=== PATIENT | female | born 1930 | race American Indian/Alaskan Native ===

== ENCOUNTER 2018-01-13 16:07 | Inpatient (IN) | payer MEDICARE ==
--- NOTE | 2018-01-13 18:07 | Emergency Department Report ---
ED Altered Mental Status HPI - General Chief Complaint: Altered Mental Status Stated Complaint: CVA Time Seen by Provider: 01/13/18 17:53 Source: EMS Mode of arrival: Stretcher Limitations: Altered Mental Status - History of Present Illness Initial Comments: Sent from skilled nursing with change in mental status. Does have hx history of previous CVA. With history of dnr per [facility], the family states that she is now no longer able to speak with worsening of her left-sided deficits, there were that she had a new event the symptoms are worse since Wednesday she is awake she is following commands with eyes open, but speech d/o and worse left sided weakness, pt here from tx for further eval, poss worsening swallowing per family. 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 MD Complaint: altered mental status, weakness -: days(s) Severity: Unable to Determine Context: other (lives in tx) - Related Data Home Medications Medication Instructions Recorded Confirmed Last Taken Amoxicillin/Potassium Clav 1 each PO BID 01/13/18 01/13/18 Unknown [Augmentin 875-125 Tablet] Aspirin 81 mg PO QDAY 01/13/18 01/13/18 Unknown Docusate Sodium [Colace] 100 mg PO BID PRN 01/13/18 01/13/18 Unknown Ferrous Sulfate [Feosol] 325 mg PO BID 01/13/18 01/13/18 Unknown Glucagon,Human Recombinant 1 mg IJ Q15MIN PRN 01/13/18 01/13/18 Unknown [Glucagon Emergency Kit] Allergies Allergy/AdvReac Type Severity Reaction Status Date / Time No Known Allergies Allergy Unverified 01/13/18 20:54 ED Review of Systems ROS: Stated complaint: CVA Other details as noted in HPI Comment: Unobtainable due to pts medical conditions ED Past Medical Hx - Medications Home Medications: Home Medications Medication Instructions Recorded Confirmed Last Taken Type Amoxicillin/Potassium Clav 1 each PO BID 01/13/18 01/13/18 Unknown History [Augmentin 875-125 Tablet] Aspirin 81 mg PO QDAY 01/13/18 01/13/18 Unknown History Docusate Sodium [Colace] 100 mg PO BID PRN 01/13/18 01/13/18 Unknown History Ferrous Sulfate [Feosol] 325 mg PO BID 01/13/18 01/13/18 Unknown History Glucagon,Human Recombinant 1 mg IJ Q15MIN PRN 01/13/18 01/13/18 Unknown History [Glucagon Emergency Kit] ED Physical Exam - General Limitations: Altered Mental Status General appearance: other (eyes open awake, supple neck, aphasic and dysarthric w/ l side deficitis upper/lower) - Eye Eye exam: Present: nystagmus - ENT ENT exam: Present: other (no stridor) - Neck Neck exam: Present: normal inspection. Absent: tenderness, meningismus - Respiratory Respiratory exam: Present: normal lung sounds bilaterally. Absent: wheezes, rales, rhonchi, stridor, chest wall tenderness, accessory muscle use, decreased breath sounds, prolonged expiratory - Cardiovascular Cardiovascular Exam: Present: regular rate - GI/Abdominal GI/Abdominal exam: Present: soft. Absent: tenderness, guarding, rebound, rigid , mass, bruit, pulsatile mass - Extremities Exam Extremities exam: Absent: joint swelling, calf tenderness - Back Exam Back exam: Absent: rash noted - Neurological Exam Neurological exam: Present: other (slurred speech, dense left-sided hemiparesis) - Skin Skin exam: Absent: cyanosis, diaphoretic, erythema, urticaria, vesicles, petechiae, pallor - Assessment Assessment Interval: Baseline - Level of Consciousness 1a. Level of Consciousness: not alert, arousable - LOC Questions 1b. LOC Questions: answers no questions correctly - LOC Command 1c. LOC Commands: performs no tasks correctly - Best Gaze 2. Best Gaze: partial gaze palsy - Visual 3. Visual: partial hemianopia - Facial Palsy 4. Facial Palsy: partial paralysis - Motor Arm 5b. Motor Arm Right: no drift 5a. Motor Arm Left: no movement - Motor Leg 6a. Motor Leg Left: no movement 6b. Motor Leg Right: no drift - Limb Ataxia 7. Limb Ataxia: present 1 limb - Sensory 8. Sensory: mild/moderate sensory loss - Best Language 9. Best Language: mild/moderate aphasia - Dysarthria 10. Dysarthria: mild/moderate dysarthria - Extinction and Inattention 11. Extinction/Inattention: visual/tactile inattention - Scoring Total Score: 22 Stroke Severity: Severe Stroke ED Course Vital Signs 01/13/18 01/13/18 01/13/18 16:11 16:20 18:38 Temperature 100.8 F H Pulse Rate 120 H 120 H 116 H Respiratory 32 H 36 H 29 H Rate Blood Pressure 188/90 Blood Pressure 144/77 [Left] O2 Sat by Pulse 96 100 Oximetry 01/13/18 01/13/18 01/13/18 18:46 19:00 19:16 Temperature Pulse Rate 121 H 112 H 124 H Respiratory 29 H 31 H 41 H Rate Blood Pressure 147/65 147/65 143/68 Blood Pressure [Left] O2 Sat by Pulse 91 99 100 Oximetry 01/13/18 01/13/18 01/13/18 19:30 19:46 20:49 Temperature Pulse Rate 116 H 113 H 118 H Respiratory 36 H 36 H 29 H Rate Blood Pressure 143/68 143/68 143/68 Blood Pressure [Left] O2 Sat by Pulse 99 100 98 Oximetry - Reevaluation(s) Reevaluation #1: 01/13/18 22:06 Patient was placed in a room studies were obtained case was discussed with [facility] nurse practitioner merline - Lab Data Result diagrams: 01/13/18 18:24 01/13/18 18:24 Lab Results 01/13/18 01/13/18 Range/Units 18:24 18:24 WBC 12.0 H (4.5-11.0) K/mm3 RBC 3.06 L (3.65-5.03) M/mm3 Hgb 7.7 L (10.1-14.3) gm/dl Hct 25.4 L (30.3-42.9) % MCV 83 (79-97) fl MCH 25 L (28-32) pg MCHC 30 (30-34) % RDW 18.7 H (13.2-15.2) % Plt Count 238 (140-440) K/mm3 Lymph % (Auto) 4.9 L (13.4-35.0) % [place] % (Auto) 4.8 (0.0-7.3) % Eos % (Auto) 0.1 (0.0-4.3) % Baso % (Auto) 0.5 (0.0-1.8) % Lymph # 0.6 L (1.2-5.4) K/mm3 [place] # 0.6 (0.0-0.8) K/mm3 Eos # 0.0 (0.0-0.4) K/mm3 Baso # 0.1 (0.0-0.1) K/mm3 Seg Neutrophils % 89.7 H (40.0-70.0) % Seg Neutrophils # 10.7 H (1.8-7.7) K/mm3 Sodium 147 H (137-145) mmol/L Potassium 4.6 (3.6-5.0) mmol/L Chloride 111.0 H (98-107) mmol/L Carbon Dioxide 19 L (22-30) mmol/L Anion Gap 22 mmol/L BUN 25 H (7-17) mg/dL Creatinine 1.4 H (0.7-1.2) mg/dL Estimated GFR 43 ml/min BUN/Creatinine Ratio 18 % Glucose 166 H (65-100) mg/dL Calcium 7.9 L (8.4-10.2) mg/dL Total Bilirubin 0.70 (0.1-1.2) mg/dL AST 21 (5-40) units/L ALT 15 (7-56) units/L Alkaline Phosphatase 525 H (35-129) units/L Troponin T 0.122 H* (0.00-0.029) ng/mL Total Protein 6.7 (6.3-8.2) g/dL Albumin 2.5 L (3.9-5) g/dL Albumin/Globulin Ratio 0.6 % Triglycerides 88 (2-149) mg/dL Cholesterol 181 (50-199) mg/dL LDL Cholesterol Direct 128 (50-130) mg/dL HDL Cholesterol 36 L (40-59) mg/dL Cholesterol/HDL Ratio 5.02 % - EKG Data -: EKG Interpreted by Id EKG shows normal: sinus rhythm Interpretation: nonspecific ST-T wave [place], other (nonspecific ST change PACs) - Radiology Data Radiology results: report reviewed - Medical Decision Making nurse practitioner from [facility] states that patient is DO NOT RESUSCITATE. Family did confirm this. CT shows subacute evolving right-sided MCA stroke this was relayed to the family. I did discuss case with hospitalist dr taylor, for admit for further evaluation of stroke they are recommending a swallowing study and a peg, family is aware that patient may not be a candidate for rehabilitation. Internal medicine will admit the patient and further evaluate the patient, and dr claudia robison pt in ed, trop is elev , ekg nonspecific st changes. pt for admit Critical care attestation.: If time is entered above; I have spent that time in minutes in the direct care of this critically ill patient, excluding procedure time. ED Disposition Clinical Impression: CVA (cerebral vascular accident) Disposition: OP ADMIT IP TO THIS HOSP Is pt being admited?: Yes Condition: Stable Referrals: PRIMARY CARE, [Primary Care Provider] - 3-5 Days Time of Disposition: 22:11
[2018-01-13 18:42] LABS: Basophils # (Auto) 0.1 K/mm3 (0.0-0.1); Basophils % (Auto) 0.5 % (0.0-1.8); Eosinophils % (Auto) 0.1 % (0.0-4.3); Hematocrit 25.4 % (30.3-42.9); Hemoglobin 7.7 gm/dl (10.1-14.3); Lymphocytes # (Auto) 0.6 K/mm3 (1.2-5.4); Lymphocytes % (Auto) 4.9 % (13.4-35.0); Mean Corpuscular HGB Conc 30 % (30-34); Mean Corpuscular Volume 83 fl (79-97); Monocytes # (Auto) 0.6 K/mm3 (0.0-0.8); Monocytes % (Auto) 4.8 % (0.0-7.3); Platelet Count 238 K/mm3 (140-440); Red Blood Count 3.06 M/mm3 (3.65-5.03); Red Cell Distribution Width 18.7 % (13.2-15.2)
--- NOTE | 2018-01-13 18:47 | Cat Scan Report ---
FINAL REPORT PROCEDURE: CT HEAD/BRAIN WO CON TECHNIQUE: Computerized tomography of the head was performed without contrast material. HISTORY: Altered Mental Status COMPARISON: No prior studies are available for comparison. FINDINGS: There is extensive low attenuation in the right middle cerebral artery distribution, compatible with subacute appearing infarct. No evidence of acute hemorrhage. No midline shift. Basal cisterns are preserved. The intracranial arteries are symmetric in density. No hydrocephalus. Calvarium is intact. There is partial opacification of the left maxillary sinus. IMPRESSION: Right middle artery distribution infarction, which has an acute or subacute appearance. Correlation with MRI could be obtained to evaluate chronicity. Findings were discussed with Dr. Cox by telephone at 5:40 p.m. central standard time on 01/13/2018.
[2018-01-13 18:52] LABS: Mean Corpuscular Hemoglobin 25 pg (28-32)
[2018-01-13 19:07] LABS: Albumin 2.5 g/dL (3.9-5); Calcium 7.9 mg/dL (8.4-10.2)
[2018-01-13] MEDS ORDERED: NACL 0.9% 1000 ML 1,000 ML IV SCH (20:00)
[2018-01-13 20:40] LABS: Chol/HDL Ratio 5.02 %
--- NOTE | 2018-01-13 20:59 | XRay Report ---
FINAL REPORT PROCEDURE: XR CHEST 1V AP TECHNIQUE: Chest radiograph anteroposterior view. CPT 75548 HISTORY: ams COMPARISON: No prior studies are available for comparison. FINDINGS: Heart: Normal. Mediastinum/Vessels: Tortuous or ectatic aorta. Lungs/Pleural space: No infiltrate, effusion, or pneumothorax. Bony thorax: No acute osseous abnormality. Life support devices: None. IMPRESSION: No radiographic evidence of acute cardiopulmonary abnormality.
[2018-01-13] MEDS ORDERED: TYLENOL PR ONE (21:01)
--- NOTE | 2018-01-13 23:49 | History and Physical Report ---
History of Present Illness Date of examination: 01/13/18 Date of admission: 01/13/18 22:13 Chief complaint: Altered mental status and slurred speech History of present illness: Sent from care home with change in mental status. Does have hx history of previous CVA. With history of DNR per [facility] this was confirmed by the patient's daughter at bedside. the family states that she is now no longer able to speak with worsening of her left-sided deficits, there were that she had a new event the symptoms are worse since Wednesday. She is awake but nonverbal not following commands with eyes open, and worse left sided weakness, pt here from [place] for further eval, poss worsening swallowing per family. 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 Past History Past Medical History: stroke Past Surgical History: Other (unknown) Social history: no significant social history Family history: no significant family history Medications and Allergies Allergies Allergy/AdvReac Type Severity Reaction Status Date / Time No Known Allergies Allergy Unverified 01/13/18 20:54 Home Medications Medication Instructions Recorded Confirmed Last Taken Type Acetaminophen 650 mg PO Q6H PRN 01/13/18 01/13/18 Unknown History Acetaminophen [Tylenol Arthritis] 650 mg PO BID PRN 01/13/18 01/13/18 Unknown History Amoxicillin/Potassium Clav 1 each PO BID 01/13/18 01/13/18 Unknown History [Augmentin 875-125 Tablet] Aspirin 81 mg PO QDAY 01/13/18 01/13/18 Unknown History Cholecalciferol Vit D3 [Vitamin D3] 1,000 unit PO QDAY 01/13/18 01/13/18 Unknown History Docusate Sodium [Colace] 100 mg PO BID PRN 01/13/18 01/13/18 Unknown History Ferrous Sulfate [Feosol] 325 mg PO BID 01/13/18 01/13/18 Unknown History Glucagon,Human Recombinant 1 mg IJ Q15MIN PRN 01/13/18 01/13/18 Unknown History [Glucagon Emergency Kit] Insulin Lispro [Humalog] See Protocol SQ BID 01/13/18 01/13/18 Unknown History Levofloxacin [Levaquin TAB] 500 mg PO QDAY 01/13/18 01/13/18 Unknown History Melatonin 5 mg PO QHS 01/13/18 01/13/18 Unknown History Multivitamin [Multiple Vitamins] 1 each PO QDAY 01/13/18 01/13/18 Unknown History Omeprazole 20 mg PO QDAY 01/13/18 01/13/18 Unknown History cefTRIAXone [Rocephin] 1 gm IM Q24HR 01/13/18 01/13/18 Unknown History Active Meds: Active Medications Sodium Chloride (Nacl 0.9% 1000 Ml) 1,000 mls @ 75 mls/hr IV DIRECT KASSANDRA Last Admin: 01/13/18 22:01 Dose: 75 mls/hr Review of Systems ROS unobtainable: due to mental status Exam - Physical Exam Narrative exam: General: the patient is awake, not following commands not answering questions nonverbal but no evidence of acute distress HEENT: Head is atraumatic normocephalic,. Pupils equal round reactive to light. Oral mucosa moist. Oropharynx clear. No pharyngeal erythema or tonsillar exudate. Neck: Supple no JVD no thyromegaly or lymphadenopathy. Heart: Regular rate and rhythm no murmurs or gallops. S1 and S2 normal. PMI not displaced. Lungs: Clear to auscultation bilaterally. No rales rhonchi wheezing. Nonlabored breathing. Normal chest wall expansion. Abdomen: Soft, nondistended, and nontender. Normoactive bowel sounds. No hepatosplenomegaly. No abdominal masses or bruit appreciated. Extremities: No cyanosis/clubbing/ edema. Musculoskeletal: Patient is turned to one side in a contracted position neck is also turned to the right-side. Increased muscle tone Back: Unable to assess because of body position Neurological: Patient is nonverbal not following commands limited exam. Right upper extremity contractures but able to move slightly. But dense left-sided hemiplegia and right lower extremity also severely weak . Skin: Warm and dry no rashes or bruises. Psychiatric: Unable to assess because patient is nonverbal and altered mental status. Vascular system: No lymphadenopathy. Distal pulses 2+ bilaterally. - Constitutional Vitals: Temp Pulse Resp BP Pulse Ox 101 F H 113 H 30 H 135/60 99 01/13/18 23:22 01/13/18 23:22 01/13/18 23:22 01/13/18 23:22 01/13/18 23:22 Results - Labs CBC & Chem 7: 02/15/18 18:24 01/13/18 18:24 Labs: Laboratory Last Values WBC 12.0 K/mm3 (4.5-11.0) H 01/13/18 18:24 RBC 3.06 M/mm3 (3.65-5.03) L 01/13/18 18:24 Hgb 7.7 gm/dl (10.1-14.3) L 01/13/18:24 Hct 25.4 % (30.3-42.9) L 01/13/18 18:24 MCV 83 fl (79-97) 01/13/18 18:24 MCH 25 pg (28-32) L 01/13/18 18:24 MCHC 30 % (30-34) 01/13/18: RDW 18.7 % (13.2-15.2) H 01/13/18 18:24 Plt Count 238 K/mm3 (140-440) 01/13/18 18:24 Lymph % (Auto) 4.9 % (13.4-35.0) L 01/13/18 18:24 [place] % (Auto) 4.8 % (0.0-7.3) 01/13/18 18:24 Eos % (Auto) 0.1 % (0.0-4.3) 01/13/18 18: Baso % (Auto) 0.5 % (0.0-1.8) 01/13/18 18:24 Lymph # 0.6 K/mm3 (1.2-5.4) L 01/13/18 18:24 [place] # 0.6 K/mm3 (0.0-0.8) 01/13/18 18:24 Eos # 0.0 K/mm3 (0.0-0.4) 01/13/18 18:24 Baso # 0.1 K/mm3 (0.0-0.1) 01/13/18 18: Seg Neutrophils % 89.7 % (40.0-70.0) H 01/13/18 18:24 Seg Neutrophils # 10.7 K/mm3 (1.8-7.7) H 01/13/18 18:24 Sodium 147 mmol/L (137-145) H 01/13/18 18:24 Potassium 4.6 mmol/L (3.6-5.0) 01/13/18 18:24 Chloride 111.0 mmol/L (98-107) H 01/13/18 18:24 Carbon Dioxide 19 mmol/L (22-30) L 01/13/18 18:24 Anion Gap 22 mmol/L 01/13/18 18:24 BUN 25 mg/dL (7-17) H 01/13/18 18:24 Creatinine 1.4 mg/dL (0.7-1.2) H 01/13/18 18:24 Estimated GFR 43 ml/min 01/13/18 18:24 BUN/Creatinine Ratio 18 % 01/13/18 18:24 Glucose 166 mg/dL (65-100) H 01/13/18 18:24 POC Glucose 165 (70-105) H 01/13/18 23:05 Calcium 7.9 mg/dL (8.4-10.2) L 01/13/18 18:24 Total Bilirubin 0.70 mg/dL (0.1-1.2) 01/13/18 18:24 AST 21 units/L (5-40) 01/13/18 18:24 ALT 15 units/L (7-56) 01/13/18 18:24 Alkaline Phosphatase 525 units/L (35-129) H 01/13/18 18:24 Troponin T 0.122 ng/mL (0.00-0.029) H* 01/13/18 18:24 Total Protein 6.7 g/dL (6.3-8.2) 01/13/18 18:24 Albumin 2.5 g/dL (3.9-5) L 01/13/18 18:24 Albumin/Globulin Ratio 0.6 % 01/13/18 18:24 Triglycerides 88 mg/dL (2-149) 01/13/18 18:24 Cholesterol 181 mg/dL (50-199) 01/13/18 18:24 LDL Cholesterol Direct 128 mg/dL (50-130) 01/13/18 18:24 HDL Cholesterol 36 mg/dL (40-59) L 01/13/18 18:24 Cholesterol/HDL Ratio 5.02 % 01/13/18 18:24 - Imaging and Cardiology Imaging and Cardiology: CT head and brain without contrast showing right MCA territory infarct which is an acute or subacute appearance. Chest x-ray - Showing no acute cardiopulmonary process Assessment and Plan Assessment and plan: Assessment and plan - * Acute right MCA ischemic infarct / CVA * Anemia -likely chronic * Acute renal failure - likely due to volume depletion hypovolemia, patient was on HCTZ at home * Aphasia and dense left hemiplegia - due to acute CVA * Leukocytosis with fever * Elevated troponin - likely due to acute renal failure. EKG negative Plan - Admitted to telemetry floor MRI / MRA head and neck Echocardiogram Serial cardiac enzymes Swallow eval PT OT to evaluate and treat May need PEG placement 2 unit PRBC transfusion Anemia studies as ordered. Treat appropriately as indicated Aggressive IV fluid rehydration, monitor renal function closely. I will all NSAIDs and other nephrotoxins. Renally dose all medications Strict I's and O's, monitor volume status and electrolytes Monitor CBC and electrolytes Replace electrolytes when necessary as per protocol DVT GI prophylaxis as ordered, No anticoagulation because of the large MCA ischemic infarct for fear of hemorrhagic transformation Monitor and follow the patient closely Discussed with family patient remains DO NOT RESUSCITATE Family was updated and informed , and questions answered. Very poor prognosis Advance Directives: Yes VTE prophylaxis?: Mechanical Contraindication Mechanical VTE Prophylaxis: Contraindicated Reason for no VTE Prophylaxis: Medical contraindication (large ischemic infarct. Fear Of hemorrhagic transformation) Plan of care discussed with patient/family: Yes
[2018-01-14] MEDS ORDERED: ZOFRAN IV PRN (00:08)
[2018-01-14] MEDS ORDERED: APRESOLINE IV PRN (00:08)
[2018-01-14] MEDS ORDERED: D50W (25GM) Syringe IV PRN (00:08)
[2018-01-14] MEDS ORDERED: DULCOLAX PR PRN (00:08)
[2018-01-14] MEDS ORDERED: PHENERGAN PR PRN (00:08)
[2018-01-14] MEDS ORDERED: SODIUM CHLORIDE FLUSH SYRINGE 10 ML IV PRN (00:08)
[2018-01-14] MEDS ORDERED: PROVENTIL IH PRN (00:08)
[2018-01-14] MEDS ORDERED: VANCOMYCIN VIAL IV ONE (00:36)
[2018-01-14] MEDS ORDERED: NACL 0.9% 500 ML 500 ML IV ONE (00:40)
[2018-01-14] MEDS ORDERED: VANCOMYCIN PHARMACY TO DOSE IV SCH ×2 (01:00)
[2018-01-14] MEDS ORDERED: VANCOMYCIN 1,250 MG in NACL 0.9% 250ML 250 ML IV ONE (01:30)
[2018-01-14] MEDS ORDERED: DUONEB *Not for PRN Use IH SCH (02:00)
[2018-01-14 03:58] LABS: Amorphous Crystals,Urine Few; Bacteria,Urine 1+ /HPF (Negative); Bilirubin,Urine NEG (Negative); Blood,Urine SM (Negative); Color,Urine Yellow (Yellow); Protein,Urine <15 mg/dL mg/dL (Negative); Urobilinogen,Urine < 2.0 mg/dL (<2.0)
[2018-01-14] MEDS: ZOSYN/NS 2.25 GM/50ML 2.25 GM/50 ML BAG IV SCH ×2 (05:10→12:30)
[2018-01-14] MEDS ORDERED: ZOSYN/NS 3.375GM/50ML 3.375 GM/50 ML BAG IV SCH (06:00)
[2018-01-14 06:11] LABS: Creatine Kinase MB 2.1 ng/mL (0.0-4.0)
[2018-01-14] MEDS: DUONEB *Not for PRN Use IH SCH ×3 (07:32→19:37)
[2018-01-14] MEDS ORDERED: PROTONIX IV SCH (10:00)
[2018-01-14] MEDS ORDERED: ZITHROMAX 500 MG in NACL 0.9% 250ML 250 ML IV SCH (10:00)
[2018-01-14] MEDS: PEPCID IV SCH (10:14)
--- NOTE | 2018-01-14 11:09 | Consultation ---
History of Present Illness Consult date: 01/14/18 Requesting physician: ANNA GREGORY Reason for Consult: Acute right MCA stroke History of present illness: This 87 year old rt. handed female presents from a shelter where she has lived for the past 10 years. She was in her usual state of health, which consists of dementia, talkative, using a wheelchair but able to walk with assistance and no focal weakness. Two to three days ago family began to notice left facial droop and left arm weakness. She also stopped communicating. She was transported to ER for evaluation of acute stroke. Daughter says that she has been having some trouble swallowing, and they have been trying different antibiotics for her at the shelter. She had a previous stroke 20 years ago from which she recovered completely. Apparently it also caused left weakness. daughter notes PMH of labile blood pressure. No diabetes or heart disease. Never smoked. Past History Past Medical History: hypertension, stroke Past Surgical History: Other (unknown) Social history: no significant social history, . denies: smoking, alcohol abuse Family history: no significant family history, cancer (father of cancer, mother with ETOH complications. ) Medications and Allergies Allergies Allergy/AdvReac Type Severity Reaction Status Date / Time No Known Allergies Allergy Verified 01/14/18 01:11 Home Medications Medication Instructions Recorded Confirmed Last Taken Type Acetaminophen 650 mg PO Q6H PRN 01/13/18 01/13/18 Unknown History Acetaminophen [Tylenol Arthritis] 650 mg PO BID PRN 01/13/18 01/13/18 Unknown History Amoxicillin/Potassium Clav 1 each PO BID 01/13/18 01/13/18 Unknown History [Augmentin 875-125 Tablet] Aspirin 81 mg PO QDAY 01/13/18 01/13/18 Unknown History Cholecalciferol Vit D3 [Vitamin D3] 1,000 unit PO QDAY 01/13/18 01/13/18 Unknown History Docusate Sodium [Colace] 100 mg PO BID PRN 01/13/18 01/13/18 Unknown History Ferrous Sulfate [Feosol] 325 mg PO BID 01/13/18 01/13/18 Unknown History Glucagon,Human Recombinant 1 mg IJ Q15MIN PRN 01/13/18 01/13/18 Unknown History [Glucagon Emergency Kit] Insulin Lispro [Humalog] See Protocol SQ BID 01/13/18 01/13/18 Unknown History Levofloxacin [Levaquin TAB] 500 mg PO QDAY 01/13/18 01/13/18 Unknown History Melatonin 5 mg PO QHS 01/13/18 01/13/18 Unknown History Multivitamin [Multiple Vitamins] 1 each PO QDAY 01/13/18 01/13/18 Unknown History Omeprazole 20 mg PO QDAY 01/13/18 01/13/18 Unknown History cefTRIAXone [Rocephin] 1 gm IM Q24HR 01/13/18 01/13/18 Unknown History Active Meds: Active Medications Acetaminophen (Tylenol) 650 mg PO Q4H PRN PRN Reason: Pain, Mild (1-3) Acetaminophen (Tylenol) 650 mg [place] Q4H PRN PRN Reason: Pain MILD(1-3)/Fever >100.5/[place] Albuterol (Proventil) 2.5 mg IH Q4HRT PRN PRN Reason: Shortness Of Breath Albuterol/Ipratropium (Duoneb *Not For Prn Use*) 1 ampul IH TIDRT [facility] Last Admin: 01/14/18 07:32 Dose: 1 ampul Aspirin (Aspirin) 300 mg [place] QDAY KASSANDRA Bisacodyl (Dulcolax) 10 mg [place] QDAY PRN PRN Reason: Constipation unrelieved by MOM Dextrose (D50w (25gm) Syringe) 50 ml IV PRN PRN PRN Reason: Hypoglycemia Famotidine (Pepcid) 20 mg IV DAILY [facility] Last Admin: 01/14/18 10:14 Dose: 20 mg Hydralazine HCl (Apresoline) 10 mg IV Q6H PRN PRN Reason: Keep SBP between 160-185 mm Hg Sodium Chloride (Nacl 0.9% 1000 Ml) 1,000 mls @ 75 mls/hr IV DIRECT KASSANDRA Last Admin: 01/13/18 22:01 Dose: 75 mls/hr Azithromycin 500 mg/ Sodium (Chloride) 250 mls @ 250 mls/hr IV Q24HR [facility] Last Admin: 01/14/18 10:13 Dose: 250 mls/hr Dextrose/Sodium Chloride (D5/0.45ns) 1,000 mls @ 125 mls/hr IV DIRECT KASSANDRA Piperacillin Sod/Tazobactam Sod (Zosyn/Ns 2.25 Gm/50ml) 2.25 gm in 50 mls @ 100 mls/hr IV Q6HR KASSANDRA PRN Reason: Protocol Last Admin: 01/14/18 05:10 Dose: 100 mls/hr Morphine Sulfate (Morphine) 2 mg IV Q4H PRN PRN Reason: Pain, Moderate (4-6) Ondansetron HCl (Zofran) 4 mg IV Q8H PRN PRN Reason: N/V unrelieved by Reglan Promethazine HCl (Phenergan) 25 mg [place] Q6H PRN PRN Reason: Nausea And Vomiting Sodium Chloride (Sodium Chloride Flush Syringe 10 Ml) 10 ml IV PRN PRN PRN Reason: LINE FLUSH Vancomycin HCl (Vancomycin Pharmacy To Dose) 1 each IV PKCONSULT KASSANDRA PRN Reason: Protocol Review of Systems ROS unobtainable: due to mental status Physical Examination - Vital Signs Vital Signs: Vital Signs Pulse Resp BP Pulse Ox 120 H 32 H 188/90 96 01/13/18 16:11 01/13/18 16:11 01/13/18 16:11 01/13/18 16:11 - Physical Exam Narrative exam: HEENT - pupils perrl. Eyes deviated to the right no inflamation. Chest - clear to auscultation. Heart - reg. rate, nl S-1, S-2 Abdomen - soft, nontender. Extremities - no CCE Neurological - Eyes closed, does open them spontaneously. No verbalization. Does not follow commands. CN's - right gaze deviation. left facial droop. Motor - left arm flaccid. occasional movement of left lower extremity Reflexes - slightly more brisk on left. no clonus or babinski Sensory - difficult to assess. appreciates pain. Cerebellar - unable to assess. Results - Laboratory Findings CBC and BMP: 01/13/18 18:24 01/13/18 18:24 Abnormal Lab Findings: Abnormal Labs 01/13/18 01/13/18 01/13/18 18:24 18:24 23:05 WBC 12.0 H RBC 3.06 L Hgb 7.7 L Hct 25.4 L MCH 25 L RDW 18.7 H Lymph % (Auto) 4.9 L Lymph # 0.6 L Seg Neutrophils % 89.7 H Seg Neutrophils # 10.7 H Sodium 147 H Chloride 111.0 H Carbon Dioxide 19 L BUN 25 H Creatinine 1.4 H Glucose 166 H POC Glucose 165 H Calcium 7.9 L Transferrin Alkaline Phosphatase 525 H Troponin T 0.122 H* Albumin 2.5 L HDL Cholesterol 36 L Urine WBC (Auto) Crossmatch 01/14/18 01/14/18 01/14/18 01:05 01:05 03:25 WBC RBC Hgb Hct MCH RDW Lymph % (Auto) Lymph # Seg Neutrophils % Seg Neutrophils # Sodium Chloride Carbon Dioxide BUN Creatinine Glucose POC Glucose Calcium Transferrin 123 L Alkaline Phosphatase Troponin T Albumin HDL Cholesterol Urine WBC (Auto) 147.0 H Crossmatch See Detail CT brain - ischemic infarct entire right MCA distribution. Assessment and Plan 87 year old female with large right MCA stroke. Hypertension seems to be the only risk factor. Plan - Echo, carotid dopplers as ordered. lipid panel. swallowing test - most likely will need feeding tube.
[2018-01-14] MEDS: ASPIRIN PR SCH (11:25)
[2018-01-14 13:14] LABS: % Iron Saturation 14.1 %
[2018-01-14 16:00] LABS: Creatine Kinase MB 1.5 ng/mL (0.0-4.0)
[2018-01-14 16:11] LABS: Free T4 (Free Thyroxine) 1.63 ng/dL (0.76-1.46)
--- NOTE | 2018-01-14 16:50 | Consultation ---
History of Present Illness - Reason for Consult Consult date: 01/14/18 sepsis Requesting physician: YEYO TAVERA - History of Present Illness 87 years old female with history of previous CVA and dementia; she was in her usual state of health until January 11, when she became non verbal, confused stopped communicating. Family noted left facial droop and left arm weakness. Patient was thought to have a TIA initially. Per family, she had a UTI and was found to have leukocytosis O week before admission. It seems like she received treatment for that at the [facility]. She usually uses talkative and use a wheelchair. In the ED, initial temperature was 100.8, temperature went up to 101. Initial heart rate 120. Respiration 32. O2 sat 96. Blood pressure 180/90. Initial white count 12. 7. Platelets 238. Creatinine 1.4. UA showed large leukocyte esterase and 147 white blood cells Microbiology: Blood cultures: 01/14 ngtd Urine cultures: Respiratory cultures: Current Antimicrobials: Zosyn Vancomycin Azithro Previous Antimicrobials: . Past History Past Medical History: hypertension, stroke Past Surgical History: Other (unknown) Social history: no significant social history, . denies: smoking, alcohol abuse Family history: no significant family history, cancer (father of cancer, mother with ETOH complications. ) Medications and Allergies Allergies Allergy/AdvReac Type Severity Reaction Status Date / Time No Known Allergies Allergy Verified 01/14/18 01:11 Home Medications Medication Instructions Recorded Confirmed Last Taken Type Acetaminophen 650 mg PO Q6H PRN 01/13/18 01/13/18 Unknown History Acetaminophen [Tylenol Arthritis] 650 mg PO BID PRN 01/13/18 01/13/18 Unknown History Amoxicillin/Potassium Clav 1 each PO BID 01/13/18 01/13/18 Unknown History [Augmentin 875-125 Tablet] Aspirin 81 mg PO QDAY 01/13/18 01/13/18 Unknown History Cholecalciferol Vit D3 [Vitamin D3] 1,000 unit PO QDAY 01/13/18 01/13/18 Unknown History Docusate Sodium [Colace] 100 mg PO BID PRN 01/13/18 01/13/18 Unknown History Ferrous Sulfate [Feosol] 325 mg PO BID 01/13/18 01/13/18 Unknown History Glucagon,Human Recombinant 1 mg IJ Q15MIN PRN 01/13/18 01/13/18 Unknown History [Glucagon Emergency Kit] Insulin Lispro [Humalog] See Protocol SQ BID 01/13/18 01/13/18 Unknown History Levofloxacin [Levaquin TAB] 500 mg PO QDAY 01/13/18 01/13/18 Unknown History Melatonin 5 mg PO QHS 01/13/18 01/13/18 Unknown History Multivitamin [Multiple Vitamins] 1 each PO QDAY 01/13/18 01/13/18 Unknown History Omeprazole 20 mg PO QDAY 01/13/18 01/13/18 Unknown History cefTRIAXone [Rocephin] 1 gm IM Q24HR 01/13/18 01/13/18 Unknown History Active Meds: Active Medications Acetaminophen (Tylenol) 650 mg PO Q4H PRN PRN Reason: Pain, Mild (1-3) Acetaminophen (Tylenol) 650 mg HI Q4H PRN PRN Reason: Pain MILD(1-3)/Fever >100.5/[place] Albuterol (Proventil) 2.5 mg IH Q4HRT PRN PRN Reason: Shortness Of Breath Albuterol/Ipratropium (Duoneb *Not For Prn Use*) 1 ampul IH TIDRT [facility] Last Admin: 01/14/18 13:09 Dose: Not Given Aspirin (Aspirin) 300 mg HI QDAY [facility] Last Admin: 01/14/18 11:25 Dose: Not Given Bisacodyl (Dulcolax) 10 mg HI QDAY PRN PRN Reason: Constipation unrelieved by MOM Dextrose (D50w (25gm) Syringe) 50 ml IV PRN PRN PRN Reason: Hypoglycemia Famotidine (Pepcid) 20 mg IV DAILY [facility] Last Admin: 01/14/18 10:14 Dose: 20 mg Hydralazine HCl (Apresoline) 10 mg IV Q6H PRN PRN Reason: Keep SBP between 160-185 mm Hg Sodium Chloride (Nacl 0.9% 1000 Ml) 1,000 mls @ 75 mls/hr IV DIRECT [facility] Last Admin: 01/13/18 22:01 Dose: 75 mls/hr Azithromycin 500 mg/ Sodium (Chloride) 250 mls @ 250 mls/hr IV Q24HR [facility] Last Admin: 01/14/18 10:13 Dose: 250 mls/hr Dextrose/Sodium Chloride (D5/0.45ns) 1,000 mls @ 125 mls/hr IV DIRECT [facility] Piperacillin Sod/Tazobactam Sod (Zosyn/Ns 2.25 Gm/50ml) 2.25 gm in 50 mls @ 100 mls/hr IV Q6HR [facility] PRN Reason: Protocol Last Admin: 01/14/18 05:10 Dose: 100 mls/hr Morphine Sulfate (Morphine) 2 mg IV Q4H PRN PRN Reason: Pain, Moderate (4-6) Ondansetron HCl (Zofran) 4 mg IV Q8H PRN PRN Reason: N/V unrelieved by Reglan Promethazine HCl (Phenergan) 25 mg HI Q6H PRN PRN Reason: Nausea And Vomiting Sodium Chloride (Sodium Chloride Flush Syringe 10 Ml) 10 ml IV PRN PRN PRN Reason: LINE FLUSH Vancomycin HCl (Vancomycin Pharmacy To Dose) 1 each IV PKCONSULT [facility] PRN Reason: Protocol Review of Systems ROS unobtainable: due to endotracheal tube, due to mental status Physical Examination - Physical Exam Narrative exam: General appearance: somnolent in NAD, non conversant Eyes: anicteric sclerae, moist conjunctivae; no lid-lag; PERRLA HENT: Atraumatic; oropharynx limited Neck: Trachea midline; supple, no thyromegaly or lymphadenopathy Lungs: left crackles CV: tachy Abdomen: Soft, + mass sensation Extremities: No peripheral edema or extremity lymphadenopathy Skin: Normal temperature, turgor and texture; no rash, ulcers or subcutaneous nodules Psych: non verbal Neuro: non verbal left sided weakness Lines: - Constitutional Vitals: Vital Signs Temp Pulse Resp BP Pulse Ox 98.2 F 117 H 20 124/63 99 01/14/18 13:07 01/14/18 13:07 01/14/18 13:07 01/14/18 13:07 01/14/18 13:07 Temperature -Last 24 Hours Temperature 98.2 F Temperature 99.0 F Temperature 98.2 F Temperature 97.5 F Temperature 98.7 F Temperature 97.7 F Temperature 98.0 F Temperature 100.6 F Temperature 101 F Temperature 100.5 F Results - Labs CBC & Chem 7: 01/13/18 18:24 01/13/18 18:24 Labs: Abnormal lab results 01/13/18 01/13/18 01/13/18 Range/Units 18:24 18:24 23:05 WBC 12.0 H (4.5-11.0) K/mm3 RBC 3.06 L (3.65-5.03) M/mm3 Hgb 7.7 L (10.1-14.3) gm/dl Hct 25.4 L (30.3-42.9) % MCH 25 L (28-32) pg RDW 18.7 H (13.2-15.2) % Lymph % (Auto) 4.9 L (13.4-35.0) % Lymph # 0.6 L (1.2-5.4) K/mm3 Seg Neutrophils % 89.7 H (40.0-70.0) % Seg Neutrophils # 10.7 H (1.8-7.7) K/mm3 Sodium 147 H (137-145) mmol/L Chloride 111.0 H (98-107) mmol/L Carbon Dioxide 19 L (22-30) mmol/L BUN 25 H (7-17) mg/dL Creatinine 1.4 H (0.7-1.2) mg/dL Glucose 166 H (65-100) mg/dL POC Glucose 165 H (70-105) Calcium 7.9 L (8.4-10.2) mg/dL Iron (37-170) ug/dL TIBC (250-450) mcg/dL Transferrin (192-382) mg/dl Alkaline Phosphatase 525 H (35-129) units/L Troponin T 0.122 H* (0.00-0.029) ng/mL Albumin 2.5 L (3.9-5) g/dL HDL Cholesterol 36 L (40-59) mg/dL TSH (0.270-4.200) mlU/mL Free T4 (0.76-1.46) ng/dL Urine WBC (Auto) (0.0-6.0) /HPF Crossmatch 01/14/18 01/14/18 01/14/18 Range/Units 01:05 01:05 03:25 WBC (4.5-11.0) K/mm3 RBC (3.65-5.03) M/mm3 Hgb (10.1-14.3) gm/dl Hct (30.3-42.9) % MCH (28-32) pg RDW (13.2-15.2) % Lymph % (Auto) (13.4-35.0) % Lymph # (1.2-5.4) K/mm3 Seg Neutrophils % (40.0-70.0) % Seg Neutrophils # (1.8-7.7) K/mm3 Sodium (137-145) mmol/L Chloride (98-107) mmol/L Carbon Dioxide (22-30) mmol/L BUN (7-17) mg/dL Creatinine (0.7-1.2) mg/dL Glucose (65-100) mg/dL POC Glucose (70-105) Calcium (8.4-10.2) mg/dL Iron 22 L (37-170) ug/dL TIBC 156 L (250-450) mcg/dL Transferrin 123 L (192-382) mg/dl Alkaline Phosphatase (35-129) units/L Troponin T (0.00-0.029) ng/mL Albumin (3.9-5) g/dL HDL Cholesterol (40-59) mg/dL TSH (0.270-4.200) mlU/mL Free T4 (0.76-1.46) ng/dL Urine WBC (Auto) 147.0 H (0.0-6.0) /HPF Crossmatch See Detail 01/14/18 01/14/18 01/14/18 Range/Units 07:31 11:07 14:41 WBC (4.5-11.0) K/mm3 RBC (3.65-5.03) M/mm3 Hgb (10.1-14.3) gm/dl Hct (30.3-42.9) % MCH (28-32) pg RDW (13.2-15.2) % Lymph % (Auto) (13.4-35.0) % Lymph # (1.2-5.4) K/mm3 Seg Neutrophils % (40.0-70.0) % Seg Neutrophils # (1.8-7.7) K/mm3 Sodium (137-145) mmol/L Chloride (98-107) mmol/L Carbon Dioxide (22-30) mmol/L BUN (7-17) mg/dL Creatinine (0.7-1.2) mg/dL Glucose (65-100) mg/dL POC Glucose 220 H 199 H (70-105) Calcium (8.4-10.2) mg/dL Iron (37-170) ug/dL TIBC (250-450) mcg/dL Transferrin (192-382) mg/dl Alkaline Phosphatase (35-129) units/L Troponin T 0.176 H* D (0.00-0.029) ng/mL Albumin (3.9-5) g/dL HDL Cholesterol (40-59) mg/dL TSH (0.270-4.200) mlU/mL Free T4 (0.76-1.46) ng/dL Urine WBC (Auto) (0.0-6.0) /HPF Crossmatch 01/14/18 Range/Units 14:41 WBC (4.5-11.0) K/mm3 RBC (3.65-5.03) M/mm3 Hgb (10.1-14.3) gm/dl Hct (30.3-42.9) % MCH (28-32) pg RDW (13.2-15.2) % Lymph % (Auto) (13.4-35.0) % Lymph # (1.2-5.4) K/mm3 Seg Neutrophils % (40.0-70.0) % Seg Neutrophils # (1.8-7.7) K/mm3 Sodium (137-145) mmol/L Chloride (98-107) mmol/L Carbon Dioxide (22-30) mmol/L BUN (7-17) mg/dL Creatinine (0.7-1.2) mg/dL Glucose (65-100) mg/dL POC Glucose (70-105) Calcium (8.4-10.2) mg/dL Iron (37-170) ug/dL TIBC (250-450) mcg/dL Transferrin (192-382) mg/dl Alkaline Phosphatase (35-129) units/L Troponin T (0.00-0.029) ng/mL Albumin (3.9-5) g/dL HDL Cholesterol (40-59) mg/dL TSH 0.232 L (0.270-4.200) mlU/mL Free T4 1.63 H (0.76-1.46) ng/dL Urine WBC (Auto) (0.0-6.0) /HPF Crossmatch Assessment and Plan Assessment: 1) Sepsis: Present on admission, manifested by fever, tachycardia, leukocytosis. Etiology most likely UTI 2) UTI: urine cx pending 3) Acute right MCA infarct Plan: -follow-up blood cultures, urine culture -obtain C-reactive protein (CRP) -continue zosyn -stop vancomcyin -stop azithomycin -repeat CXR -obtain CT abdomen ? abdominal mass on exam Thank you for your consultation, will follow up with you. Cynthia Cano MD Infectious Diseases Specialist [facility] ([facility] M [phone] O [phone]
[2018-01-14 20:46] LABS: Creatine Kinase MB 1.1 ng/mL (0.0-4.0)
--- NOTE | 2018-01-14 20:49 | Consultation ---
History of Present Illness Consult date: 01/14/18 Consult reason: other History of present illness: 87 year old female admitted with altered mental status and inability to express herself in addition to left sided weakness. CT brain showin evidence of subacute right MCA infarct. Cardiology consulted for elevated troponin and sinus tachycardia with 1 episode of NSVT. Patient is non-verbal. Granddaughter at the bedside. History of CVA > 20 years ago. Also history of congestive heart failure Past History Past Medical History: hypertension, stroke Past Surgical History: Other (unknown) Social history: no significant social history, . denies: smoking, alcohol abuse Family history: no significant family history, cancer (father of cancer, mother with ETOH complications. ) Medications and Allergies Allergies Allergy/AdvReac Type Severity Reaction Status Date / Time No Known Allergies Allergy Verified 01/14/18 01:11 Home Medications Medication Instructions Recorded Confirmed Last Taken Type Acetaminophen 650 mg PO Q6H PRN 01/13/18 01/13/18 Unknown History Acetaminophen [Tylenol Arthritis] 650 mg PO BID PRN 01/13/18 01/13/18 Unknown History Amoxicillin/Potassium Clav 1 each PO BID 01/13/18 01/13/18 Unknown History [Augmentin 875-125 Tablet] Aspirin 81 mg PO QDAY 01/13/18 01/13/18 Unknown History Cholecalciferol Vit D3 [Vitamin D3] 1,000 unit PO QDAY 01/13/18 01/13/18 Unknown History Docusate Sodium [Colace] 100 mg PO BID PRN 01/13/18 01/13/18 Unknown History Ferrous Sulfate [Feosol] 325 mg PO BID 01/13/18 01/13/18 Unknown History Glucagon,Human Recombinant 1 mg IJ Q15MIN PRN 01/13/18 01/13/18 Unknown History [Glucagon Emergency Kit] Insulin Lispro [Humalog] See Protocol SQ BID 01/13/18 01/13/18 Unknown History Levofloxacin [Levaquin TAB] 500 mg PO QDAY 01/13/18 01/13/18 Unknown History Melatonin 5 mg PO QHS 01/13/18 01/13/18 Unknown History Multivitamin [Multiple Vitamins] 1 each PO QDAY 01/13/18 01/13/18 Unknown History Omeprazole 20 mg PO QDAY 01/13/18 01/13/18 Unknown History cefTRIAXone [Rocephin] 1 gm IM Q24HR 01/13/18 01/13/18 Unknown History Active Meds: Active Medications Acetaminophen (Tylenol) 650 mg PO Q4H PRN PRN Reason: Pain, Mild (1-3) Acetaminophen (Tylenol) 650 mg CA Q4H PRN PRN Reason: Pain MILD(1-3)/Fever >100.5/[place] Albuterol (Proventil) 2.5 mg IH Q4HRT PRN PRN Reason: Shortness Of Breath Albuterol/Ipratropium (Duoneb *Not For Prn Use*) 1 ampul IH TIDRT [facility] Last Admin: 01/14/18 19:37 Dose: 1 ampul Aspirin (Aspirin) 300 mg CA QDAY [facility] Last Admin: 01/14/18 11:25 Dose: Not Given Bisacodyl (Dulcolax) 10 mg CA QDAY PRN PRN Reason: Constipation unrelieved by MOM Dextrose (D50w (25gm) Syringe) 50 ml IV PRN PRN PRN Reason: Hypoglycemia Famotidine (Pepcid) 20 mg IV DAILY [facility] Last Admin: 01/14/18 10:14 Dose: 20 mg Hydralazine HCl (Apresoline) 10 mg IV Q6H PRN PRN Reason: Keep SBP between 160-185 mm Hg Sodium Chloride (Nacl 0.9% 1000 Ml) 1,000 mls @ 75 mls/hr IV DIRECT [facility] Last Admin: 01/13/18 22:01 Dose: 75 mls/hr Azithromycin 500 mg/ Sodium (Chloride) 250 mls @ 250 mls/hr IV Q24HR [facility] Last Admin: 01/14/18 10:13 Dose: 250 mls/hr Dextrose/Sodium Chloride (D5/0.45ns) 1,000 mls @ 125 mls/hr IV DIRECT [facility] Piperacillin Sod/Tazobactam Sod (Zosyn/Ns 2.25 Gm/50ml) 2.25 gm in 50 mls @ 100 mls/hr IV Q6HR [facility] PRN Reason: Protocol Last Admin: 01/14/18 12:30 Dose: Not Given Morphine Sulfate (Morphine) 2 mg IV Q4H PRN PRN Reason: Pain, Moderate (4-6) Ondansetron HCl (Zofran) 4 mg IV Q8H PRN PRN Reason: N/V unrelieved by Reglan Promethazine HCl (Phenergan) 25 mg CA Q6H PRN PRN Reason: Nausea And Vomiting Sodium Chloride (Sodium Chloride Flush Syringe 10 Ml) 10 ml IV PRN PRN PRN Reason: LINE FLUSH Vancomycin HCl (Vancomycin Pharmacy To Dose) 1 each IV PKCONSULT [facility] PRN Reason: Protocol Review of Systems ROS unobtainable: due to mental status Physical Examination Vital Signs Pulse Resp BP Pulse Ox 120 H 32 H 188/90 96 01/13/18 16:11 01/13/18 16:11 01/13/18 16:11 01/13/18 16:11 General appearance: no acute distress Neck: Positive: neck supple Cardiac: Positive: Reg Rate and Rhythm Lungs: Positive: Decreased Breath Sounds Results 01/13/18 18:24 01/13/18 18:24 Cardiac Enzymes 01/14/18 01/14/18 Range/Units 05:07 14:41 CK-MB (CK-2) 2.1 1.5 (0.0-4.0) ng/mL Assessment and Plan Subacute right MCA stroke Ischemic cardiomyopathy, LVEF 30-35% Evidence of prior infarct in the LAD distribution by ECG and echocardiogram NSVT Anemia receiving blood transfusion Fever, tachycardia and leukocytosis UTI, urine culture pending Vascular dementia DNR Recommendations: Start low dose IV metoprolol Conservative medical therapy for ischemic cardiomyopathy and prior LAD infarct Discussed extensively with family at the bedside. They are agreeable with conservative therapy only
--- NOTE | 2018-01-14 20:53 | Progress Note ---
Assessment and Plan Assessment and plan: Patient is a 87 year old female. Does have hx history of previous CVA. With history of DNR per [facility] this was confirmed by the patient's daughter at bedside. Has been a [place] resident for 10 years. the family states that she is now no longer able to speak with worsening of her left-sided deficits, there were that she had a new event the symptoms are worse since Wednesday. She was in her usual state of health, which consists of dementia, talkative, using a wheelchair but able to walk with assistance and no focal weakness. Two to three days ago family began to notice left facial droop and left arm weakness. She is awake but nonverbal not following commands with eyes open, and worse left sided weakness, [place], poss worsening swallowing per family. 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 Acute right MCA ischemic infarct / CVA Anemia -likely chronic NSTEMI TYPE 2 SEPSIS Acute cystitis Failure to Thrive Acute renal failure - likely due to volume depletion hypovolemia, patient was on HCTZ at home Aphasia and dense left hemiplegia - due to acute CVA Leukocytosis with fever Elevated troponin - likely due to acute renal failure. EKG negative Plan - * Continue supportive care * Anticoagulation held due to large CVA concern for conversion to hemorrhagic str * Consult ID and also cardiology IV bruits noted. Zosyn continued vancomycin and azithromycin discontinued * We'll obtain CT abdomen and pelvis * Obtain swallow evaluation possible would need a PEG tube if family secondary agreeable to this. * Hold NSAIDs and other nephrotoxins. Renally dose all medications * Strict I's and O's, monitor volume status and electrolytes * Monitor CBC and electrolytes * Discussed with family patient remains DO NOT RESUSCITATE * Very poor prognosis History Interval history: Patient is seen today for: CVA, sepsis, NSTEMI type II Seen and examined at bedside; 24hour events reviewed; nursing staff ; no adverse overnight events reported to me; Denies any chest pain, nausea, vomiting , diarrhea No fever noted blood pressure controlled. Remains nonverbal Hospitalist Physical - Physical exam Narrative exam: General: the patient is awake, not following commands not answering questions nonverbal but no evidence of acute distress HEENT: Head is atraumatic normocephalic,. Pupils equal round reactive to light. Oral mucosa moist. Oropharynx clear. No pharyngeal erythema or tonsillar exudate. Neck: Supple no JVD no thyromegaly or lymphadenopathy. Heart: Regular rate and rhythm no murmurs or gallops. S1 and S2 normal. PMI not displaced. Lungs: Clear to auscultation bilaterally. No rales rhonchi wheezing. Nonlabored breathing. Normal chest wall expansion. Abdomen: Soft, nondistended, and nontender. Normoactive bowel sounds. No hepatosplenomegaly. No abdominal masses or bruit appreciated. Extremities: No cyanosis/clubbing/ edema. Musculoskeletal: Patient is turned to one side in a contracted position neck is also turned to the right-side. Increased muscle tone Back: Unable to assess because of body position Neurological: Patient is nonverbal not following commands limited exam. Right upper extremity contractures but able to move slightly. But dense left-sided hemiplegia and right lower extremity also severely weak . Skin: Warm and dry no rashes or bruises. Psychiatric: Unable to assess because patient is nonverbal and altered mental status. Vascular system: No lymphadenopathy. Distal pulses 2+ bilaterally. - Constitutional Vitals: Temp Pulse Resp BP Pulse Ox 101.9 F H 122 H 18 149/73 92 01/14/18 19:55 01/14/18 19:55 01/14/18 19:55 01/14/18 19:55 01/14/18 19:55 General appearance: Present: no acute distress Results - Labs CBC & Chem 7: 01/13/18 18:24 01/13/18 18:24 Labs: Laboratory Last Values WBC 12.0 K/mm3 (4.5-11.0) H 01/13/18 18:24 RBC 3.06 M/mm3 (3.65-5.03) L 01/13/18 18:24 Hgb 7.7 gm/dl (10.1-14.3) L 01/13/18 18:24 Hct 25.4 % (30.3-42.9) L 18 18:24 MCV 83 fl (79-97) 01/13/18 18:24 MCH 25 pg (28-32) L 01/13/18 18:24 MCHC 30 % (30-34) 01/13/18 18:24 RDW 18.7 % (13.2-15.2) H 01/13/18 18:24 Plt Count 238 K/mm3 (140-440) 01/13/18 18:24 Lymph % (Auto) 4.9 % (13.4-35.0) L 01/13/18 18:24 [place] % (Auto) 4.8 % (0.0-7.3) 01/13/18 18:24 Eos % (Auto) 0.1 % (0.0-4.3) 01/13/18 18:24 Baso % (Auto) 0.5 % (0.0-1.8) 01/13/18 18:24 Lymph # 0.6 K/mm3 (1.2-5.4) L 01/13/18 18:24 [place] # 0.6 K/mm3 (0.0-0.8) 01/13/18 18:24 Eos # 0.0 K/mm3 (0.0-0.4) 01/13/18 18:24 Baso # 0.1 K/mm3 (0.0-0.1) 01/13/18 18:24 Seg Neutrophils % 89.7 % (40.0-70.0) H 01/13/18 18:24 Seg Neutrophils # 10.7 K/mm3 (1.8-7.7) H 01/13/18 18:24 Sodium 147 mmol/L (137-145) H 01/13/18 18:24 Potassium 4.6 mmol/L (3.6-5.0) 01/13/18 18:24 Chloride 111.0 mmol/L (98-107) H 01/13/18 18:24 Carbon Dioxide 19 mmol/L (22-30) L 01/13/18 18:24 Anion Gap 22 mmol/L 01/13/18 18:24 BUN 25 mg/dL (7-17) H 01/13/18 18:24 Creatinine 1.4 mg/dL (0.7-1.2) H 01/13/18 18:24 Estimated GFR 43 ml/min 01/13/18 18:24 BUN/Creatinine Ratio 18 % 01/13/18 18:24 Glucose 166 mg/dL (65-100) H 01/13/18 18:24 POC Glucose 170 (70-105) H 01/14/18 16:00 Calcium 7.9 mg/dL (8.4-10.2) L 01/13/18 18:24 Iron 22 ug/dL (37-170) L 01/14/18 01:05 TIBC 156 mcg/dL (250-450) L 01/14/18 01:05 % Saturation 14.10 % 01/14/18 01:05 Transferrin 123 mg/dl (192-382) L 01/14/18 01:05 Ferritin 280.3 ng/mL (13.0-400.0) 01/14/18 01:05 Total Bilirubin 0.70 mg/dL (0.1-1.2) 01/13/18 18:24 AST 21 units/L (5-40) 01/13/18 18:24 ALT 15 units/L (7-56) 01/13/18 18:24 Alkaline Phosphatase 525 units/L (35-129) H 01/13/18 18:24 Total Creatine Kinase 43 units/L (30-135) 01/14/18 19:38 CK-MB (CK-2) 1.1 ng/mL (0.0-4.0) 01/14/18 19:38 CK-MB (CK-2) Rel Index 2.5 (0-4) 01/14/18 19:38 Troponin T 0.161 ng/mL (0.00-0.029) H* 01/14/18 19:38 Total Protein 6.7 g/dL (6.3-8.2) 01/13/18 18:24 Albumin 2.5 g/dL (3.9-5) L 01/13/18 18:24 Albumin/Globulin Ratio 0.6 % 01/13/18 18:24 Triglycerides 88 mg/dL (2-149) 01/13/18 18:24 Cholesterol 181 mg/dL (50-199) 01/13/18 18:24 LDL Cholesterol Direct 128 mg/dL (50-130) 01/13/18 18:24 HDL Cholesterol 36 mg/dL (40-59) L 01/13/18 18:24 Cholesterol/HDL Ratio 5.02 % 01/13/18 18:24 Vitamin B12 871.1 pg/mL (211-911) 01/14/18 01:05 Folate 8.58 ng/mL (7.3-26.0) 01/14/18 01:05 TSH 0.232 mlU/mL (0.270-4.200) L 01/14/18 14:41 Free T4 1.63 ng/dL (0.76-1.46) H 01/14/18 14:41 Urine Color Yellow (Yellow) 01/14/18 03:25 Urine Turbidity Clear (Clear) 01/14/18 03:25 Urine pH 6.0 (5.0-7.0) 01/14/18 03:25 Ur Specific [place] 1.006 (1.003-1.030) 01/14/18 03:25 Urine Protein <15 mg/dl mg/dL (Negative) 01/14/18 03:25 Urine Glucose (UA) Neg mg/dL (Negative) 01/14/18 03:25 Urine Ketones Neg mg/dL (Negative) 01/14/18 03:25 Urine Blood Sm (Negative) 01/14/18 03:25 Urine Nitrite Neg (Negative) 01/14/18 03:25 Urine Bilirubin Neg (Negative) 01/14/18 03:25 Urine Urobilinogen < 2.0 mg/dL (<2.0) 01/14/18 03:25 Ur Leukocyte Esterase Lg (Negative) 01/14/18 03:25 Urine WBC (Auto) 147.0 /HPF (0.0-6.0) H 01/14/18 03:25 Urine RBC (Auto) 4.0 /HPF (0.0-6.0) 01/14/18 03:25 Urine Bacteria (Auto) 1+ /HPF (Negative) 01/14/18 03:25 Urine WBC Clumps 2+ /HPF 01/14/18 03:25 Amorphous Crystals Few 01/14/18 03:25 Blood Type O POSITIVE 01/14/18 01:05 Antibody Screen Negative 01/14/18 01:05 Crossmatch See Detail 01/14/18 01:05 - Imaging and Cardiology CT scan - abdomen: pending CT scan - pelvis: image reviewed (CVA)
[2018-01-14] MEDS: TYLENOL PR PRN (21:20)
[2018-01-15] MEDS: LOPRESSOR IV SCH ×4 (00:13→18:35)
[2018-01-15] MEDS: ZOSYN/NS 2.25 GM/50ML 2.25 GM/50 ML BAG IV SCH ×5 (00:16→18:35)
[2018-01-15] MEDS: D5/0.45NS 1,000 ML IV SCH ×2 (00:16→22:03)
[2018-01-15 05:04] LABS: Basophils # (Auto) 0.1 K/mm3 (0.0-0.1); Basophils % (Auto) 0.5 % (0.0-1.8); Eosinophils % (Auto) 0.3 % (0.0-4.3); Hematocrit 27.3 % (30.3-42.9); Hemoglobin 8.7 gm/dl (10.1-14.3); Lymphocytes # (Auto) 0.6 K/mm3 (1.2-5.4); Mean Corpuscular HGB Conc 32 % (30-34); Mean Corpuscular Hemoglobin 27 pg (28-32); Mean Corpuscular Volume 83 fl (79-97); Monocytes # (Auto) 0.7 K/mm3 (0.0-0.8); Monocytes % (Auto) 5.5 % (0.0-7.3); Platelet Count 147 K/mm3 (140-440); Red Blood Count 3.28 M/mm3 (3.65-5.03); Red Cell Distribution Width 17.8 % (13.2-15.2)
[2018-01-15 05:27] LABS: Alanine Aminotransferase 11 units/L (7-56); Albumin 2.4 g/dL (3.9-5); BUN/Creatinine Ratio 21; Blood Urea Nitrogen 19 mg/dL (7-17); Calcium 7.6 mg/dL (8.4-10.2); Hemolysis Index 15
[2018-01-15] MEDS: DUONEB *Not for PRN Use IH SCH ×3 (08:05→21:10)
[2018-01-15] MEDS ORDERED: NACL ONE (10:29)
--- NOTE | 2018-01-15 11:59 | Cat Scan Report ---
CT scan of abdomen and pelvis without and with IV contrast: History: Patient with sepsis UTI and abdominal mass. Findings: Bibasilar atelectasis. No pleural or pericardial effusion. Normal liver, spleen and pancreas. Visualized pancreatic duct entering into the common bile duct at the head of the pancreas however no significant dilatation of pancreatic duct noted. Multiple calculi and distended gallbladder. No pericholecystic fluid. Suspicion of mildly dilated intrahepatic ducts. Common bile duct dilated measures 9 mm in head of pancreas. Normal adrenals. There is dilatation noted of the right and left ureter with distended urinary bladder. No calculi along the course of ureters. No calculi in the bladder. Multiple hypodensities in right kidney suggestive of cysts. Single fat-containing 1 cm diameter lesion right kidney probably the angiomyolipoma. There is a large ill-defined hypodensity noted at the left kidney measuring approximately 5-6 cm in diameter, enhancing with contrast, which may represent inflammatory or neoplastic mass or complex cyst. Atherosclerotic calcified abdominal aorta and celiac and superior mesenteric arteries. No free intraperitoneal fluid or air. No evidence of adenopathy. Other the uterus appears to be to the right of the midline and above the pelvis and appears calcified probably related to calcified fibroids. Gaseous colon with stool in colon with impaction in the rectum. No bowel obstruction. Impression: Irregular large cystic mass in left kidney with contrast enhancement highly suspicious for inflammatory or neoplastic mass or complex cyst. No perirenal stranding. Bilateral hydroureters and dilated intrarenal collecting system. Markedly distended urinary bladder. Multiple cysts right kidney. Dilated common bile duct with mildly dilated intrahepatic ducts. Pancreatic duct visualized entering into the common bile duct. Multiple calculi and distended gallbladder. Additional findings as detailed above.
--- NOTE | 2018-01-15 13:08 | Progress Note ---
Assessment and Plan - Patient Problems (1) Ischemic dilated cardiomyopathy Current Visit: Yes Status: Acute Plan to address problem: Incidental finding of a dilated ischemic cardiomyopathy in a frail elderly [facility] patient admitted with an acute CVA. We will optimize her medical therapy for coronary disease and ischemic cardiomyopathy with beta blockers, statins, aspirin, topical nitrates and afterload reducing therapy as tolerated. Otherwise, not a candidate for further aggressive cardiac evaluation and management. Subjective Date of service: 01/15/18 Interval history: Frail, elderly [facility] patient admitted with altered mental status, right- sided weakness and evidence of acute CVA. Cardiac consultation was for a nonspecific isolated rise in troponin levels. Further cardiac evaluation reveals evidence of ischemic cardiomyopathy on echocardiogram ejection fraction 30-35%. Otherwise, patient has no symptoms, no chest pain, no shortness of breath, no symptoms of heart failure and no significant cardiac dysrhythmias. Objective Vital Signs Temp Pulse Pulse Pulse Resp Resp BP 01/15/18 10:00 90 24 01/15/18 08:41 99.3 F 96 H 18 01/15/18 08:10 96 H 18 01/15/18 08:00 96 H 96 H 18 01/15/18 05:57 95 H 152/77 01/15/18 04:55 98.9 F 102 H 18 01/15/18 00:21 100 F H 116 H 18 01/15/18 00:13 117 H 159/78 01/15/18 00:00 122 H 01/14/18 19:55 101.9 F H 122 H 18 01/14/18 19:50 116 H 11 L 01/14/18 19:37 119 H 12 01/14/18 16:57 97.8 F 115 H 20 01/14/18 13:07 98.2 F 117 H 20 BP Pulse Ox 01/15/18 10:00 97 01/15/18 08:41 140/62 99 01/15/18 08:10 01/15/18 08:00 01/15/18 05:57 01/15/18 04:55 152/77 100 01/15/18 00:21 159/78 100 01/15/18 00:13 01/15/18 00:00 01/14/18 19:55 149/73 92 01/14/18 19:50 01/14/18 19:37 01/14/18 16:57 135/81 97 01/14/18 13:07 124/63 99 - Physical Examination General: No Apparent Distress, Cachectic HEENT: Positive: PERRL Neck: Positive: neck supple Cardiac: Positive: Reg Rate and Rhythm Lungs: Positive: Decreased Breath Sounds Neuro: Positive: Weakness Abdomen: Positive: Soft Skin: Positive: Clear Extremities: Absent: edema - Labs and Meds Cardiac Enzymes 01/14/18 01/14/18 01/15/18 Range/Units 14:41 19:38 04:20 AST 20 (5-40) units/L CK-MB (CK-2) 1.5 1.1 (0.0-4.0) ng/mL CBC 01/15/18 Range/Units 04:20 WBC 12.0 H (4.5-11.0) K/mm3 RBC 3.28 L (3.65-5.03) M/mm3 Hgb 8.7 L (10.1-14.3) gm/dl Hct 27.3 L (30.3-42.9) % Plt Count 147 (140-440) K/mm3 Lymph # 0.6 L (1.2-5.4) K/mm3 [place] # 0.7 (0.0-0.8) K/mm3 Eos # 0.0 (0.0-0.4) K/mm3 Baso # 0.1 (0.0-0.1) K/mm3 Comprehensive Metabolic Panel 01/15/18 Range/Units 04:20 Sodium 159 H D (137-145) mmol/L Potassium 3.8 (3.6-5.0) mmol/L Chloride 124.3 H (98-107) mmol/L Carbon Dioxide 19 L (22-30) mmol/L BUN 19 H (7-17) mg/dL Creatinine 0.9 (0.7-1.2) mg/dL Glucose 178 H (65-100) mg/dL Calcium 7.6 L (8.4-10.2) mg/dL AST 20 (5-40) units/L ALT 11 (7-56) units/L Alkaline Phosphatase 410 H (35-129) units/L Total Protein 5.7 L (6.3-8.2) g/dL Albumin 2.4 L (3.9-5) g/dL
[2018-01-15] MEDS: PEPCID IV SCH (13:11)
[2018-01-15] MEDS: ASPIRIN PR SCH (13:12)
--- NOTE | 2018-01-15 13:29 | Magnetic Resonance Report ---
MRI scan of brain: History: Stroke. Technique: Multiplanar multisequence images were obtained without contrast injection. Findings: There is large area of restricted diffusion involving the right temporoparietal region and part of right frontal lobe. Small 2-3 mm discrete focal areas of restricted diffusion in the right temporal lobe and the right posterior temporal lobe. No midline shift is noted. Ventricles appear normal in size and midline in location. No definite evidence of acute hemorrhage. No extra-axial fluid collection. Visualized cortex there is cortical atrophy. No clearly visualize restricted areas of diffusion in the cerebellum and brainstem. Opacified left maxillary sinus. Impression: Acute/subacute ischemia distribution of right middle cerebral artery. No hemorrhage. Left maxillary sinus disease.
--- NOTE | 2018-01-15 13:38 | Magnetic Resonance Report ---
MRA of the brain: History: Stroke. Findings: There is partial occlusion noted of the intracavernous portion of right internal carotid artery and complete occlusion of the right middle cerebral artery starting at the origin and probably involving the entire right middle cerebral artery. The entire right middle cerebral arteries and branches are not visualized. Atherosclerotic changes are noted of the left middle cerebral artery without significant stenoses or occlusion. Mild atherosclerotic changes are noted of the vertebral artery and basilar artery. Bilaterally posterior communicating arteries are faintly visualized. The A1 segment and A2 segments of the right and the left anterior cerebral artery are faintly visualized and may be atherosclerotic or hypoplastic. Impression: Non-visualization of right middle cerebral artery and branches probably related to thromboembolism/occlusion. Additional findings as detailed above
[2018-01-15] MEDS ORDERED: PANCREAZE DR 10,500 UNIT FEEDTUBE PRN (16:49)
[2018-01-15] MEDS ORDERED: SIMPLE SYRUP FEEDTUBE PRN ×2 (16:49)
[2018-01-15] MEDS ORDERED: SODIUM BICARBONATE FEEDTUBE PRN (16:49)
--- NOTE | 2018-01-15 17:53 | Progress Note ---
Assessment and Plan Assessment and plan: Patient is a 87 year old female. Does have hx history of previous CVA. With history of DNR per [facility] this was confirmed by the patient's daughter at bedside. Has been a [place] resident for 10 years. the family states that she is now no longer able to speak with worsening of her left-sided deficits, there were that she had a new event the symptoms are worse since Wednesday. She was in her usual state of health, which consists of dementia, talkative, using a wheelchair but able to walk with assistance and no focal weakness. Two to three days ago family began to notice left facial droop and left arm weakness. She is awake but nonverbal not following commands with eyes open, and worse left sided weakness, pt here from [place] for further eval, poss worsening swallowing per family. 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 Acute right MCA ischemic infarct / CVA Anemia -likely chronic NSTEMI TYPE 2 SEPSIS Acute cystitis Failure to Thrive Hydronephrosis with compression stocks Acute kidney injury - likeld due to volume depletion hypovolemia, patient was on HCTZ at home Aphasia and dense left hemiplegia - due to acute CVA Leukocytosis with fever Elevated troponin - likely due to acute renal failure. EKG negative Plan - * Continue supportive care * recurrent fever and now with CT finding will obtain Rotating Field Assembler. and urologist * Anticoagulation held due to large CVA concern for conversion to hemorrhagic str * Consult ID and also cardiology IV bruits noted. Zosyn continued vancomycin and azithromycin discontinued * We'll obtain CT abdomen and pelvis * Obtain swallow evaluation possible would need a PEG tube if family secondary agreeable to this. * Hold NSAIDs and other nephrotoxins. Renally dose all medications * Strict I's and O's, monitor volume status and electrolytes * Monitor CBC and electrolytes * Discussed with family patient remains DO NOT RESUSCITATE * Very poor prognosis History Interval history: Patient is seen today for: CVA, sepsis, NSTEMI type II Seen and examined at bedside; 24hour events reviewed; nursing staff ; no adverse overnight events reported to me; Denies any chest pain, nausea, vomiting , diarrhea No fever noted blood pressure controlled. Remains nonverbal Hospitalist Physical - Physical exam Narrative exam: General: the patient is awake, not following commands not answering questions nonverbal but no evidence of acute distress HEENT: Head is atraumatic normocephalic,. Pupils equal round reactive to light. Oral mucosa moist. Oropharynx clear. No pharyngeal erythema or tonsillar exudate. Neck: Supple no JVD no thyromegaly or lymphadenopathy. Heart: Regular rate and rhythm no murmurs or gallops. S1 and S2 normal. PMI not displaced. Lungs: Clear to auscultation bilaterally. No rales rhonchi wheezing. Nonlabored breathing. Normal chest wall expansion. Abdomen: Soft, nondistended, and nontender. Normoactive bowel sounds. No hepatosplenomegaly. No abdominal masses or bruit appreciated. Extremities: No cyanosis/clubbing/ edema. Musculoskeletal: Patient is turned to one side in a contracted position neck is also turned to the right-side. Increased muscle tone Back: Unable to assess because of body position Neurological: Patient is nonverbal not following commands limited exam. Right upper extremity contractures but able to move slightly. But dense left-sided hemiplegia and right lower extremity also severely weak . Skin: Warm and dry no rashes or bruises. Psychiatric: Unable to assess because patient is nonverbal and altered mental status. Vascular system: No lymphadenopathy. Distal pulses 2+ bilaterally. - Constitutional Vitals: Temp Pulse Resp BP Pulse Ox 99.8 F H 107 H 20 145/69 97 01/15/18 17:22 18 17:22 01/15/18 17:22 01/15/18 17:22 01/15/18 17:22 General appearance: Present: no acute distress Results - Labs CBC & Chem 7: 01/15/18 04:20 01/15/18 04:20 Labs: Laboratory Last Values WBC 12.0 K/mm3 (4.5-11.0) H 01/15/18 04:20 RBC 3.28 M/mm3 (3.65-5.03) L 01/15/18 04:20 Hgb 8.7 gm/dl (10.1-14.3) L 01/15/18 04:20 Hct 27.3 % (30.3-42.9) L 01/15/18 04:20 MCV 83 fl (79-97) 01/15/18 04:20 MCH 27 pg (28-32) L 01/15/18 04:20 MCHC 32 % (30-34) 01/15/18 04:20 RDW 17.8 % (13.2-15.2) H 01/15/18 04:20 Plt Count 147 K/mm3 (140-440) 01/15/18 04:20 Lymph % (Auto) 5.0 % (13.4-35.0) L 01/15/18 04:20 [place] % (Auto) 5.5 % (0.0-7.3) 01/15/18 04:20 Eos % (Auto) 0.3 % (0.0-4.3) 01/15/18 04:20 Baso % (Auto) 0.5 % (0.0-1.8) 01/15/18 04:20 Lymph # 0.6 K/mm3 (1.2-5.4) L 01/15/18 04:20 [place] # 0.7 K/mm3 (0.0-0.8) 01/15/18 04:20 Eos # 0.0 K/mm3 (0.0-0.4) 01/15/18 04:20 Baso # 0.1 K/mm3 (0.0-0.1) 01/15/18 04:20 Seg Neutrophils % 88.7 % (40.0-70.0) H 01/15/18 04:20 Seg Neutrophils # 10.7 K/mm3 (1.8-7.7) H 01/15/18 04:20 Sodium 159 mmol/L (137-145) H D 01/15/18 04:20 Potassium 3.8 mmol/L (3.6-5.0) 01/15/18 04:20 Chloride 124.3 mmol/L (98-107) H 01/15/18 04:20 Carbon Dioxide 19 mmol/L (22-30) L 01/15/18 04:20 Anion Gap 20 mmol/L 01/15/18 04:20 BUN 19 mg/dL (7-17) H 01/15/18 04:20 Creatinine 0.9 mg/dL (0.7-1.2) 01/15/18 04:20 Estimated GFR > 60 ml/min 01/15/18 04:20 BUN/Creatinine Ratio 21 % 01/15/18 04:20 Glucose 178 mg/dL (65-100) H 01/15/18 04:20 POC Glucose 205 (70-105) H 01/15/18 06:52 Calcium 7.6 mg/dL (8.4-10.2) L 01/15/18 04:20 Iron 22 ug/dL (37-170) L 01/14/18 01:05 TIBC 156 mcg/dL (250-450) L 01/14/18 01:05 % Saturation 14.10 % 01/14/18 01:05 Transferrin 123 mg/dl (192-382) L 01/14/18 01:05 Ferritin 280.3 ng/mL (13.0-400.0) 01/14/18 01:05 Total Bilirubin 1.40 mg/dL (0.1-1.2) H 01/15/18 04:20 AST 20 units/L (5-40) 01/15/18 04:20 ALT 11 units/L (7-56) 01/15/18 04:20 Alkaline Phosphatase 410 units/L (35-129) H 01/15/18 04:20 Total Creatine Kinase 43 units/L (30-135) 01/14/18 19:38 CK-MB (CK-2) 1.1 ng/mL (0.0-4.0) 01/14/18 19:38 CK-MB (CK-2) Rel Index 2.5 (0-4) 01/14/18 19:38 Troponin T 0.161 ng/mL (0.00-0.029) H* 01/14/18 19:38 Total Protein 5.7 g/dL (6.3-8.2) L 01/15/18 04:20 Albumin 2.4 g/dL (3.9-5) L 01/15/18 04:20 Albumin/Globulin Ratio 0.7 % 01/15/18 04:20 Triglycerides 88 mg/dL (2-149) 01/13/18 18:24 Cholesterol 181 mg/dL (50-199) 01/13/18 18:24 LDL Cholesterol Direct 128 mg/dL (50-130) 01/13/18 18:24 HDL Cholesterol 36 mg/dL (40-59) L 01/13/18 18:24 Cholesterol/HDL Ratio 5.02 % 01/13/18 18:24 Vitamin B12 871.1 pg/mL (211-911) 01/14/18 01:05 Folate 8.58 ng/mL (7.3-26.0) 01/14/18 01:05 TSH 0.232 mlU/mL (0.270-4.200) L 01/14/18 14:41 Free T4 1.63 ng/dL (0.76-1.46) H 01/14/18 14:41 Urine Color Yellow (Yellow) 01/14/18 03:25 Urine Turbidity Clear (Clear) 01/14/18 03:25 Urine pH 6.0 (5.0-7.0) 01/14/18 03:25 Ur Specific [place] 1.006 (1.003-1.030) 01/14/18 03:25 Urine Protein <15 mg/dl mg/dL (Negative) 01/14/18 03:25 Urine Glucose (UA) Neg mg/dL (Negative) 01/14/18 03:25 Urine Ketones Neg mg/dL (Negative) 01/14/18 03:25 Urine Blood Sm (Negative) 01/14/18 03:25 Urine Nitrite Neg (Negative) 01/14/18 03:25 Urine Bilirubin Neg (Negative) 01/14/18 03:25 Urine Urobilinogen < 2.0 mg/dL (<2.0) 01/14/18 03:25 Ur Leukocyte Esterase Lg (Negative) 01/14/18 03:25 Urine WBC (Auto) 147.0 /HPF (0.0-6.0) H 01/14/18 03:25 Urine RBC (Auto) 4.0 /HPF (0.0-6.0) 01/14/18 03:25 Urine Bacteria (Auto) 1+ /HPF (Negative) 01/14/18 03:25 Urine WBC Clumps 2+ /HPF 01/14/18 03:25 Amorphous Crystals Few 01/14/18 03:25 Blood Type O POSITIVE 01/14/18 01:05 Antibody Screen Negative 01/14/18 01:05 Crossmatch See Detail 01/14/18 01:05
--- NOTE | 2018-01-15 19:03 | Progress Note ---
Assessment and Plan Assessment: 1) Sepsis: still fever and leukocytosis. Etiology most likely UTI +/- ? GB 2) Complicated UTI: -urine cx negative -CT showed irregular large cystic mass on left kidney inflammatory vs malignancy?, bilateral hydro and dialted collecting system, markedly dialted bladder, dilated CBD and distended GB with stones. 3) Acute right MCA infarct Plan: -Urology consult -consider IR eval for large mass drainage +/- cytology -place [facility] -request HIDA scan -follow-up blood cultures, urine culture -obtain C-reactive protein (CRP) -continue zosyn Thank you for your consultation, will follow up with you. Cynthia Cano MD Infectious Diseases Specialist [facility] M [phone] O [phone] Subjective Date of service: 01/15/18 Principal diagnosis: sepsis Interval history: Non verbal, fever 101.9 yesterday Microbiology: Blood cultures: 01/14 ngtd Urine cultures: 01/14 neg Respiratory cultures: Current Antimicrobials: Zosyn 01/14 Previous Antimicrobials: Vancomycin Azithro Objective - Exam Narrative Exam: General appearance: somnolent in NAD, non conversant Eyes: anicteric sclerae, moist conjunctivae; no lid-lag; PERRLA HENT: Atraumatic; oropharynx limited +NGT Neck: Trachea midline; supple, no thyromegaly or lymphadenopathy Lungs: left crackles CV: tachy Abdomen: Soft, + mass sensation Extremities: No peripheral edema or extremity lymphadenopathy Skin: Normal temperature, turgor and texture; no rash, ulcers or subcutaneous nodules Psych: non verbal Neuro: non verbal left sided weakness Lines: - Constitutional Vitals: Vital Signs Temp Pulse Resp BP Pulse Ox 99.8 F H 107 H 20 145/69 97 01/15/18 17:22 18 17:22 01/15/18 17:22 01/15/18 17:22 01/15/18 17:22 Temperature -Last 24 Hours Temperature 99.8 F Temperature 99.1 F Temperature 99.3 F Temperature 98.9 F Temperature 100 F Temperature 101.9 F - Labs CBC & Chem 7: 01/15/18 04:20 01/15/18 04:20 Labs: Abnormal lab results 01/14/18 01/14/18 01/15/18 Range/Units 19:38 21:07 04:20 WBC 12.0 H (4.5-11.0) K/mm3 RBC 3.28 L (3.65-5.03) M/mm3 Hgb 8.7 L (10.1-14.3) gm/dl Hct 27.3 L (30.3-42.9) % MCH 27 L (28-32) pg RDW 17.8 H (13.2-15.2) % Lymph % (Auto) 5.0 L (13.4-35.0) % Lymph # 0.6 L (1.2-5.4) K/mm3 Seg Neutrophils % 88.7 H (40.0-70.0) % Seg Neutrophils # 10.7 H (1.8-7.7) K/mm3 Sodium (137-145) mmol/L Chloride (98-107) mmol/L Carbon Dioxide (22-30) mmol/L BUN (7-17) mg/dL Glucose (65-100) mg/dL POC Glucose 148 H (70-105) Calcium (8.4-10.2) mg/dL Total Bilirubin (0.1-1.2) mg/dL Alkaline Phosphatase (35-129) units/L Troponin T 0.161 H* (0.00-0.029) ng/mL Total Protein (6.3-8.2) g/dL Albumin (3.9-5) g/dL 18 01/15/18 Range/Units 04:20 06:52 WBC (4.5-11.0) K/mm3 RBC (3.65-5.03) M/mm3 Hgb (10.1-14.3) gm/dl Hct (30.3-42.9) % MCH (28-32) pg RDW (13.2-15.2) % Lymph % (Auto) (13.4-35.0) % Lymph # (1.2-5.4) K/mm3 Seg Neutrophils % (40.0-70.0) % Seg Neutrophils # (1.8-7.7) K/mm3 Sodium 159 H D (137-145) mmol/L Chloride 124.3 H (98-107) mmol/L Carbon Dioxide 19 L (22-30) mmol/L BUN 19 H (7-17) mg/dL Glucose 178 H (65-100) mg/dL POC Glucose 205 H (70-105) Calcium 7.6 L (8.4-10.2) mg/dL Total Bilirubin 1.40 H (0.1-1.2) mg/dL Alkaline Phosphatase 410 H (35-129) units/L Troponin T (0.00-0.029) ng/mL Total Protein 5.7 L (6.3-8.2) g/dL Albumin 2.4 L (3.9-5) g/dL
[2018-01-16] MEDS: ZOSYN/NS 2.25 GM/50ML 2.25 GM/50 ML BAG IV SCH ×5 (00:55→23:41)
[2018-01-16] MEDS: TYLENOL PR PRN (00:55)
[2018-01-16] MEDS: LOPRESSOR IV SCH ×2 (00:56→06:04)
[2018-01-16] MEDS: NITRO DUR TD SCH (06:01)
[2018-01-16 06:23] LABS: Hematocrit 26.6 % (30.3-42.9); Hemoglobin 8.4 gm/dl (10.1-14.3); Mean Corpuscular HGB Conc 32 % (30-34); Mean Corpuscular Hemoglobin 27 pg (28-32); Mean Corpuscular Volume 84 fl (79-97); Platelet Count 104 K/mm3 (140-440); Red Blood Count 3.16 M/mm3 (3.65-5.03)
[2018-01-16 06:37] LABS: Calcium 7.6 mg/dL (8.4-10.2)
[2018-01-16] MEDS ORDERED: SIMPLE SYRUP FEEDTUBE PRN ×2 (08:29)
[2018-01-16] MEDS ORDERED: PANCREAZE DR 10,500 UNIT FEEDTUBE PRN (08:29)
[2018-01-16] MEDS ORDERED: SODIUM BICARBONATE FEEDTUBE PRN (08:29)
[2018-01-16] MEDS: DUONEB *Not for PRN Use IH SCH ×3 (09:05→20:28)
[2018-01-16] MEDS: ASPIRIN PR SCH (10:11)
[2018-01-16] MEDS: PEPCID IV SCH (10:12)
--- NOTE | 2018-01-16 10:46 | XRay Report ---
SUPINE KUB: History: Dobbhoff tube placement. The distal tip of the Dobbhoff tube terminates in the distal esophagus. Advancement by approximately 10 cm is recommended. The bowel gas pattern is within normal limits. There is moderate residual contrast agent in both renal collecting systems and bladder. IMPRESSION: The feeding tube terminates in the distal esophagus. Advancement is recommended.
[2018-01-16] MEDS ORDERED: KINEVAC IV ONE ×2 (11:57→12:09)
[2018-01-16] MEDS ORDERED: WATER FOR INJ (PF) IV ONE (12:10)
--- NOTE | 2018-01-16 12:41 | Progress Note ---
Assessment and Plan - Patient Problems (1) Ischemic dilated cardiomyopathy Current Visit: Yes Status: Acute Plan to address problem: Incidental finding of a dilated ischemic cardiomyopathy in a frail elderly senior care patient admitted with an acute CVA. We will optimize her medical therapy for coronary disease and ischemic cardiomyopathy with beta blockers, statins, aspirin, topical nitrates and afterload reducing therapy as tolerated. Otherwise, not a candidate for further aggressive cardiac evaluation and management. Subjective Date of service: 01/16/18 Principal diagnosis: sepsis Interval history: Patient is currently undergoing HIDA scan for gallbladder assessment. No new cardiac complaints. She has an NG feeding tube, and remains noncommunicative. Objective Vital Signs Temp Pulse Pulse Resp Resp BP BP 01/16/18 09:12 114 H 18 01/16/18 09:05 112 H 18 01/16/18 05:29 99.0 F 102 H 20 132/58 01/16/18 00:55 22 01/16/18 00:37 101.8 F H 120 H 20 113/50 01/15/18 21:20 116 H 18 01/15/18 21:10 118 H 18 01/15/18 20:31 107 H 01/15/18 20:24 99.7 F H 106 H 20 127/57 01/15/18 17:22 99.8 F H 107 H 20 145/69 01/15/18 16:05 99.8 F H 106 H 18 145/69 01/15/18 15:55 79 01/15/18 14:20 108 H 18 01/15/18 14:10 107 H 18 01/15/18 13:06 99.1 F 107 H 20 151/80 Pulse Ox 01/16/18 09:12 01/16/18 09:05 01/16/18 05:29 96 01/16/18 00:55 01/16/18 00:37 96 01/15/18 21:20 01/15/18 21:10 01/15/18 20:31 01/15/18 20:24 97 01/15/18 17:22 97 01/15/18 16:05 97 01/15/18 15:55 01/15/18 14:20 01/15/18 14:10 01/15/18 13:06 100 - Physical Examination General: No Apparent Distress, Cachectic HEENT: Positive: PERRL Neck: Positive: neck supple Cardiac: Positive: Reg Rate and Rhythm Lungs: Positive: Decreased Breath Sounds Neuro: Positive: Weakness Abdomen: Positive: Soft Skin: Positive: Clear Extremities: Absent: edema - Labs and Meds CBC 01/16/18 Range/Units 06:02 WBC 10.8 (4.5-11.0) K/mm3 RBC 3.16 L (3.65-5.03) M/mm3 Hgb 8.4 L (10.1-14.3) gm/dl Hct 26.6 L (30.3-42.9) % Plt Count 104 L (140-440) K/mm3 Comprehensive Metabolic Panel 01/16/18 Range/Units 06:02 Sodium 159 H (137-145) mmol/L Potassium 3.6 (3.6-5.0) mmol/L Chloride 123.6 H (98-107) mmol/L Carbon Dioxide 19 L (22-30) mmol/L BUN 24 H (7-17) mg/dL Creatinine 1.2 (0.7-1.2) mg/dL Glucose 207 H (65-100) mg/dL Calcium 7.6 L (8.4-10.2) mg/dL
--- NOTE | 2018-01-16 13:34 | Nuclear Medicine Report ---
HEPATOBILIARY SCAN: History: Sepsis distended gallbladder, evaluate for cholecystitis. Following the injection of the radionuclide, serial scanning was obtained over the right upper quadrant. Initial imaging of the liver demonstrates a relatively normal activity pattern. Progressive concentration of the radionuclide in the bile ducts, with filling of both the gallbladder and small bowel, is identified within a normal time period. The gallbladder ejection fraction measures 51%. No symptoms were reported during the infusion of CCK. IMPRESSION: The cystic duct is patent. No evidence for acute cholecystitis. Normal ejection fraction measuring 51%.
--- NOTE | 2018-01-16 13:48 | XRay Report ---
SUPINE KUB: History: Dobbhoff tube placement, advancement. The Dobbhoff tube is essentially unchanged since yesterday's exam at 1652 hrs. and terminates in the distal esophagus. The abdominal gas pattern is unremarkable. No masses or organomegaly is identified and there is no gross evidence of free air or fluid. No significant soft tissue calcifications are noted. IMPRESSION: No change. If the Dobbhoff tube terminates in the distal esophagus.
--- NOTE | 2018-01-16 16:31 | XRay Report ---
FINAL REPORT EXAM: XR ABDOMEN 1V AP HISTORY: Dobhoff placement in stomach TECHNIQUE: Supine views of the abdomen PRIORS: None. FINDINGS: A feeding tube terminates in the stomach. The bowel gas pattern is nonspecific. No free air is identified. Soft tissues have no evidence for mass shadows but numerous vascular calcifications are noted. The bony structures are intact. IMPRESSION: Feeding tube terminates in the stomach. Nonspecific, nonobstructive bowel gas pattern with no acute process noted.
[2018-01-16] MEDS: LOPRESSOR PO SCH ×2 (17:07→23:41)
[2018-01-16] MEDS: TYLENOL PO PRN (17:18)
[2018-01-16] MEDS: D5/0.45NS 1,000 ML IV SCH (23:42)
[2018-01-17] MEDS: LOPRESSOR PO SCH ×4 (01:21→23:25)
[2018-01-17] MEDS: NITRO DUR TD SCH (05:38)
[2018-01-17] MEDS: ZOSYN/NS 2.25 GM/50ML 2.25 GM/50 ML BAG IV SCH ×4 (05:38→23:25)
[2018-01-17] MEDS: DUONEB *Not for PRN Use IH SCH ×3 (08:42→20:05)
[2018-01-17] MEDS: ZESTRIL PO SCH (10:22)
[2018-01-17] MEDS: BABY ASPIRIN PO SCH (10:23)
[2018-01-17] MEDS: PEPCID IV SCH (10:23)
--- NOTE | 2018-01-17 11:21 | Consultation ---
History of Present Illness - Reason for Consult Consult date: 01/17/18 - History of Present Illness Altered mental status and slurred speech History of present illness: [facility] with [facility] in mental status. Does have hx history of previous CVA. With history of DNR per [facility] this was confirmed by the patient's daughter at bedside. the family states that she is now no longer able to speak with worsening of her left-sided deficits, there were that she had a new event the symptoms are worse since Wednesday. She is awake but nonverbal not following commands with eyes open, and worse left sided weakness, [place], poss worsening swallowing per family. 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 oldest daughter at bedside CTAP--RT 1CM AML, 6CM LEFT RENAL MASS A/P RENAL MASS - LEFT Acute CVA Dilated Ischemic cardiomyopathy, LVEF 30-35% Anemia s/p blood transfusion Sepsis Dementia DNR status discussed with daughter options observation - this is what I recommend radical nephrectomy - high risk for rolando operative event she will discuss with rest of family Past History Past Medical History: hypertension, stroke Past Surgical History: Other (unknown) Social history: no significant social history, . denies: smoking, alcohol abuse Family history: no significant family history, cancer (father of cancer, mother with ETOH complications. ) Medications and Allergies Allergies Allergy/AdvReac Type Severity Reaction Status Date / Time No Known Allergies Allergy Verified 01/14/18 01:11 Home Medications Medication Instructions Recorded Confirmed Last Taken Type Acetaminophen 650 mg PO Q6H PRN 01/13/18 01/13/18 Unknown History Acetaminophen [Tylenol Arthritis] 650 mg PO BID PRN 01/13/18 01/13/18 Unknown History Amoxicillin/Potassium Clav 1 each PO BID 01/13/18 01/13/18 Unknown History [Augmentin 875-125 Tablet] Aspirin 81 mg PO QDAY 01/13/18 01/13/18 Unknown History Cholecalciferol Vit D3 [Vitamin D3] 1,000 unit PO QDAY 01/13/18 01/13/18 Unknown History Docusate Sodium [Colace] 100 mg PO BID PRN 01/13/18 01/13/18 Unknown History Ferrous Sulfate [Feosol] 325 mg PO BID 01/13/18 01/13/18 Unknown History Glucagon,Human Recombinant 1 mg IJ Q15MIN PRN 01/13/18 01/13/18 Unknown History [Glucagon Emergency Kit] Insulin Lispro [Humalog] See Protocol SQ BID 01/13/18 01/13/18 Unknown History Levofloxacin [Levaquin TAB] 500 mg PO QDAY 01/13/18 01/13/18 Unknown History Melatonin 5 mg PO QHS 01/13/18 01/13/18 Unknown History Multivitamin [Multiple Vitamins] 1 each PO QDAY 01/13/18 01/13/18 Unknown History Omeprazole 20 mg PO QDAY 01/13/18 01/13/18 Unknown History cefTRIAXone [Rocephin] 1 gm IM Q24HR 01/13/18 01/13/18 Unknown History Active Meds: Active Medications Acetaminophen (Tylenol) 650 mg PO Q4H PRN PRN Reason: Pain, Mild (1-3) Last Admin: 01/16/18 17:18 Dose: 650 mg Acetaminophen (Tylenol) 650 mg IN Q4H PRN PRN Reason: Pain MILD(1-3)/Fever >100.5/[place] Last Admin: 01/16/18 00:55 Dose: 650 mg Albuterol (Proventil) 2.5 mg IH Q4HRT PRN PRN Reason: Shortness Of Breath Albuterol/Ipratropium (Duoneb *Not For Prn Use*) 1 ampul IH TIDRT [facility] Last Admin: 01/17/18 08:42 Dose: 1 ampul Lipase/Protease/Amylase (Rudolph Kincaid 10,500 Unit) 1 each FEEDTUBE PRN PRN PRN Reason: For Clogged Feeding Tube Aspirin (Baby Aspirin) 81 mg PO QDAY [facility] Last Admin: 01/17/18 10:23 Dose: 81 mg Atorvastatin Calcium (Lipitor) 10 mg PO QHS [facility] Last Admin: 01/16/18 23:41 Dose: 10 mg Bisacodyl (Dulcolax) 10 mg IN QDAY PRN PRN Reason: Constipation unrelieved by MOM Dextrose (D50w (25gm) Syringe) 50 ml IV PRN PRN PRN Reason: Hypoglycemia Famotidine (Pepcid) 20 mg IV DAILY [facility] Last Admin: 01/17/18 10:23 Dose: 20 mg Hydralazine HCl (Apresoline) 10 mg IV Q6H PRN PRN Reason: Keep SBP between 160-185 mm Hg Sodium Chloride (Nacl 0.9% 1000 Ml) 1,000 mls @ 75 mls/hr IV DIRECT [facility] Last Admin: 01/13/18 22:01 Dose: 75 mls/hr Dextrose/Sodium Chloride (D5/0.45ns) 1,000 mls @ 125 mls/hr IV DIRECT [facility] Last Admin: 01/16/18 23:42 Dose: 125 mls/hr Piperacillin Sod/Tazobactam Sod (Zosyn/Ns 2.25 Gm/50ml) 2.25 gm in 50 mls @ 100 mls/hr IV Q6HR [facility] PRN Reason: Protocol Last Admin: 01/17/18 05:38 Dose: 100 mls/hr Lisinopril (Zestril) 2.5 mg PO QDAY [facility] Last Admin: 01/17/18 10:22 Dose: 2.5 mg Metoprolol Tartrate (Lopressor) 25 mg PO Q6H [facility] Last Admin: 01/17/18 01:21 Dose: Not Given Morphine Sulfate (Morphine) 2 mg IV Q4H PRN PRN Reason: Pain, Moderate (4-6) Nitroglycerin (Nitro Dur) 0.4 mg TD QDAY@0600 [facility] Last Admin: 01/17/18 05:38 Dose: 0.4 mg Ondansetron HCl (Zofran) 4 mg IV Q8H PRN PRN Reason: N/V unrelieved by Reglan Promethazine HCl (Phenergan) 25 mg IN Q6H PRN PRN Reason: Nausea And Vomiting Simple Syrup (Simple Syrup) 15 ml FEEDTUBE PRN PRN PRN Reason: Hypoglycemia Simple Syrup (Simple Syrup) 30 ml FEEDTUBE PRN PRN PRN Reason: Hypoglycemia Sodium Bicarbonate (Sodium Bicarbonate) 325 mg FEEDTUBE PRN PRN PRN Reason: For Clogged Feeding Tube Sodium Chloride (Sodium Chloride Flush Syringe 10 Ml) 10 ml IV PRN PRN PRN Reason: LINE FLUSH Exam - Constitutional Vitals: Temp Pulse Resp BP Pulse Ox 100.5 F H 102 H 16 138/59 96 01/17/18 07:34 01/17/18 08:52 01/17/18 08:52 01/17/18 07:34 01/17/18 07:34 Results - Labs CBC & Chem 7: 01/16/18 06:02 01/16/18 06:02 Labs: Abnormal lab results 01/16/18 01/17/18 Range/Units 16:57 01:22 POC Glucose 197 H 203 H (70-105)
--- NOTE | 2018-01-17 11:39 | Progress Note ---
Assessment and Plan Assessment: 1) Sepsis: still with fever. Leukocytosis is resolved. Etiology most likely UTI +/- Kidney mass 2) Complicated UTI: -urine cx negative -CT showed irregular large cystic mass on left kidney inflammatory vs malignancy?, bilateral hydro and dilated collecting system, markedly dilated bladder, dilated CBD and distended GB with stones. Biliary can no cholecystitis. 3) Acute right MCA infarct Plan: -Will f/u urology consult recommendations. -Will follow-up blood cultures. -continue zosyn. -Monitor temperature. -Repeat blood cx today. Preethi Long MD [facility] M [phone] Subjective Date of service: 01/17/18 Principal diagnosis: sepsis Interval history: Fever of 100.5. No diarrhea. Non verbal. Microbiology: Blood cultures: 01/14 ngtd Urine cultures: 01/14 neg Current Antimicrobials: Zosyn 01/14- Previous Antimicrobials: Vancomycin Azithro Objective - Exam Narrative Exam: General appearance: Pt in NAD, non verbal. Eyes: anicteric sclerae, moist conjunctivae; PERRLA HENT: Atraumatic; oropharynx limited +NGT Neck: Trachea midline; supple, no thyromegaly or lymphadenopathy Lungs: left crackles CV: S1,S2. Abdomen: Soft, + mass sensation Extremities: No peripheral edema or extremity lymphadenopathy Skin: Normal temperature, turgor and texture; no rash, ulcers or subcutaneous nodules Psych: non verbal Neuro: non verbal. Left sided weakness - Constitutional Vitals: Vital Signs Temp Pulse Resp BP Pulse Ox 100.5 F H 102 H 16 138/59 96 01/17/18 07:34 01/17/18 08:52 01/17/18 08:52 01/17/18 07:34 01/17/18 07:34 Temperature -Last 24 Hours Temperature 100.5 F Temperature 99.0 F Temperature 99.1 F Temperature 99.6 F Temperature 100.4 F - Labs CBC & Chem 7: 01/16/18 06:02 01/16/18 06:02 Labs: Abnormal lab results 01/16/18 01/17/18 Range/Units 16:57 01:22 POC Glucose 197 H 203 H (70-105)
--- NOTE | 2018-01-17 12:14 | Progress Note ---
Assessment and Plan Acute CVA Dilated Ischemic cardiomyopathy, LVEF 30-35% Anemia s/p blood transfusion Sepsis Dementia DNR status Recommendations: Continue medical therapy for coronary disease and ischemic cardiomyopathy as tolerated. Otherwise, conservative cardiac management. Subjective Date of service: 01/17/18 Principal diagnosis: sepsis Interval history: Patient is nonverbal. No cardiac events reported. Objective Vital Signs Temp Pulse Pulse Resp Resp BP Pulse Ox 01/17/18 08:52 102 H 16 01/17/18 08:42 108 H 16 01/17/18 07:34 100.5 F H 85 20 138/59 96 01/17/18 05:38 106 H 01/17/18 05:34 99.0 F 105 H 20 131/54 95 01/17/18 01:05 99.1 F 94 H 22 127/63 96 01/16/18 20:23 99.6 F 115 H 20 112/51 97 01/16/18 20:00 113 H 01/16/18 16:45 100.4 F H 111 H 24 124/57 98 01/16/18 14:45 112 H 18 01/16/18 14:40 110 H 18 - Physical Examination General: No Apparent Distress, Cachectic Cardiac: Positive: Reg Rate and Rhythm
--- NOTE | 2018-01-17 13:47 | Progress Note ---
Assessment and Plan 87 year old female with large right MCA stroke. Still obtunded with left dense hemiparesis and gaze deviation. Hypertension and dilated cardiomyopathy on echo. Feeding tube in place. Breathing on her own but tachypneic. Plan - Continue conservative care. PT, up in chair. Repeat CT brain. Subjective Date of service: 01/17/18 Principal diagnosis: Acute rt. MCA infarct., ischemic cardiomyopathy, renal mass. Interval history: 87 year old female presented from care home on 01/13/18 with several day history of left sided weakness and unresponsiveness. Found to have large right MCA distribution infarct on CT/MRI. Also found to have ischemic cardiomyopathy with EF of 30 to 35 % and a renal mass, performed as part of fever work-up, noted on abdominal CT. Today the patient is still obtunded, dobhoff feeding tube in place. Objective - Exam Narrative Exam: HEENT - pupils perrl. Eyes deviated to the right no inflamation. Chest - clear to auscultation. Heart - reg. rate, nl S-1, S-2 Abdomen - soft, nontender. Extremities - no CCE Neurological - Eyes closed, does open them spontaneously. No verbalization. Does not follow commands. CN's - dense right gaze deviation. left facial droop. Motor - left arm flaccid. occasional movement of left lower extremity Reflexes - slightly more brisk on left. no clonus or babinski Sensory - difficult to assess. appreciates pain. Cerebellar - unable to assess. - Vital Sign Vital Signs - 12hr 01/17/18 01/17/18 01/17/18 05:34 05:38 07:34 Temperature 99.0 F 100.5 F H Pulse Rate 105 H 106 H 85 Pulse Rate [ Anterior Bilateral Throughout] Respiratory 20 20 Rate Respiratory Rate [Anterior Bilateral Throughout] Blood Pressure 131/54 138/59 O2 Sat by Pulse 95 96 Oximetry 01/17/18 01/17/18 01/17/18 08:42 08:52 12:06 Temperature 100.0 F H Pulse Rate 101 H Pulse Rate [ 108 H 102 H Anterior Bilateral Throughout] Respiratory 16 Rate Respiratory 16 16 Rate [Anterior Bilateral Throughout] Blood Pressure 129/70 O2 Sat by Pulse 97 Oximetry - Laboratory Findings CBC and BMP: 01/16/18 06:02 01/16/18 06:02 Abnormal Lab Findings: Abnormal Labs 01/13/18 01/13/18 01/13/18 18:24 18:24 23:05 WBC 12.0 H RBC 3.06 L Hgb 7.7 L Hct 25.4 L MCH 25 L RDW 18.7 H Plt Count Lymph % (Auto) 4.9 L Lymph # 0.6 L Seg Neutrophils % 89.7 H Seg Neutrophils # 10.7 H Sodium 147 H Chloride 111.0 H Carbon Dioxide 19 L BUN 25 H Creatinine 1.4 H Glucose 166 H POC Glucose 165 H Calcium 7.9 L Iron TIBC Transferrin Total Bilirubin Alkaline Phosphatase 525 H Troponin T 0.122 H* Total Protein Albumin 2.5 L HDL Cholesterol 36 L TSH Free T4 Urine WBC (Auto) Crossmatch 01/14/18 01/14/18 01/14/18 01:05 01:05 03:25 WBC RBC Hgb Hct MCH RDW Plt Count Lymph % (Auto) Lymph # Seg Neutrophils % Seg Neutrophils # Sodium Chloride Carbon Dioxide BUN Creatinine Glucose POC Glucose Calcium Iron 22 L TIBC 156 L Transferrin 123 L Total Bilirubin Alkaline Phosphatase Troponin T Total Protein Albumin HDL Cholesterol TSH Free T4 Urine WBC (Auto) 147.0 H Crossmatch See Detail 01/14/18 01/14/18 01/14/18 07:31 11:07 14:41 WBC RBC Hgb Hct MCH RDW Plt Count Lymph % (Auto) Lymph # Seg Neutrophils % Seg Neutrophils # Sodium Chloride Carbon Dioxide BUN Creatinine Glucose POC Glucose 220 H 199 H Calcium Iron TIBC Transferrin Total Bilirubin Alkaline Phosphatase Troponin T 0.176 H* D Total Protein Albumin HDL Cholesterol TSH Free T4 Urine WBC (Auto) Crossmatch 01/14/18 01/14/18 01/14/18 14:41 16:00 19:38 WBC RBC Hgb Hct MCH RDW Plt Count Lymph % (Auto) Lymph # Seg Neutrophils % Seg Neutrophils # Sodium Chloride Carbon Dioxide BUN Creatinine Glucose POC Glucose 170 H Calcium Iron TIBC Transferrin Total Bilirubin Alkaline Phosphatase Troponin T 0.161 H* Total Protein Albumin HDL Cholesterol TSH 0.232 L Free T4 1.63 H Urine WBC (Auto) Crossmatch 01/14/18 01/15/18 01/15/18 21:07 04:20 04:20 WBC 12.0 H RBC 3.28 L Hgb 8.7 L Hct 27.3 L MCH 27 L RDW 17.8 H Plt Count Lymph % (Auto) 5.0 L Lymph # 0.6 L Seg Neutrophils % 88.7 H Seg Neutrophils # 10.7 H Sodium 159 H D Chloride 124.3 H Carbon Dioxide 19 L BUN 19 H Creatinine Glucose 178 H POC Glucose 148 H Calcium 7.6 L Iron TIBC Transferrin Total Bilirubin 1.40 H Alkaline Phosphatase 410 H Troponin T Total Protein 5.7 L Albumin 2.4 L HDL Cholesterol TSH Free T4 Urine WBC (Auto) Crossmatch 01/15/18 01/15/18 01/15/18 06:52 07:52 12:40 WBC RBC Hgb Hct MCH RDW Plt Count Lymph % (Auto) Lymph # Seg Neutrophils % Seg Neutrophils # Sodium Chloride Carbon Dioxide BUN Creatinine Glucose POC Glucose 205 H 189 H 211 H Calcium Iron TIBC Transferrin Total Bilirubin Alkaline Phosphatase Troponin T Total Protein Albumin HDL Cholesterol TSH Free T4 Urine WBC (Auto) Crossmatch 01/15/18 01/15/18 01/16/18 15:42 22:38 01:42 WBC RBC Hgb Hct MCH RDW Plt Count Lymph % (Auto) Lymph # Seg Neutrophils % Seg Neutrophils # Sodium Chloride Carbon Dioxide BUN Creatinine Glucose POC Glucose 193 H 186 H 204 H Calcium Iron TIBC Transferrin Total Bilirubin Alkaline Phosphatase Troponin T Total Protein Albumin HDL Cholesterol TSH Free T4 Urine WBC (Auto) Crossmatch 01/16/18 01/16/18 01/16/18 06:02 06:02 16:57 WBC RBC 3.16 L Hgb 8.4 L Hct 26.6 L MCH 27 L RDW 19.0 H Plt Count 104 L Lymph % (Auto) Lymph # Seg Neutrophils % Seg Neutrophils # Sodium 159 H Chloride 123.6 H Carbon Dioxide 19 L BUN 24 H Creatinine Glucose 207 H POC Glucose 197 H Calcium 7.6 L Iron TIBC Transferrin Total Bilirubin Alkaline Phosphatase Troponin T Total Protein Albumin HDL Cholesterol TSH Free T4 Urine WBC (Auto) Crossmatch 01/17/18 01:22 WBC RBC Hgb Hct MCH RDW Plt Count Lymph % (Auto) Lymph # Seg Neutrophils % Seg Neutrophils # Sodium Chloride Carbon Dioxide BUN Creatinine Glucose POC Glucose 203 H Calcium Iron TIBC Transferrin Total Bilirubin Alkaline Phosphatase Troponin T Total Protein Albumin HDL Cholesterol TSH Free T4 Urine WBC (Auto) Crossmatch
--- NOTE | 2018-01-17 14:17 | Progress Note ---
Assessment and Plan - Patient Problems (1) CVA (cerebral vascular accident) Current Visit: Yes Status: Acute Qualifiers: Precerebral and cerebral artery: middle cerebral artery Plan to address problem: Patient with large right middle cerebral artery CVA. Remains obtunded although some improvement. Overall prognosis remains extremely poor. Rehabilitation potential is also extremely poor. Continue limited anticoagulation. This stab did not want to be too aggressive secondary to risk of bleed and thoracic extension. Prognosis remains grave. Family also would like not to be overly aggressive. Patient is DO NOT RESUSCITATE. Plan for PEG tube. We'll consult GI. She still has such poor quality of life. (2) Ischemic dilated cardiomyopathy Current Visit: Yes Status: Acute (3) Renal mass Current Visit: Yes Status: Acute Plan to address problem: Patient did have some hydronephrosis. Was scheduled to inform urology. Not sure how much they will be able to do. Spoke with daughter is not willing to have any invasive procedures at this time. (4) NSTEMI (non-ST elevated myocardial infarction) Current Visit: Yes Status: Acute (5) Dementia Current Visit: Yes Status: Acute Plan to address problem: Unsure of patient's dementia has progressed given CVA and recent cardiac event. History Interval history: Today patient is a little less obtunded than yesterday. Did open eyes via sternal rub. All questions and concerns about eldest daughter answered at bedside to her satisfaction. Family decided to proceed with feeding tube. Hospitalist Physical - Constitutional Vitals: Temp Pulse Resp BP Pulse Ox 100.0 F H 101 H 16 129/70 97 01/17/18 12:06 01/17/18 12:06 01/17/18 12:06 01/17/18 12:06 01/17/18 12:06 General appearance: Present: no acute distress - EENT Eyes: Present: EOM intact. Absent: irregular pupil, scleral icterus, conjunctival injection, exopthalmos, miosis ENT: hearing decreased, poor dentition, no oropharyngeal erythema, no thrush, no ulcerations - Neck Neck: Present: supple, normal ROM. Absent: rigidity, enlarged thyroid, masses or JVD, cervical LAD - Respiratory Respiratory: bilateral: rhonchi (few rhonchi especially at bases. No clear evidence of aspiration.) - Cardiovascular Rhythm: regular Heart Sounds: Present: S1 & S2, systolic murmur - Extremities Extremities: no ischemia, pulses intact, pulses symmetrical Extremity abnormal: other (dense hemiparesis) Peripheral Pulses: within normal limits - Abdominal General gastrointestinal: soft, non-tender, distended, hypoactive bowel sounds, mass, no hepatomegaly, no splenomegaly - Integumentary Integumentary: Present: clear, warm, dry, normal turgor. Absent: jaundice, rash , clammy, pale - Neurologic Neurologic: other (obtunded encephalopathic although a little improved since yesterday not sure how significant this would be integrated pictured.) Results - Labs CBC & Chem 7: 01/16/18 06:02 01/16/18 06:02 Labs: Laboratory Last Values WBC 10.8 K/mm3 (4.5-11.0) 01/16/18 06:02 RBC 3.16 M/mm3 (3.65-5.03) L 01/16/18 06:02 Hgb 8.4 gm/dl (10.1-14.3) L 01/16/18 06:02 Hct 26.6 % (30.3-42.9) L 01/16/18 06:02 MCV 84 fl (79-97) 01/16/18 06:02 MCH 27 pg (28-32) L 01/16/18 06:02 MCHC 32 % (30-34) 01/16/18 06:02 RDW 19.0 % (13.2-15.2) H 01/16/18 06:02 Plt Count 104 K/mm3 (140-440) L 01/16/18 06:02 Lymph % (Auto) 5.0 % (13.4-35.0) L 01/15/18 04:20 [place] % (Auto) 5.5 % (0.0-7.3) 01/15/18 04:20 Eos % (Auto) 0.3 % (0.0-4.3) 01/15/18 04:20 Baso % (Auto) 0.5 % (0.0-1.8) 01/15/18 04:20 Lymph # 0.6 K/mm3 (1.2-5.4) L 01/15/18 04:20 Creek # 0.7 K/mm3 (0.0-0.8) 01/15/18 04:20 Eos # 0.0 K/mm3 (0.0-0.4) 01/15/18 04:20 Baso # 0.1 K/mm3 (0.0-0.1) 01/15/18 04:20 Seg Neutrophils % 88.7 % (40.0-70.0) H 01/15/18 04:20 Seg Neutrophils # 10.7 K/mm3 (1.8-7.7) H 01/15/18 04:20 Sodium 159 mmol/L (137-145) H 01/16/18 06:02 Potassium 3.6 mmol/L (3.6-5.0) 01/16/18 06:02 Chloride 123.6 mmol/L (98-107) H 01/16/18 06:02 Carbon Dioxide 19 mmol/L (22-30) L 01/16/18 06:02 Anion Gap 20 mmol/L 01/16/18 06:02 BUN 24 mg/dL (7-17) H 01/16/18 06:02 Creatinine 1.2 mg/dL (0.7-1.2) 01/16/18 06:02 Estimated GFR 51 ml/min 01/16/18 06:02 BUN/Creatinine Ratio 20 % 01/16/18 06:02 Glucose 207 mg/dL (65-100) H 01/16/18 06:02 POC Glucose 203 (70-105) H 01/17/18 01:22 Calcium 7.6 mg/dL (8.4-10.2) L 01/16/18 06:02 Iron 22 ug/dL (37-170) L 01/14/18 01:05 TIBC 156 mcg/dL (250-450) L 01/14/18 01:05 % Saturation 14.10 % 01/14/18 01:05 Transferrin 123 mg/dl (192-382) L 01/14/18 01:05 Ferritin 280.3 ng/mL (13.0-400.0) 01/14/18 01:05 Total Bilirubin 1.40 mg/dL (0.1-1.2) H 01/15/18 04:20 AST 20 units/L (5-40) 01/15/18 04:20 ALT 11 units/L (7-56) 01/15/18 04:20 Alkaline Phosphatase 410 units/L (35-129) H 01/15/18 04:20 Total Creatine Kinase 43 units/L (30-135) 01/14/18 19:38 CK-MB (CK-2) 1.1 ng/mL (0.0-4.0) 01/14/18 19:38 CK-MB (CK-2) Rel Index 2.5 (0-4) 01/14/18 19:38 Troponin T 0.161 ng/mL (0.00-0.029) H* 01/14/18 19:38 Total Protein 5.7 g/dL (6.3-8.2) L 01/15/18 04:20 Albumin 2.4 g/dL (3.9-5) L 01/15/18 04:20 Albumin/Globulin Ratio 0.7 % 01/15/18 04:20 Triglycerides 88 mg/dL (2-149) 01/13/18 18:24 Cholesterol 181 mg/dL (50-199) 01/13/18 18:24 LDL Cholesterol Direct 128 mg/dL (50-130) 01/13/18 18:24 HDL Cholesterol 36 mg/dL (40-59) L 01/13/18 18:24 Cholesterol/HDL Ratio 5.02 % 01/13/18 18:24 Vitamin B12 871.1 pg/mL (211-911) 01/14/18 01:05 Folate 8.58 ng/mL (7.3-26.0) 01/14/18 01:05 TSH 0.232 mlU/mL (0.270-4.200) L 01/14/18 14:41 Free T4 1.63 ng/dL (0.76-1.46) H 01/14/18 14:41 Urine Color Yellow (Yellow) 01/14/18 03:25 Urine Turbidity Clear (Clear) 01/14/18 03:25 Urine pH 6.0 (5.0-7.0) 01/14/18 03:25 Ur Specific Olar 1.006 (1.003-1.030) 01/14/18 03:25 Urine Protein <15 mg/dl mg/dL (Negative) 01/14/18 03:25 Urine Glucose (UA) Neg mg/dL (Negative) 01/14/18 03:25 Urine Ketones Neg mg/dL (Negative) 01/14/18 03:25 Urine Blood Sm (Negative) 01/14/18 03:25 Urine Nitrite Neg (Negative) 01/14/18 03:25 Urine Bilirubin Neg (Negative) 01/14/18 03:25 Urine Urobilinogen < 2.0 mg/dL (<2.0) 01/14/18 03:25 Ur Leukocyte Esterase Lg (Negative) 01/14/18 03:25 Urine WBC (Auto) 147.0 /HPF (0.0-6.0) H 01/14/18 03:25 Urine RBC (Auto) 4.0 /HPF (0.0-6.0) 01/14/18 03:25 Urine Bacteria (Auto) 1+ /HPF (Negative) 01/14/18 03:25 Urine WBC Clumps 2+ /HPF 01/14/18 03:25 Amorphous Crystals Few 01/14/18 03:25 Blood Type O POSITIVE 01/14/18 01:05 Antibody Screen Negative 01/14/18 01:05 Crossmatch See Detail 01/14/18 01:05
[2018-01-17] MEDS: D5/0.45NS 1,000 ML IV SCH (17:08)
[2018-01-18] MEDS: LOPRESSOR PO SCH ×4 (02:23→18:18)
[2018-01-18] MEDS: NITRO DUR TD SCH (06:13)
[2018-01-18] MEDS: ZOSYN/NS 2.25 GM/50ML 2.25 GM/50 ML BAG IV SCH ×2 (06:14→18:22)
[2018-01-18] MEDS: D5/0.45NS 1,000 ML IV SCH (06:14)
[2018-01-18 06:36] LABS: Basophils % (Auto) 0.3 % (0.0-1.8); Eosinophils # (Auto) 0.1 K/mm3 (0.0-0.4); Eosinophils % (Auto) 0.7 % (0.0-4.3); Hematocrit 27.3 % (30.3-42.9); Hemoglobin 8.4 gm/dl (10.1-14.3); Lymphocytes # (Auto) 0.7 K/mm3 (1.2-5.4); Lymphocytes % (Auto) 7.9 % (13.4-35.0); Mean Corpuscular HGB Conc 31 % (30-34); Mean Corpuscular Hemoglobin 26 pg (28-32); Mean Corpuscular Volume 85 fl (79-97); Monocytes # (Auto) 0.3 K/mm3 (0.0-0.8); Monocytes % (Auto) 3.2 % (0.0-7.3); Red Blood Count 3.22 M/mm3 (3.65-5.03)
[2018-01-18 06:41] LABS: Platelet Count 85 K/mm3 (140-440); Red Cell Distribution Width 20.4 % (13.2-15.2)
[2018-01-18 06:45] LABS: BUN/Creatinine Ratio 23; Blood Urea Nitrogen 23 mg/dL (7-17); Calcium 7.9 mg/dL (8.4-10.2); Hemolysis Index 10
[2018-01-18] MEDS ORDERED: SODIUM BICARBONATE FEEDTUBE PRN (07:17)
[2018-01-18] MEDS ORDERED: SIMPLE SYRUP FEEDTUBE PRN ×2 (07:17)
[2018-01-18] MEDS ORDERED: PANCREAZE DR 10,500 UNIT FEEDTUBE PRN (07:17)
[2018-01-18] MEDS ORDERED: D5NS 0.2% 1,000 ML IV SCH (08:00)
--- NOTE | 2018-01-18 08:43 | Consultation ---
History of Present Illness - Reason for Consult Consult date: 01/18/18 acute renal failure, hypernatremia, metabolic acidosis - History of Present Illness The patient is a 87 YO AAF with history significant for Hypertension, DM type 2 , CVA, Dementia and [facility] resident who was sent to the ER for evaluation of change in the mental status. Unable to obtain any history from patient at this time. She was noted to have aphasia and unable to use left side of the body. MRI of the brain showed right MCA territory infarct. Her creatinine on admission was 1.4 and has improved to 1. Her Sodium level remains high. Past History Past Medical History: hypertension, stroke Past Surgical History: Other (unknown) Social history: no significant social history, . denies: smoking, alcohol abuse Family history: no significant family history, cancer (father of cancer, mother with ETOH complications. ) Medications and Allergies Allergies Allergy/AdvReac Type Severity Reaction Status Date / Time No Known Allergies Allergy Verified 01/14/18 01:11 Home Medications Medication Instructions Recorded Confirmed Last Taken Type Acetaminophen 650 mg PO Q6H PRN 01/13/18 01/13/18 Unknown History Acetaminophen [Tylenol Arthritis] 650 mg PO BID PRN 01/13/18 01/13/18 Unknown History Amoxicillin/Potassium Clav 1 each PO BID 01/13/18 01/13/18 Unknown History [Augmentin 875-125 Tablet] Aspirin 81 mg PO QDAY 01/13/18 01/13/18 Unknown History Cholecalciferol Vit D3 [Vitamin D3] 1,000 unit PO QDAY 01/13/18 01/13/18 Unknown History Docusate Sodium [Colace] 100 mg PO BID PRN 01/13/18 01/13/18 Unknown History Ferrous Sulfate [Feosol] 325 mg PO BID 01/13/18 01/13/18 Unknown History Glucagon,Human Recombinant 1 mg IJ Q15MIN PRN 01/13/18 01/13/18 Unknown History [Glucagon Emergency Kit] Insulin Lispro [Humalog] See Protocol SQ BID 01/13/18 01/13/18 Unknown History Levofloxacin [Levaquin TAB] 500 mg PO QDAY 01/13/18 01/13/18 Unknown History Melatonin 5 mg PO QHS 01/13/18 01/13/18 Unknown History Multivitamin [Multiple Vitamins] 1 each PO QDAY 01/13/18 01/13/18 Unknown History Omeprazole 20 mg PO QDAY 01/13/18 01/13/18 Unknown History cefTRIAXone [Rocephin] 1 gm IM Q24HR 01/13/18 01/13/18 Unknown History Active Meds: Active Medications Acetaminophen (Tylenol) 650 mg PO Q4H PRN PRN Reason: Pain, Mild (1-3) Last Admin: 01/16/18 17:18 Dose: 650 mg Acetaminophen (Tylenol) 650 mg VA Q4H PRN PRN Reason: Pain MILD(1-3)/Fever >100.5/[place] Last Admin: 01/16/18 00:55 Dose: 650 mg Albuterol (Proventil) 2.5 mg IH Q4HRT PRN PRN Reason: Shortness Of Breath Albuterol/Ipratropium (Duoneb *Not For Prn Use*) 1 ampul IH TIDRT [facility] Last Admin: 01/17/18 20:05 Dose: 1 ampul Lipase/Protease/Amylase (Rudolph Kincaid 10,500 Unit) 1 each FEEDTUBE PRN PRN PRN Reason: For Clogged Feeding Tube Aspirin (Baby Aspirin) 81 mg PO QDAY [facility] Last Admin: 01/17/18 10:23 Dose: 81 mg Atorvastatin Calcium (Lipitor) 10 mg PO QHS [facility] Last Admin: 01/17/18 23:25 Dose: 10 mg Bisacodyl (Dulcolax) 10 mg VA QDAY PRN PRN Reason: Constipation unrelieved by MOM Dextrose (D50w (25gm) Syringe) 50 ml IV PRN PRN PRN Reason: Hypoglycemia Famotidine (Pepcid) 20 mg PO DAILY [facility] Hydralazine HCl (Apresoline) 10 mg IV Q6H PRN PRN Reason: Keep SBP between 160-185 mm Hg Piperacillin Sod/Tazobactam Sod (Zosyn/Ns 2.25 Gm/50ml) 2.25 gm in 50 mls @ 100 mls/hr IV Q6HR KASSANDRA PRN Reason: Protocol Last Admin: 01/18/18 06:14 Dose: 100 mls/hr Dextrose/Sodium Chloride (D5ns 0.2%) 1,000 mls @ 75 mls/hr IV DIRECT [facility] Lisinopril (Zestril) 2.5 mg PO QDAY [facility] Last Admin: 01/17/18 10:22 Dose: 2.5 mg Metoprolol Tartrate (Lopressor) 25 mg PO Q6H [facility] Last Admin: 01/18/18 06:14 Dose: 25 mg Morphine Sulfate (Morphine) 2 mg IV Q4H PRN PRN Reason: Pain, Moderate (4-6) Nitroglycerin (Nitro Dur) 0.4 mg TD QDAY@0600 [facility] Last Admin: 01/18/18 06:13 Dose: 0.4 mg Ondansetron HCl (Zofran) 4 mg IV Q8H PRN PRN Reason: N/V unrelieved by Reglan Promethazine HCl (Phenergan) 25 mg VA Q6H PRN PRN Reason: Nausea And Vomiting Simple Syrup (Simple Syrup) 15 ml FEEDTUBE PRN PRN PRN Reason: Hypoglycemia Simple Syrup (Simple Syrup) 30 ml FEEDTUBE PRN PRN PRN Reason: Hypoglycemia Sodium Bicarbonate (Sodium Bicarbonate) 325 mg FEEDTUBE PRN PRN PRN Reason: For Clogged Feeding Tube Sodium Chloride (Sodium Chloride Flush Syringe 10 Ml) 10 ml IV PRN PRN PRN Reason: LINE FLUSH Review of Systems ROS unobtainable: due to mental status Exam - Vital Signs Vital signs: Vital Signs Pulse Resp BP Pulse Ox 120 H 32 H 188/90 96 01/13/18 16:11 01/13/18 16:11 01/13/18 16:11 01/13/18 16:11 - General Appearance General appearance: well-developed, appears stated age, other (on mittens, stuporus, NG feeding tube noted) EENT: ATNC Neck: Present: neck supple, trachea midline Respiratory: Clear to Ascultation Heart: regular, S1S2, no murmurs Gastrointestinal: Present: normoactive bowel sounds. Absent: tenderness, distended Integumentary: no rash, warm and dry Neurologic: aphasic, other (not following any command) Musculoskeletal: Present: other (no edema) Results - Lab Results 01/18/18 05:35 01/18/18 05:35 Most recent lab results Calcium 7.9 mg/dL (8.4-10.2) L 01/18/18 05:35 - Image Kidney/bladder ultrasound: other Assessment and Plan 1. Hypernatremia: Increase water flushes. Chage IV fluids to D5W. Monitor sodium level. 2. Acute kidney injury: Renal function is better. Likely mild CKD. 3. Hypokalemia: Replete K. 4. Metabolic acidosis. 5. Bilateral hydronephrosis: Evaluated by Urologist. 6. Acute MCA territory CVA: Followed by Neuro. 7. Left kidney mass.
[2018-01-18] MEDS ORDERED: POTASSIUM CHLORIDE FEEDTUBE ONE (08:50)
[2018-01-18] MEDS: BABY ASPIRIN PO SCH (09:23)
[2018-01-18] MEDS: ZESTRIL PO SCH (09:23)
[2018-01-18] MEDS: MORPHINE IV PRN ×3 (09:23→18:16)
[2018-01-18] MEDS: PEPCID PO SCH (09:23)
[2018-01-18] MEDS: DUONEB *Not for PRN Use IH SCH ×3 (09:43→21:19)
--- NOTE | 2018-01-18 10:23 | Progress Note ---
Assessment and Plan Acute CVA Dilated Ischemic cardiomyopathy, LVEF 30-35% Anemia s/p blood transfusion Sepsis Dementia DNR status Recommendations: Continue medical therapy for coronary disease and ischemic cardiomyopathy as tolerated. Otherwise, conservative cardiac management. Subjective Date of service: 01/18/18 Principal diagnosis: Acute rt. MCA infarct., ischemic cardiomyopathy, renal mass. Interval history: Patient is nonverbal. No cardiac events reported. Objective Vital Signs Temp Pulse Pulse Pulse Resp Resp Resp 01/18/18 09:23 80 01/18/18 08:00 78 80 16 18 01/18/18 07:41 98.9 F 75 20 01/18/18 04:00 100 H 01/18/18 03:37 98.2 F 01/18/18 03:32 85 18 01/18/18 00:40 97.2 F L 88 20 01/17/18 20:17 88 16 01/17/18 20:14 98.5 F 96 H 20 01/17/18 20:05 84 16 01/17/18 16:45 101.4 F H 106 H 16 01/17/18 15:22 89 16 01/17/18 12:06 100.0 F H 101 H 16 BP BP Pulse Ox 01/18/18 09:23 01/18/18 08:00 01/18/18 07:41 133/58 100 01/18/18 04:00 01/18/18 03:37 01/18/18 03:32 124/55 100 01/18/18 00:40 129/65 100 01/17/18 20:17 01/17/18 20:14 113/63 100 01/17/18 20:05 01/17/18 16:45 123/63 98 01/17/18 15:22 01/17/18 12:06 129/70 97 - Physical Examination General: No Apparent Distress, Cachectic HEENT: Positive: PERRL Cardiac: Positive: Reg Rate and Rhythm - Labs and Meds CBC 01/18/18 Range/Units 05:35 WBC 9.5 (4.5-11.0) K/mm3 RBC 3.22 L (3.65-5.03) M/mm3 Hgb 8.4 L (10.1-14.3) gm/dl Hct 27.3 L (30.3-42.9) % Plt Count 85 L (140-440) K/mm3 Lymph # 0.7 L (1.2-5.4) K/mm3 [place] # 0.3 (0.0-0.8) K/mm3 Eos # 0.1 (0.0-0.4) K/mm3 Baso # 0.0 (0.0-0.1) K/mm3 Comprehensive Metabolic Panel 01/18/18 Range/Units 05:35 Sodium 161 H* (137-145) mmol/L Potassium 3.7 (3.6-5.0) mmol/L Chloride 128.0 H (98-107) mmol/L Carbon Dioxide 19 L (22-30) mmol/L BUN 23 H (7-17) mg/dL Creatinine 1.0 (0.7-1.2) mg/dL Glucose 309 H (65-100) mg/dL Calcium 7.9 L (8.4-10.2) mg/dL
[2018-01-18] MEDS: D5W 1,000 ML IV SCH (10:38)
--- NOTE | 2018-01-18 12:12 | Progress Note ---
Assessment and Plan Assessment: 1) Sepsis: Leukocytosis is resolved. Fever yesterday. Etiology most likely UTI + /- Kidney mass. 2) Complicated UTI: -urine cx negative. -CT showed irregular large cystic mass on left kidney inflammatory vs malignancy?, bilateral hydro and dilated collecting system, markedly dilated bladder, dilated CBD and distended GB with stones. Biliary scan no cholecystitis. 3) Acute right MCA infarct. 4) Dysphagia due to 3). 4) Thrombocytopenia. Worsening. Could be due to zosyn. Plan: -Will follow-up blood cultures. -Stop zosyn (D5). -Start ceftriaxone. -Monitor temperature. -Family considering G tube placement. -d/w pt's daughters bedside. Preethi Long MD [facility] M [phone] Subjective Date of service: 01/18/18 Principal diagnosis: Acute rt. MCA infarct., ischemic cardiomyopathy, renal mass. Interval history: Fever of 101.4 yesterday. No fever so far today. No diarrhea. Microbiology: Blood cultures: 01/14 ngtd 01/17 pending Urine cultures: 01/14 neg Current Antimicrobials: Zosyn 01/14- Previous Antimicrobials: Vancomycin Azithro Objective - Exam Narrative Exam: General appearance: Pt in NAD, non verbal. Eyes: anicteric sclerae, moist conjunctivae; PERRLA HENT: Atraumatic; oropharynx limited +NGT Neck: Trachea midline; supple. Lungs: Decreased at bases. CV: S1,S2. Abdomen: Soft, + mass sensation Extremities: No peripheral edema or extremity lymphadenopathy Skin: Normal temperature, turgor and texture; no rash, ulcers or subcutaneous nodules Psych: non verbal Neuro: non verbal. Left sided weakness - Constitutional Vitals: Vital Signs Temp Pulse Resp BP Pulse Ox 98.9 F 80 16 133/58 100 01/18/18 07:41 01/18/18 09:23 01/18/18 08:00 01/18/18 07:41 01/18/18 07:41 Temperature -Last 24 Hours Temperature 98.9 F Temperature 98.2 F Temperature 97.2 F Temperature 98.5 F Temperature 101.4 F - Labs CBC & Chem 7: 01/18/18 05:35 01/18/18 05:35 Labs: Abnormal lab results 01/17/18 01/17/18 01/18/18 Range/Units 12:13 18:41 02:01 RBC (3.65-5.03) M/mm3 Hgb (10.1-14.3) gm/dl Hct (30.3-42.9) % MCH (28-32) pg RDW (13.2-15.2) % Plt Count (140-440) K/mm3 Lymph % (Auto) (13.4-35.0) % Lymph # (1.2-5.4) K/mm3 Seg Neutrophils % (40.0-70.0) % Seg Neutrophils # (1.8-7.7) K/mm3 Sodium (137-145) mmol/L Chloride (98-107) mmol/L Carbon Dioxide (22-30) mmol/L BUN (7-17) mg/dL Glucose (65-100) mg/dL POC Glucose 200 H 224 H 299 H (70-105) Calcium (8.4-10.2) mg/dL 01/18/18 01/18/18 Range/Units 05:35 05:35 RBC 3.22 L (3.65-5.03) M/mm3 Hgb 8.4 L (10.1-14.3) gm/dl Hct 27.3 L (30.3-42.9) % MCH 26 L (28-32) pg RDW 20.4 H (13.2-15.2) % Plt Count 85 L (140-440) K/mm3 Lymph % (Auto) 7.9 L (13.4-35.0) % Lymph # 0.7 L (1.2-5.4) K/mm3 Seg Neutrophils % 87.9 H (40.0-70.0) % Seg Neutrophils # 8.3 H (1.8-7.7) K/mm3 Sodium 161 H* (137-145) mmol/L Chloride 128.0 H (98-107) mmol/L Carbon Dioxide 19 L (22-30) mmol/L BUN 23 H (7-17) mg/dL Glucose 309 H (65-100) mg/dL POC Glucose (70-105) Calcium 7.9 L (8.4-10.2) mg/dL
[2018-01-18] MEDS ORDERED: ROCEPHIN/NS 1 GM/50 ML 1 GM/50 ML BAG IV SCH (13:00)
--- NOTE | 2018-01-18 14:24 | Progress Note ---
Assessment and Plan Acute right MCA ischemic infarct / CVA Anemia -likely chronic Complicated UTI, cx negtive Failure to Thrive Hydronephrosis with left renal mass Acute kidney injury - likeld due to volume depletion hypovolemia, patient was on HCTZ at home Aphasia and dense left hemiplegia - due to acute CVA Elevated troponin - likely due to acute renal failure. EKG negative Ischemic cardiomyopathy with EF 30-35% hypernatremia, likely dehydration Leukocytosis , Afebrile since 01/17/18. Etiology most likely UTI +/- Kidney mass. - Continue supportive care - cont hypotonic fluid, nephrology consulted - Continue ceftriaxone through 01/23/18. - Anticoagulation held due to large CVA concern for conversion to hemorrhagic str - Obtained swallow evaluation would need a PEG and family agreeable to this. - Hold NSAIDs and other nephrotoxins. Renally dose all medications - Strict I's and O's, monitor volume status and electrolytes - Monitor CBC and electrolytes - Discussed with family patient remains DO NOT RESUSCITATE - Very poor prognosis Brief history: The patient is a 87 YO AAF with history significant for Hypertension, DM type 2 , CVA, Dementia and [facility] resident who was sent to the ER for evaluation of change in the mental status. She was noted to have aphasia and unable to use left side of the body. MRI of the brain showed right MCA territory infarct. Radiological data: CT abdomen/pelvis showed irregular large cystic mass on left kidney inflammatory vs malignancy?, bilateral hydro and dilated collecting system, markedly dilated bladder, dilated CBD and distended GB with stones. Biliary can no cholecystitis. MRI brain - acute right MCA CVA HIDA scan - no sign of cholecystitis Physical exam: General appearance: Pt in NAD, non verbal. Eyes: anicteric sclerae, moist conjunctivae; PERRLA HENT: Atraumatic; oropharynx limited +NGT Neck: Trachea midline; supple, no thyromegaly or lymphadenopathy Lungs: left crackles CV: S1,S2. Abdomen: Soft, + mass sensation Extremities: No peripheral edema or extremity lymphadenopathy Skin: Normal temperature, turgor and texture; no rash, ulcers or subcutaneous nodules Psych: non verbal Neuro: non verbal. Left sided weakness Subjective Date of service: 01/18/18 Principal diagnosis: Acute rt. MCA infarct., ischemic cardiomyopathy, renal mass. Interval history: Patient is seen today for: CVA, Seen and examined at bedside; 24hour events reviewed; nursing staff ; no adverse overnight events reported Objective - Constitutional Vitals: Vital Signs - 12hr 01/18/18 01/18/18 01/18/18 03:32 03:37 04:00 Temperature 98.2 F Pulse Rate 85 100 H Pulse Rate [ Anterior Bilateral Throughout] Pulse Rate [ Throughout] Respiratory 18 Rate Respiratory Rate [Anterior Bilateral Throughout] Respiratory Rate [ Throughout] Blood Pressure 124/55 Blood Pressure [Left] O2 Sat by Pulse 100 Oximetry 01/18/18 01/18/18 01/18/18 07:41 08:00 09:23 Temperature 98.9 F Pulse Rate 75 80 Pulse Rate [ 78 Anterior Bilateral Throughout] Pulse Rate [ 80 Throughout] Respiratory 20 Rate Respiratory 16 Rate [Anterior Bilateral Throughout] Respiratory 18 Rate [ Throughout] Blood Pressure 133/58 Blood Pressure [Left] O2 Sat by Pulse 100 Oximetry 01/18/18 12:21 Temperature 98.7 F Pulse Rate 96 H Pulse Rate [ Anterior Bilateral Throughout] Pulse Rate [ Throughout] Respiratory 20 Rate Respiratory Rate [Anterior Bilateral Throughout] Respiratory Rate [ Throughout] Blood Pressure Blood Pressure 135/59 [Left] O2 Sat by Pulse 100 Oximetry - Labs CBC & Chem 7: 01/18/18 05:35 01/19/18 05:06 Labs: Abnormal lab results 01/17/18 01/17/18 01/18/18 Range/Units 12:13 18:41 02:01 RBC (3.65-5.03) M/mm3 Hgb (10.1-14.3) gm/dl Hct (30.3-42.9) % MCH (28-32) pg RDW (13.2-15.2) % Plt Count (140-440) K/mm3 Lymph % (Auto) (13.4-35.0) % Lymph # (1.2-5.4) K/mm3 Seg Neutrophils % (40.0-70.0) % Seg Neutrophils # (1.8-7.7) K/mm3 Sodium (137-145) mmol/L Chloride (98-107) mmol/L Carbon Dioxide (22-30) mmol/L BUN (7-17) mg/dL Glucose (65-100) mg/dL POC Glucose 200 H 224 H 299 H (70-105) Calcium (8.4-10.2) mg/dL 01/18/18 01/18/18 Range/Units 05:35 05:35 RBC 3.22 L (3.65-5.03) M/mm3 Hgb 8.4 L (10.1-14.3) gm/dl Hct 27.3 L (30.3-42.9) % MCH 26 L (28-32) pg RDW 20.4 H (13.2-15.2) % Plt Count 85 L (140-440) K/mm3 Lymph % (Auto) 7.9 L (13.4-35.0) % Lymph # 0.7 L (1.2-5.4) K/mm3 Seg Neutrophils % 87.9 H (40.0-70.0) % Seg Neutrophils # 8.3 H (1.8-7.7) K/mm3 Sodium 161 H* (137-145) mmol/L Chloride 128.0 H (98-107) mmol/L Carbon Dioxide 19 L (22-30) mmol/L BUN 23 H (7-17) mg/dL Glucose 309 H (65-100) mg/dL POC Glucose (70-105) Calcium 7.9 L (8.4-10.2) mg/dL
--- NOTE | 2018-01-18 15:02 | XRay Report ---
AP CHEST: HISTORY: Fever AP view of the chest demonstrates a normal mediastinal and cardiac contour with clear lungs and normal bony and soft tissue structures. IMPRESSION: No acute cardiopulmonary process identified.
[2018-01-18] MEDS: cefTRIAXone 1 GM in NACL 0.9% 20 ML IV SCH (15:24)
[2018-01-18 16:01] LABS: BUN/Creatinine Ratio 33; Blood Urea Nitrogen 20 mg/dL (7-17); Calcium 7.9 mg/dL (8.4-10.2); Hemolysis Index 10
[2018-01-18] MEDS ORDERED: NOVOLOG SUB-Q SCH (16:30)
[2018-01-18] MEDS: NOVOLOG SUB-Q SCH (18:17)
[2018-01-19] MEDS: NOVOLOG SUB-Q SCH ×4 (01:19→18:25)
[2018-01-19] MEDS: D5W 1,000 ML IV SCH ×2 (02:47→16:25)
[2018-01-19] MEDS: LOPRESSOR PO SCH ×3 (02:55→12:41)
[2018-01-19 06:20] LABS: BUN/Creatinine Ratio 32; Blood Urea Nitrogen 16 mg/dL (7-17); Hemolysis Index 90
[2018-01-19] MEDS: NITRO DUR TD SCH (06:50)
[2018-01-19] MEDS: DUONEB *Not for PRN Use IH SCH ×3 (08:35→20:13)
[2018-01-19] MEDS: BABY ASPIRIN PO SCH (09:15)
[2018-01-19] MEDS: ZESTRIL PO SCH (09:15)
[2018-01-19] MEDS: PEPCID PO SCH (09:15)
--- NOTE | 2018-01-19 09:32 | Progress Note ---
Assessment and Plan 1. Hypernatremia: Continue water flushes and IV D5W. Sodium level is improving. 2. Acute kidney injury: Renal function is better. 3. Electrolytes: Monitor and replete. 4. Metabolic acidosis. 5. Bilateral hydronephrosis: Evaluated by Urologist. 6. Acute MCA territory CVA: Followed by Neuro. 7. Left kidney mass. Subjective Date of service: 01/19/18 Principal diagnosis: Acute rt. MCA infarct., ischemic cardiomyopathy, renal mass. Interval history: Patient was seen and examined at the bedside. Objective - Vital Signs Vital signs: Vital Signs - 12hr 01/19/18 01/19/18 01/19/18 00:41 01:05 02:55 Temperature 98.8 F Pulse Rate 104 H 104 H Pulse Rate [ 90 Right Radial] Respiratory 22 20 Rate Blood Pressure 115/51 115/51 O2 Sat by Pulse 99 Oximetry 01/19/18 01/19/18 01/19/18 05:11 06:50 07:41 Temperature 99.2 F 98.5 F Pulse Rate 85 85 93 H Pulse Rate [ Right Radial] Respiratory 20 22 Rate Blood Pressure 137/56 137/56 151/76 O2 Sat by Pulse 100 100 Oximetry 01/19/18 09:15 Temperature Pulse Rate 93 H Pulse Rate [ Right Radial] Respiratory Rate Blood Pressure 151/76 O2 Sat by Pulse Oximetry - General Appearance General appearance: well-developed, other (no distress) EENT: ATNC Neck: supple Respiratory: Present: Clear to Ascultation Cardiology: regular, S1S2, no murmurs Gastrointestinal: normoactive bowel sounds, no tenderness Integumentary: no rash Neurologic: aphasia, other (righ sided gaze) Musculoskeletal: other (no edema) - Lab 01/18/18 05:35 01/19/18 05:06 Most recent lab results Calcium 8.0 mg/dL (8.4-10.2) L 01/19/18 05:06 Phosphorus 2.20 mg/dL (2.5-4.5) L 01/19/18 05:06 Magnesium 2.00 mg/dL (1.7-2.3) 01/19/18 05:06
--- NOTE | 2018-01-19 12:32 | Progress Note ---
Assessment and Plan Assessment: 1) Sepsis: Leukocytosis is resolved. Afebrile since 01/17/18. Etiology most likely UTI +/- Kidney mass. 2) Complicated UTI: -Urine cx negative. -CT showed irregular large cystic mass on left kidney inflammatory vs malignancy?, bilateral hydro and dilated collecting system, markedly dilated bladder, dilated CBD and distended GB with stones. Biliary scan no cholecystitis. 3) Acute right MCA infarct. 4) Dysphagia due to 3). 5) Thrombocytopenia. Could be due to zosyn. Plan: -Continue ceftriaxone through 01/23/18. -Can be changed to cefdinir if ready to be discharged prior to that. -CBC in AM. -Family considering G tube placement. -d/w RN. Preethi Long MD [facility] M [phone] Subjective Date of service: 01/19/18 Principal diagnosis: Acute rt. MCA infarct., ischemic cardiomyopathy, renal mass. Interval history: Afebrile. Last fever 01/17/18. No events overnight. Microbiology: Blood cultures: 01/14 NGTD 01/17 NGTD Urine cultures: 01/14 neg Current Antimicrobials: Ceftriaxone 01/18- Previous Antimicrobials: Vancomycin Azithro Zosyn 01/14-01/18/18 Objective - Exam Narrative Exam: General appearance: Pt in NAD, non verbal. Eyes: anicteric sclerae, moist conjunctivae; PERRLA HENT: Atraumatic; oropharynx limited +NGT Neck: Trachea midline; supple. Lungs: Decreased at bases. CV: S1,S2. Abdomen: Soft, + mass sensation Extremities: No peripheral edema or extremity lymphadenopathy Skin: Normal temperature, turgor and texture; no rash, ulcers or subcutaneous nodules Psych: non verbal Neuro: non verbal. Left sided weakness Lines: aldridge catheter in place. - Constitutional Vitals: Vital Signs Temp Pulse Resp BP Pulse Ox 98.6 F 110 H 22 142/65 100 01/19/18 11:52 01/19/18 11:52 01/19/18 11:52 01/19/18 11:52 01/19/18 11:52 Temperature -Last 24 Hours Temperature 98.6 F Temperature 98.5 F Temperature 99.2 F Temperature 98.8 F Temperature 99.3 F - Labs CBC & Chem 7: 01/18/18 05:35 01/19/18 05:06 Labs: Abnormal lab results 01/18/18 01/18/18 01/18/18 Range/Units 12:02 14:57 18:10 Sodium 157 H (137-145) mmol/L Chloride 125.3 H (98-107) mmol/L Carbon Dioxide 20 L (22-30) mmol/L BUN 20 H (7-17) mg/dL Creatinine 0.6 L (0.7-1.2) mg/dL Glucose 323 H (65-100) mg/dL POC Glucose 352 H 238 H (70-105) Calcium 7.9 L (8.4-10.2) mg/dL Phosphorus (2.5-4.5) mg/dL 01/19/18 Range/Units 05:06 Sodium 155 H (137-145) mmol/L Chloride 119.9 H (98-107) mmol/L Carbon Dioxide 21 L (22-30) mmol/L BUN (7-17) mg/dL Creatinine 0.5 L (0.7-1.2) mg/dL Glucose 173 H (65-100) mg/dL POC Glucose (70-105) Calcium 8.0 L (8.4-10.2) mg/dL Phosphorus 2.20 L (2.5-4.5) mg/dL
--- NOTE | 2018-01-19 13:56 | Progress Note ---
Subjective Date of service: 01/19/18 Principal diagnosis: Acute rt. MCA infarct., ischemic cardiomyopathy, renal mass. Interval history: Altered mental status and slurred speech History of present illness: Sent from long term with change in mental status. Does have hx history of previous CVA. With history of DNR per [facility] this was confirmed by the patient's daughter at bedside. the family states that she is now no longer able to speak with worsening of her left-sided deficits, there were that she had a new event the symptoms are worse since Wednesday. She is awake but nonverbal not following commands with eyes open, and worse left sided weakness, pt here from [place] for further eval, poss worsening swallowing per family. 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 NO FAMILY AT BEDSIDE TODAY CTAP--RT 1CM AML, 6CM LEFT RENAL MASS A/P RENAL MASS - LEFT Acute CVA Dilated Ischemic cardiomyopathy, LVEF 30-35% Anemia s/p blood transfusion Sepsis Dementia DNR status observation - this is what I recommend radical nephrectomy - high risk for rolando operative event Objective - Constitutional Vitals: Vital Signs - 12hr 01/19/18 01/19/18 01/19/18 02:55 05:11 06:50 Temperature 99.2 F Pulse Rate 104 H 85 85 Pulse Rate [ Throughout] Respiratory 20 Rate Respiratory Rate [ Throughout] Blood Pressure 115/51 137/56 137/56 O2 Sat by Pulse 100 Oximetry 01/19/18 01/19/18 01/19/18 07:41 08:37 08:47 Temperature 98.5 F Pulse Rate 93 H Pulse Rate [ 94 H 92 H Throughout] Respiratory 22 Rate Respiratory 18 18 Rate [ Throughout] Blood Pressure 151/76 O2 Sat by Pulse 100 Oximetry 01/19/18 01/19/18 01/19/18 09:15 11:52 12:41 Temperature 98.6 F Pulse Rate 93 H 110 H 110 H Pulse Rate [ Throughout] Respiratory 22 Rate Respiratory Rate [ Throughout] Blood Pressure 151/76 142/65 142/65 O2 Sat by Pulse 100 Oximetry 01/19/18 13:40 Temperature Pulse Rate Pulse Rate [ 91 H Throughout] Respiratory Rate Respiratory 18 Rate [ Throughout] Blood Pressure O2 Sat by Pulse Oximetry - Labs CBC & Chem 7: 01/18/18 05:35 01/19/18 05:06 Labs: Abnormal lab results 01/18/18 01/18/18 01/18/18 Range/Units 12:02 14:57 18:10 Sodium 157 H (137-145) mmol/L Chloride 125.3 H (98-107) mmol/L Carbon Dioxide 20 L (22-30) mmol/L BUN 20 H (7-17) mg/dL Creatinine 0.6 L (0.7-1.2) mg/dL Glucose 323 H (65-100) mg/dL POC Glucose 352 H 238 H (70-105) Calcium 7.9 L (8.4-10.2) mg/dL Phosphorus (2.5-4.5) mg/dL 01/19/18 Range/Units 05:06 Sodium 155 H (137-145) mmol/L Chloride 119.9 H (98-107) mmol/L Carbon Dioxide 21 L (22-30) mmol/L BUN (7-17) mg/dL Creatinine 0.5 L (0.7-1.2) mg/dL Glucose 173 H (65-100) mg/dL POC Glucose (70-105) Calcium 8.0 L (8.4-10.2) mg/dL Phosphorus 2.20 L (2.5-4.5) mg/dL
[2018-01-19] MEDS: cefTRIAXone 1 GM in NACL 0.9% 20 ML IV SCH (14:03)
--- NOTE | 2018-01-19 14:51 | Progress Note ---
Assessment and Plan Acute right MCA ischemic infarct / CVA Anemia -likely chronic Complicated UTI, cx negtive Hydronephrosis with left renal mass Acute kidney injury - likeld due to volume depletion hypovolemia, patient was on HCTZ at home Aphasia and dense left hemiplegia - due to acute CVA Dysphagia with risk for aspiration Elevated troponin - likely due to acute renal failure. EKG negative Ischemic cardiomyopathy with EF 30-35% hypernatremia, likely dehydration Leukocytosis , Afebrile since 01/17/18. Etiology most likely UTI +/- Kidney mass. Failure to Thrive, severe malnutrition - Continue supportive care - cont hypotonic fluid, nephrology consulted - Continue ceftriaxone through 01/23/18. - Anticoagulation held due to large CVA concern for conversion to hemorrhagic - Obtained swallow evaluation would need a PEG and family agreeable to this. - Hold NSAIDs and other nephrotoxins. Renally dose all medications - Strict I's and O's, monitor volume status and electrolytes - Monitor CBC and electrolytes - consult GI for PEG placement - Discussed with family patient remains DO NOT RESUSCITATE - Very poor prognosis Brief history: The patient is a 87 YO AAF with history significant for Hypertension, DM type 2 , CVA, Dementia and skilled nursing resident who was sent to the ER for evaluation of change in the mental status. She was noted to have aphasia and unable to use left side of the body. MRI of the brain showed right MCA territory infarct. Radiological data: CT abdomen/pelvis showed irregular large cystic mass on left kidney inflammatory vs malignancy?, bilateral hydro and dilated collecting system, markedly dilated bladder, dilated CBD and distended GB with stones. Biliary can no cholecystitis. MRI brain - acute right MCA CVA HIDA scan - no sign of cholecystitis Physical exam: General appearance: Pt in NAD, non verbal. Eyes: anicteric sclerae, moist conjunctivae; PERRLA HENT: Atraumatic; oropharynx limited +NGT Neck: Trachea midline; supple, no thyromegaly or lymphadenopathy Lungs: left crackles CV: S1,S2. Abdomen: Soft, + mass sensation Extremities: No peripheral edema or extremity lymphadenopathy Skin: Normal temperature, turgor and texture; no rash, ulcers or subcutaneous nodules Psych: non verbal Neuro: non verbal. Left sided weakness Subjective Date of service: 01/19/18 Principal diagnosis: Acute rt. MCA infarct., ischemic cardiomyopathy, renal mass. Interval history: Patient is seen today for: CVA, Seen and examined at bedside; 24hour events reviewed; nursing staff ; no adverse overnight events reported Discussed with daughter about plan of care, daughter wants to get opinion for PEG tube feeding as pt failing swallow eval multiple times Objective - Constitutional Vitals: Vital Signs - 12hr 01/19/18 01/19/18 01/19/18 02:55 05:11 06:50 Temperature 99.2 F Pulse Rate 104 H 85 85 Pulse Rate [ Throughout] Respiratory 20 Rate Respiratory Rate [ Throughout] Blood Pressure 115/51 137/56 137/56 O2 Sat by Pulse 100 Oximetry 01/19/18 01/19/18 01/19/18 07:41 08:37 08:47 Temperature 98.5 F Pulse Rate 93 H Pulse Rate [ 94 H 92 H Throughout] Respiratory 22 Rate Respiratory 18 18 Rate [ Throughout] Blood Pressure 151/76 O2 Sat by Pulse 100 Oximetry 01/19/18 01/19/18 01/19/18 09:15 11:52 12:41 Temperature 98.6 F Pulse Rate 93 H 110 H 110 H Pulse Rate [ Throughout] Respiratory 22 Rate Respiratory Rate [ Throughout] Blood Pressure 151/76 142/65 142/65 O2 Sat by Pulse 100 Oximetry 01/19/18 13:40 Temperature Pulse Rate Pulse Rate [ 91 H Throughout] Respiratory Rate Respiratory 18 Rate [ Throughout] Blood Pressure O2 Sat by Pulse Oximetry - Labs CBC & Chem 7: 01/20/18 05:01 01/20/18 04:57 Labs: Abnormal lab results 01/18/18 01/18/18 01/18/18 Range/Units 12:02 14:57 18:10 Sodium 157 H (137-145) mmol/L Chloride 125.3 H (98-107) mmol/L Carbon Dioxide 20 L (22-30) mmol/L BUN 20 H (7-17) mg/dL Creatinine 0.6 L (0.7-1.2) mg/dL Glucose 323 H (65-100) mg/dL POC Glucose 352 H 238 H (70-105) Calcium 7.9 L (8.4-10.2) mg/dL Phosphorus (2.5-4.5) mg/dL 01/19/18 Range/Units 05:06 Sodium 155 H (137-145) mmol/L Chloride 119.9 H (98-107) mmol/L Carbon Dioxide 21 L (22-30) mmol/L BUN (7-17) mg/dL Creatinine 0.5 L (0.7-1.2) mg/dL Glucose 173 H (65-100) mg/dL POC Glucose (70-105) Calcium 8.0 L (8.4-10.2) mg/dL Phosphorus 2.20 L (2.5-4.5) mg/dL
--- NOTE | 2018-01-19 17:39 | Gastroenterology Consultation ---
History of Present Illness - Reason for Consult Consult date: 01/19/18 Inability to swallow due to CVA Requesting physician: VIKASH REYNAGA - History of Present Illness The patient is an 87 year old female for whom consultation was requested for possible PEG. She has had a large MCA CVA and has been dependent on tube feedings by NG tube. She has multiple co morbid medical conditions as below. Patient is unable to give any history due to the CVA and appears to have a dense aphasia. Past History Past Medical History: hypertension, stroke Past Surgical History: Other (unknown) Social history: no significant social history, . denies: smoking, alcohol abuse Family history: no significant family history, cancer (father of cancer, mother with ETOH complications. ) Medications and Allergies Allergies Allergy/AdvReac Type Severity Reaction Status Date / Time No Known Allergies Allergy Verified 01/14/18 01:11 Home Medications Medication Instructions Recorded Confirmed Last Taken Type Acetaminophen 650 mg PO Q6H PRN 01/13/18 01/13/18 Unknown History Acetaminophen [Tylenol Arthritis] 650 mg PO BID PRN 01/13/18 01/13/18 Unknown History Amoxicillin/Potassium Clav 1 each PO BID 01/13/18 01/13/18 Unknown History [Augmentin 875-125 Tablet] Aspirin 81 mg PO QDAY 01/13/18 01/13/18 Unknown History Cholecalciferol Vit D3 [Vitamin D3] 1,000 unit PO QDAY 01/13/18 01/13/18 Unknown History Docusate Sodium [Colace] 100 mg PO BID PRN 01/13/18 01/13/18 Unknown History Ferrous Sulfate [Feosol] 325 mg PO BID 01/13/18 01/13/18 Unknown History Glucagon,Human Recombinant 1 mg IJ Q15MIN PRN 01/13/18 01/13/18 Unknown History [Glucagon Emergency Kit] Insulin Lispro [Humalog] See Protocol SQ BID 01/13/18 01/13/18 Unknown History Levofloxacin [Levaquin TAB] 500 mg PO QDAY 01/13/18 01/13/18 Unknown History Melatonin 5 mg PO QHS 01/13/18 01/13/18 Unknown History Multivitamin [Multiple Vitamins] 1 each PO QDAY 01/13/18 01/13/18 Unknown History Omeprazole 20 mg PO QDAY 01/13/18 01/13/18 Unknown History cefTRIAXone [Rocephin] 1 gm IM Q24HR 01/13/18 01/13/18 Unknown History Active Meds: Active Medications Acetaminophen (Tylenol) 650 mg PO Q4H PRN PRN Reason: Pain, Mild (1-3) Last Admin: 01/16/18 17:18 Dose: 650 mg Acetaminophen (Tylenol) 650 mg OR Q4H PRN PRN Reason: Pain MILD(1-3)/Fever >100.5/[place] Last Admin: 01/16/18 00:55 Dose: 650 mg Albuterol (Proventil) 2.5 mg IH Q4HRT PRN PRN Reason: Shortness Of Breath Albuterol/Ipratropium (Duoneb *Not For Prn Use*) 1 ampul IH TIDRT [facility] Last Admin: 01/19/18 13:38 Dose: 1 ampul Lipase/Protease/Amylase (Pancreaze Dr 10,500 Unit) 1 each FEEDTUBE PRN PRN PRN Reason: For Clogged Feeding Tube Aspirin (Baby Aspirin) 81 mg PO QDAY [facility] Last Admin: 01/19/18 09:15 Dose: 81 mg Atorvastatin Calcium (Lipitor) 10 mg PO QHS [facility] Last Admin: 01/18/18 22:12 Dose: 10 mg Bisacodyl (Dulcolax) 10 mg OR QDAY PRN PRN Reason: Constipation unrelieved by MOM Dextrose (D50w (25gm) Syringe) 50 ml IV PRN PRN PRN Reason: Hypoglycemia Famotidine (Pepcid) 20 mg PO DAILY [facility] Last Admin: 01/19/18 09:15 Dose: 20 mg Hydralazine HCl (Apresoline) 10 mg IV Q6H PRN PRN Reason: Keep SBP between 160-185 mm Hg Dextrose (D5w) 1,000 mls @ 75 mls/hr IV DIRECT [facility] Last Admin: 01/19/18 16:25 Dose: 75 mls/hr Ceftriaxone Sodium 1 gm/ (Sodium Chloride) 20 mls @ 20 mls/10 min IV Q24H [facility] Last Admin: 01/19/18 14:03 Dose: 20 mls/10 min Insulin Aspart (Novolog) 0 units SUB-Q Q6HR [facility] PRN Reason: Protocol Last Admin: 01/19/18 12:44 Dose: 3 units Lisinopril (Zestril) 2.5 mg PO QDAY [facility] Last Admin: 01/19/18 09:15 Dose: 2.5 mg Metoprolol Tartrate (Lopressor) 25 mg PO Q6H [facility] Last Admin: 01/19/18 12:41 Dose: 25 mg Morphine Sulfate (Morphine) 2 mg IV Q4H PRN PRN Reason: Pain, Moderate (4-6) Last Admin: 01/18/18 18:16 Dose: 2 mg Nitroglycerin (Nitro Dur) 0.4 mg TD QDAY@0600 [facility] Last Admin: 01/19/18 06:50 Dose: 0.4 mg Ondansetron HCl (Zofran) 4 mg IV Q8H PRN PRN Reason: N/V unrelieved by Reglan Promethazine HCl (Phenergan) 25 mg OR Q6H PRN PRN Reason: Nausea And Vomiting Simple Syrup (Simple Syrup) 15 ml FEEDTUBE PRN PRN PRN Reason: Hypoglycemia Simple Syrup (Simple Syrup) 30 ml FEEDTUBE PRN PRN PRN Reason: Hypoglycemia Sodium Bicarbonate (Sodium Bicarbonate) 325 mg FEEDTUBE PRN PRN PRN Reason: For Clogged Feeding Tube Sodium Chloride (Sodium Chloride Flush Syringe 10 Ml) 10 ml IV PRN PRN PRN Reason: LINE FLUSH Review of Systems - Review of Systems ROS unobtainable: due to mental status Exam - Constitutional Vital Signs: Temp Pulse Resp BP Pulse Ox 98.6 F 90 18 142/65 100 01/19/18 11:52 01/19/18 13:50 01/19/18 13:50 01/19/18 12:41 01/19/18 11:52 General appearance: no acute distress, well-nourished, other - EENT Eyes: PERRL - Respiratory Respiratory effort: normal Respiratory: bilateral: CTA - Breasts Breasts: deferred - Cardiovascular Rhythm: regular Heart Sounds: Present: S1 & S2. Absent: gallop, rub - Gastrointestinal General gastrointestinal: Present: soft, non-tender, non-distended, normal bowel sounds. Absent: hepatomegaly, splenomegaly, mass Rectal Exam: deferred - Genitourinary Female Genitourinary: deferred - Integumentary Integumentary: Present: clear, warm, dry - Neurologic Neurological: disoriented, other (Dense aphasia. Eyes open. Unresponsive.) - Labs CBC & Chem 7: 01/18/18 05:35 01/19/18 05:06 Lab Results: Laboratory Results - last 24 hr 01/14/18 01/18/18 01/18/18 01:05 12:02 18:10 Sodium Potassium Chloride Carbon Dioxide Anion Gap BUN Creatinine Estimated GFR BUN/Creatinine Ratio Glucose POC Glucose 352 H 238 H Hemoglobin A1c Calcium Phosphorus Magnesium 25-OH Vitamin D Total 30 01/19/18 01/19/18 01/19/18 00:53 05:06 07:59 Sodium 155 H Potassium 4.1 Chloride 119.9 H Carbon Dioxide 21 L Anion Gap 18 BUN 16 Creatinine 0.5 L Estimated GFR > 60 BUN/Creatinine Ratio 32 Glucose 173 H POC Glucose 104 Hemoglobin A1c < 4.2 Calcium 8.0 L Phosphorus 2.20 L Magnesium 2.00 25-OH Vitamin D Total Assessment and Plan - Patient Problems (1) Inability to swallow Current Visit: Yes Status: Acute Plan to address problem: Unable to swallow due to CVA. Tube feed dependent. I discussed possible PEG with her daughter, Inna Kaur, at length. The purpose, risks, benefits and alternatives (NGT feeds, no feedings, hospice care) were discussed at length. She understands that it will not improve the quality of life after this major CVA and will not prevent aspiration. She will discuss with siblings and get back with us tomorrow. PEG Wednesday if desired by family. Thank you for asking us to see her in consultation. (2) CVA (cerebral vascular accident) Current Visit: Yes Status: Acute Qualifiers: Precerebral and cerebral artery: middle cerebral artery (3) Dementia Current Visit: Yes Status: Acute (4) Ischemic dilated cardiomyopathy Current Visit: Yes Status: Acute (5) NSTEMI (non-ST elevated myocardial infarction) Current Visit: Yes Status: Acute (6) Renal mass Current Visit: Yes Status: Acute
[2018-01-19] MEDS ORDERED: PERCOCET 5/325 PO PRN (21:33)
[2018-01-19] MEDS: K-PHOS NEUTRAL FEEDTUBE SCH (23:17)
[2018-01-20] MEDS: NOVOLOG SUB-Q SCH ×4 (00:56→18:32)
[2018-01-20 05:25] LABS: Basophils % (Auto) 0.3 % (0.0-1.8); Eosinophils # (Auto) 0.3 K/mm3 (0.0-0.4); Eosinophils % (Auto) 2.5 % (0.0-4.3); Hemoglobin 7.6 gm/dl (10.1-14.3); Lymphocytes % (Auto) 9.2 % (13.4-35.0); Mean Corpuscular HGB Conc 32 % (30-34); Mean Corpuscular Volume 82 fl (79-97); Monocytes # (Auto) 0.4 K/mm3 (0.0-0.8); Monocytes % (Auto) 3.7 % (0.0-7.3); Platelet Count 130 K/mm3 (140-440); Red Blood Count 2.94 M/mm3 (3.65-5.03); Red Cell Distribution Width 19.3 % (13.2-15.2)
[2018-01-20 05:44] LABS: BUN/Creatinine Ratio 33; Blood Urea Nitrogen 13 mg/dL (7-17); Calcium 7.6 mg/dL (8.4-10.2); Hemolysis Index 1
[2018-01-20 06:06] LABS: Mean Corpuscular Hemoglobin 26 pg (28-32)
[2018-01-20] MEDS: LOPRESSOR PO SCH ×5 (06:27→18:30)
[2018-01-20] MEDS: NITRO DUR TD SCH (06:28)
[2018-01-20] MEDS: DUONEB *Not for PRN Use IH SCH ×3 (08:01→19:50)
--- NOTE | 2018-01-20 09:25 | Progress Note ---
Assessment and Plan 1. Hypernatremia: Continue water flushes and IV D5W. Sodium level is improving. 2. Acute kidney injury: Renal function is better. 3. Electrolytes: Monitor and replete. 4. Metabolic acidosis: Improved. 5. Bilateral hydronephrosis: Evaluated by Urologist. 6. Acute MCA territory CVA: Followed by Neuro. 7. Left kidney mass. Subjective Date of service: 01/20/18 Principal diagnosis: Acute rt. MCA infarct., ischemic cardiomyopathy, renal mass. Interval history: Patient was seen and examined at the bedside. Objective - Vital Signs Vital signs: Vital Signs - 12hr 01/19/18 01/20/18 01/20/18 22:00 00:05 04:40 Temperature 98.4 F 99.6 F Pulse Rate 107 H 108 H Pulse Rate [ 110 H Right Radial] Respiratory 18 20 20 Rate Blood Pressure 100/38 118/54 O2 Sat by Pulse 99 97 Oximetry 01/20/18 01/20/18 01/20/18 06:27 06:28 06:31 Temperature Pulse Rate 104 H 108 H 108 H Pulse Rate [ Right Radial] Respiratory Rate Blood Pressure 100/38 118/54 118/54 O2 Sat by Pulse Oximetry 01/20/18 01/20/18 08:00 09:12 Temperature 97.9 F Pulse Rate 83 88 Pulse Rate [ Right Radial] Respiratory 32 H Rate Blood Pressure 126/58 O2 Sat by Pulse 100 Oximetry - General Appearance General appearance: well-developed, appears stated age, other (no obvious distress) EENT: ATNC Neck: supple Respiratory: Present: Clear to Ascultation Cardiology: S1S2, no murmurs Gastrointestinal: normoactive bowel sounds, no tenderness Integumentary: no rash Neurologic: other (barely arousable) Musculoskeletal: other (no edema) - Lab 01/20/18 05:01 01/20/18 04:57 Most recent lab results Calcium 7.6 mg/dL (8.4-10.2) L 01/20/18 04:57 Phosphorus 2.20 mg/dL (2.5-4.5) L 01/20/18 04:57 Magnesium 2.00 mg/dL (1.7-2.3) 01/19/18 05:06
[2018-01-20] MEDS ORDERED: KPHOS 30 MMOL in NACL 0.9% 500 ML 500 ML IV ONE (09:27)
--- NOTE | 2018-01-20 11:05 | Progress Note ---
Assessment and Plan Assessment: 1) Sepsis: Leukocytosis is resolved. Afebrile since 01/17/18. Etiology most likely UTI +/- Kidney mass. 2) Complicated UTI: -Urine cx negative. -CT showed irregular large cystic mass on left kidney inflammatory vs malignancy?, bilateral hydro and dilated collecting system, markedly dilated bladder, dilated CBD and distended GB with stones. Biliary scan no cholecystitis. 3) Acute right MCA infarct. 4) Dysphagia due to 3). 5) Thrombocytopenia. Could be due to zosyn. Improved. Plan: -Continue ceftriaxone through 01/23/18. -Can be changed to cefdinir 300 mg PO q12h if ready to be discharged prior to that. -Family has not made a decision about G tube placement yet. -d/w pt's family bedside. -ID will sign off. -Please call with questions/concerns. Preethi Long MD [facility] M [phone] Subjective Date of service: 01/20/18 Principal diagnosis: Acute rt. MCA infarct., ischemic cardiomyopathy, renal mass. Interval history: Afebrile. Non-verbal. Microbiology: Blood cultures: 01/14 NGTD 01/17 NGTD Urine cultures: 01/14 neg Current Antimicrobials: Ceftriaxone 01/18- Previous Antimicrobials: Vancomycin Azithro Zosyn 01/14-01/18/18 Objective - Exam Narrative Exam: General appearance: Pt in NAD, non verbal. Eyes: anicteric sclerae, moist conjunctivae; PERRLA HENT: Atraumatic; oropharynx limited +NGT Neck: Trachea midline; supple. Lungs: Decreased at bases. CV: S1,S2. Abdomen: Soft, + mass sensation Extremities: No c/c/e. Skin: Normal temperature, turgor and texture; no rash, ulcers or subcutaneous nodules Psych: non verbal Neuro: non verbal. Left sided weakness Lines: aldridge catheter in place. - Constitutional Vitals: Vital Signs Temp Pulse Resp BP Pulse Ox 97.9 F 88 20 126/58 100 01/20/18 08:00 01/20/18 09:12 01/20/18 08:15 01/20/18 08:00 01/20/18 08:05 Temperature -Last 24 Hours Temperature 97.9 F Temperature 99.6 F Temperature 98.4 F Temperature 98.3 F Temperature 99.1 F Temperature 98.6 F - Labs CBC & Chem 7: 01/20/18 05:01 01/20/18 04:57 Labs: Abnormal lab results 01/19/18 01/19/18 01/20/18 Range/Units 11:58 18:11 00:15 WBC (4.5-11.0) K/mm3 RBC (3.65-5.03) M/mm3 Hgb (10.1-14.3) gm/dl Hct (30.3-42.9) % MCH (28-32) pg RDW (13.2-15.2) % Plt Count (140-440) K/mm3 Lymph % (Auto) (13.4-35.0) % Lymph # (1.2-5.4) K/mm3 Seg Neutrophils % (40.0-70.0) % Seg Neutrophils # (1.8-7.7) K/mm3 Sodium (137-145) mmol/L Potassium (3.6-5.0) mmol/L Chloride (98-107) mmol/L Creatinine (0.7-1.2) mg/dL Glucose (65-100) mg/dL POC Glucose 264 H 215 H 225 H (70-105) Calcium (8.4-10.2) mg/dL Phosphorus (2.5-4.5) mg/dL 01/20/18 01/20/18 01/20/18 Range/Units 04:57 05:01 08:05 WBC 11.3 H (4.5-11.0) K/mm3 RBC 2.94 L (3.65-5.03) M/mm3 Hgb 7.6 L (10.1-14.3) gm/dl Hct 24.0 L (30.3-42.9) % MCH 26 L (28-32) pg RDW 19.3 H (13.2-15.2) % Plt Count 130 L (140-440) K/mm3 Lymph % (Auto) 9.2 L (13.4-35.0) % Lymph # 1.0 L (1.2-5.4) K/mm3 Seg Neutrophils % 84.3 H (40.0-70.0) % Seg Neutrophils # 9.5 H (1.8-7.7) K/mm3 Sodium 149 H (137-145) mmol/L Potassium 3.5 L (3.6-5.0) mmol/L Chloride 112.9 H (98-107) mmol/L Creatinine 0.4 L (0.7-1.2) mg/dL Glucose 177 H (65-100) mg/dL POC Glucose 229 H (70-105) Calcium 7.6 L (8.4-10.2) mg/dL Phosphorus 2.20 L (2.5-4.5) mg/dL
[2018-01-20] MEDS: BABY ASPIRIN PO SCH (11:08)
[2018-01-20] MEDS: PEPCID PO SCH (11:08)
[2018-01-20] MEDS: K-PHOS NEUTRAL FEEDTUBE SCH ×4 (11:08→21:46)
[2018-01-20] MEDS: ZESTRIL PO SCH (11:09)
[2018-01-20] MEDS: D5W 1,000 ML IV SCH (12:18)
--- NOTE | 2018-01-20 14:54 | Progress Note ---
Assessment and Plan Acute right MCA ischemic infarct / CVA Anemia -likely chronic Complicated UTI, cx negtive Hydronephrosis with left renal mass Acute kidney injury - likeld due to volume depletion hypovolemia, patient was on HCTZ at home Aphasia and dense left hemiplegia - due to acute CVA Dysphagia with risk for aspiration Elevated troponin - likely due to acute renal failure. EKG negative Ischemic cardiomyopathy with EF 30-35% hypernatremia, likely dehydration Leukocytosis , Afebrile since 01/17/18. Etiology most likely UTI +/- Kidney mass. Failure to Thrive, severe malnutrition - Continue supportive care - cont hypotonic fluid, nephrology consulted - Continue ceftriaxone through 01/23/18. - Anticoagulation held due to large CVA concern for conversion to hemorrhagic - Hold NSAIDs and other nephrotoxins. Renally dose all medications - Strict I's and O's, monitor volume status and electrolytes - Monitor CBC and electrolytes - Obtained swallow evaluation would need a PEG for feeding - consulted GI for PEG placement, but family now do not want that considering her poor prognosis - Discussed with family patient remains DO NOT RESUSCITATE - Very poor prognosis, family to decide for hospice Brief history: The patient is a 87 YO AAF with history significant for Hypertension, DM type 2 , CVA, Dementia and [facility] resident who was sent to the ER for evaluation of change in the mental status. She was noted to have aphasia and unable to use left side of the body. MRI of the brain showed right MCA territory infarct. Radiological data: CT abdomen/pelvis showed irregular large cystic mass on left kidney inflammatory vs malignancy?, bilateral hydro and dilated collecting system, markedly dilated bladder, dilated CBD and distended GB with stones. Biliary can no cholecystitis. MRI brain - acute right MCA CVA HIDA scan - no sign of cholecystitis Physical exam: General appearance: Pt in NAD, non verbal. Eyes: anicteric sclerae, moist conjunctivae; HENT: Atraumatic; oropharynx limited +NGT Neck: Trachea midline; supple, no thyromegaly or lymphadenopathy Lungs: left crackles CV: S1,S2. Abdomen: Soft, + mass sensation Extremities: No peripheral edema or extremity lymphadenopathy Skin: Normal temperature, turgor and texture; no rash, ulcers or subcutaneous nodules Psych: non verbal Neuro: non verbal. Left sided weakness Subjective Date of service: 01/20/18 Principal diagnosis: Acute rt. MCA infarct., ischemic cardiomyopathy, renal mass. Interval history: Patient is seen today for: CVA, Seen and examined at bedside; 24hour events reviewed; nursing staff ; no adverse overnight events reported Discussed with daughter about plan of care, they finally decided not to go for PEG tube, they are now deciding for hospice Objective - Constitutional Vitals: Vital Signs - 12hr 01/20/18 01/20/18 01/20/18 04:40 06:27 06:28 Temperature 99.6 F Pulse Rate 108 H 104 H 108 H Pulse Rate [ Anterior Bilateral Throughout] Pulse Rate [ Throughout] Respiratory 20 Rate Respiratory Rate [Anterior Bilateral Throughout] Respiratory Rate [ Throughout] Blood Pressure 118/54 100/38 118/54 O2 Sat by Pulse 97 Oximetry 01/20/18 01/20/18 01/20/18 06:31 08:00 08:05 Temperature 97.9 F Pulse Rate 108 H 83 Pulse Rate [ 85 Anterior Bilateral Throughout] Pulse Rate [ Throughout] Respiratory 32 H Rate Respiratory 20 Rate [Anterior Bilateral Throughout] Respiratory Rate [ Throughout] Blood Pressure 118/54 126/58 O2 Sat by Pulse 100 100 Oximetry 01/20/18 01/20/18 01/20/18 08:15 09:12 11:06 Temperature Pulse Rate 88 Pulse Rate [ 92 H Anterior Bilateral Throughout] Pulse Rate [ Throughout] Respiratory Rate Respiratory 20 Rate [Anterior Bilateral Throughout] Respiratory Rate [ Throughout] Blood Pressure O2 Sat by Pulse 100 Oximetry 01/20/18 01/20/18 13:49 13:59 Temperature Pulse Rate Pulse Rate [ Anterior Bilateral Throughout] Pulse Rate [ 108 H 110 H Throughout] Respiratory Rate Respiratory Rate [Anterior Bilateral Throughout] Respiratory 22 22 Rate [ Throughout] Blood Pressure O2 Sat by Pulse Oximetry - Labs CBC & Chem 7: 01/20/18 05:01 01/21/18 05:32 Labs: Abnormal lab results 01/19/18 01/19/18 01/20/18 Range/Units 11:58 18:11 00:15 WBC (4.5-11.0) K/mm3 RBC (3.65-5.03) M/mm3 Hgb (10.1-14.3) gm/dl Hct (30.3-42.9) % MCH (28-32) pg RDW (13.2-15.2) % Plt Count (140-440) K/mm3 Lymph % (Auto) (13.4-35.0) % Lymph # (1.2-5.4) K/mm3 Seg Neutrophils % (40.0-70.0) % Seg Neutrophils # (1.8-7.7) K/mm3 Sodium (137-145) mmol/L Potassium (3.6-5.0) mmol/L Chloride (98-107) mmol/L Creatinine (0.7-1.2) mg/dL Glucose (65-100) mg/dL POC Glucose 264 H 215 H 225 H (70-105) Calcium (8.4-10.2) mg/dL Phosphorus (2.5-4.5) mg/dL 01/20/18 01/20/18 01/20/18 Range/Units 04:57 05:01 08:05 WBC 11.3 H (4.5-11.0) K/mm3 RBC 2.94 L (3.65-5.03) M/mm3 Hgb 7.6 L (10.1-14.3) gm/dl Hct 24.0 L (30.3-42.9) % MCH 26 L (28-32) pg RDW 19.3 H (13.2-15.2) % Plt Count 130 L (140-440) K/mm3 Lymph % (Auto) 9.2 L (13.4-35.0) % Lymph # 1.0 L (1.2-5.4) K/mm3 Seg Neutrophils % 84.3 H (40.0-70.0) % Seg Neutrophils # 9.5 H (1.8-7.7) K/mm3 Sodium 149 H (137-145) mmol/L Potassium 3.5 L (3.6-5.0) mmol/L Chloride 112.9 H (98-107) mmol/L Creatinine 0.4 L (0.7-1.2) mg/dL Glucose 177 H (65-100) mg/dL POC Glucose 229 H (70-105) Calcium 7.6 L (8.4-10.2) mg/dL Phosphorus 2.20 L (2.5-4.5) mg/dL 01/20/18 Range/Units 12:01 WBC (4.5-11.0) K/mm3 RBC (3.65-5.03) M/mm3 Hgb (10.1-14.3) gm/dl Hct (30.3-42.9) % MCH (28-32) pg RDW (13.2-15.2) % Plt Count (140-440) K/mm3 Lymph % (Auto) (13.4-35.0) % Lymph # (1.2-5.4) K/mm3 Seg Neutrophils % (40.0-70.0) % Seg Neutrophils # (1.8-7.7) K/mm3 Sodium (137-145) mmol/L Potassium (3.6-5.0) mmol/L Chloride (98-107) mmol/L Creatinine (0.7-1.2) mg/dL Glucose (65-100) mg/dL POC Glucose 250 H (70-105) Calcium (8.4-10.2) mg/dL Phosphorus (2.5-4.5) mg/dL
--- NOTE | 2018-01-20 17:35 | Gastroenterology Progress Note ---
Assessment and Plan - Patient Problems (1) Inability to swallow Current Visit: Yes Status: Acute Plan to address problem: I discussed care with her daughter at bedside who states that the family has decided against PEG at this time. I will s/o and f/u at your request. Thank you. (2) CVA (cerebral vascular accident) Current Visit: Yes Status: Acute Qualifiers: Precerebral and cerebral artery: middle cerebral artery (3) Dementia Current Visit: Yes Status: Acute (4) Ischemic dilated cardiomyopathy Current Visit: Yes Status: Acute (5) NSTEMI (non-ST elevated myocardial infarction) Current Visit: Yes Status: Acute (6) Renal mass Current Visit: Yes Status: Acute Subjective Principal diagnosis: inability to swallow Interval history: The patient is non verbal. Objective - Constitutional Vitals: Temp Pulse Resp BP Pulse Ox 97.9 F 110 H 22 126/58 100 01/20/18 08:00 01/20/18 13:59 01/20/18 13:59 01/20/18 08:00 01/20/18 11:06 General appearance: no acute distress - EENT Eyes: PERRL - Respiratory Respiratory effort: normal Respiratory: bilateral: CTA - Cardiovascular Rhythm: regular - Gastrointestinal General gastrointestinal: Present: soft, non-tender, non-distended, normal bowel sounds - Neurologic Neurological: disoriented, strength equal bilaterally - Labs CBC & Chem 7: 01/20/18 05:01 01/20/18 04:57 Labs: Laboratory Results - last 24 hr 01/14/18 01/19/18 01/19/18 01:05 11:58 18:11 WBC RBC Hgb Hct MCV MCH MCHC RDW Plt Count Lymph % (Auto) Swift % (Auto) Eos % (Auto) Baso % (Auto) Lymph # Swift # Eos # Baso # Seg Neutrophils % Seg Neutrophils # Sodium Potassium Chloride Carbon Dioxide Anion Gap BUN Creatinine Estimated GFR BUN/Creatinine Ratio Glucose POC Glucose 264 H 215 H Calcium Phosphorus 25-Hydroxy Vitamin D2 . 25-Hydroxy Vitamin D3 . 01/20/18 01/20/18 01/20/18 00:15 04:57 05:01 WBC 11.3 H RBC 2.94 L Hgb 7.6 L Hct 24.0 L MCV 82 MCH 26 L MCHC 32 RDW 19.3 H Plt Count 130 L Lymph % (Auto) 9.2 L Swift % (Auto) 3.7 Eos % (Auto) 2.5 Baso % (Auto) 0.3 Lymph # 1.0 L Swift # 0.4 Eos # 0.3 Baso # 0.0 Seg Neutrophils % 84.3 H Seg Neutrophils # 9.5 H Sodium 149 H Potassium 3.5 L Chloride 112.9 H Carbon Dioxide 23 Anion Gap 17 BUN 13 Creatinine 0.4 L Estimated GFR > 60 BUN/Creatinine Ratio 33 Glucose 177 H POC Glucose 225 H Calcium 7.6 L Phosphorus 2.20 L 25-Hydroxy Vitamin D2 25-Hydroxy Vitamin D3 01/20/18 01/20/18 08:05 12:01 WBC RBC Hgb Hct MCV MCH MCHC RDW Plt Count Lymph % (Auto) Swift % (Auto) Eos % (Auto) Baso % (Auto) Lymph # Swift # Eos # Baso # Seg Neutrophils % Seg Neutrophils # Sodium Potassium Chloride Carbon Dioxide Anion Gap BUN Creatinine Estimated GFR BUN/Creatinine Ratio Glucose POC Glucose 229 H 250 H Calcium Phosphorus 25-Hydroxy Vitamin D2 25-Hydroxy Vitamin D3
[2018-01-20] MEDS: cefTRIAXone 1 GM in NACL 0.9% 20 ML IV SCH (18:31)
[2018-01-21] MEDS: LOPRESSOR PO SCH ×3 (00:41→16:33)
[2018-01-21] MEDS: NOVOLOG SUB-Q SCH ×3 (00:42→16:34)
[2018-01-21] MEDS: NITRO DUR TD SCH (06:13)
[2018-01-21 06:32] LABS: BUN/Creatinine Ratio 28; Blood Urea Nitrogen 11 mg/dL (7-17); Calcium 7.5 mg/dL (8.4-10.2); Hemolysis Index 18
[2018-01-21] MEDS: DUONEB *Not for PRN Use IH SCH ×3 (08:04→19:45)
[2018-01-21] MEDS: BABY ASPIRIN PO SCH (09:41)
[2018-01-21] MEDS: K-PHOS NEUTRAL FEEDTUBE SCH ×3 (09:41→21:27)
[2018-01-21] MEDS: ZESTRIL PO SCH (09:41)
[2018-01-21] MEDS: PEPCID PO SCH (09:41)
--- NOTE | 2018-01-21 09:44 | Progress Note ---
Assessment and Plan 1. Hypernatremia: Continue water flushes. A dose of HCTZ. Monitor Sodium level. 2. Acute kidney injury: Renal function is better. 3. Electrolytes: Monitor and replete. 4. Metabolic acidosis: Improved. 5. Bilateral hydronephrosis: Evaluated by Urologist. 6. Acute MCA territory CVA: Followed by Neuro. 7. Left kidney mass. Subjective Date of service: 01/21/18 Principal diagnosis: Acute rt. MCA infarct., ischemic cardiomyopathy, renal mass. Interval history: Patient was seen and examined at the bedside. Per RN the D5W was stopped due to hyperglycemia and edema. Objective - Vital Signs Vital signs: Vital Signs - 12hr 01/20/18 01/20/18 01/21/18 22:00 23:53 00:41 Temperature 99.8 F H Pulse Rate 96 H 109 H 100 H Pulse Rate [ 109 H Right Radial] Respiratory 32 H 38 H Rate Blood Pressure 138/61 138/61 O2 Sat by Pulse 98 Oximetry 01/21/18 01/21/18 01/21/18 03:37 06:13 06:14 Temperature 99.1 F Pulse Rate 87 104 H 104 H Pulse Rate [ Right Radial] Respiratory 30 H Rate Blood Pressure 149/61 149/61 149/61 O2 Sat by Pulse 100 Oximetry 01/21/18 08:55 Temperature Pulse Rate 89 Pulse Rate [ Right Radial] Respiratory Rate Blood Pressure O2 Sat by Pulse Oximetry - General Appearance General appearance: well-developed, appears stated age, other (no distress) EENT: ATNC, PERRL Neck: supple Respiratory: Present: Clear to Ascultation Cardiology: regular, S1S2, no murmurs Gastrointestinal: normoactive bowel sounds, no tenderness, no distended Integumentary: no rash, warm and dry Neurologic: other (barely arousable) Musculoskeletal: other (1+ edema of both LEs noted) - Lab 01/20/18 05:01 01/21/18 05:32 Most recent lab results Calcium 7.5 mg/dL (8.4-10.2) L 01/21/18 05:32 Phosphorus 2.80 mg/dL (2.5-4.5) D 01/21/18 05:32 Magnesium 2.00 mg/dL (1.7-2.3) 01/21/18 05:32
[2018-01-21] MEDS ORDERED: POTASSIUM CHLORIDE FEEDTUBE ONE (10:42)
[2018-01-21] MEDS ORDERED: HCTZ FEEDTUBE SCH (11:00)
--- NOTE | 2018-01-21 11:21 | Progress Note ---
Assessment and Plan 87 year old female with large right MCA stroke. Still obtunded with left dense hemiparesis and gaze deviation. Hypertension and dilated cardiomyopathy on echo. Feeding tube in place. Breathing on her own but tachypneic. Plan - Continue conservative care. PT, up in chair. Subjective Date of service: 01/21/18 Principal diagnosis: Acute rt. MCA infarct., ischemic cardiomyopathy, renal mass. Interval history: 87 year old [facility] with several day history of left sided weakness and unresponsiveness. Found to have large right MCA distribution infarct on CT/MRI. Also found to have ischemic cardiomyopathy with EF of 30 to 35 % and a renal mass on abdominal CT performed as part of fever work-up. Today the patient is still obtunded, dobhoff feeding tube in place. Family has refused placement of PEG tube. Objective - Exam Narrative Exam: HEENT - pupils perrl. Eyes deviated to the right no inflammation. Chest - clear to auscultation. Heart - reg. rate, nl S-1, S-2 Abdomen - soft, nontender. Extremities - no CCE Neurological - Eyes closed, does open them spontaneously. No verbalization. Does not follow commands. CN's - dense right gaze deviation. left facial droop. Motor - left arm flaccid. occasional movement of left lower extremity Reflexes - slightly more brisk on left. no clonus or babinski Sensory - difficult to assess. appreciates pain by grimacing, trying to withdraw. Cerebellar - unable to assess. - Vital Sign Vital Signs - 12hr 01/20/18 01/21/18 01/21/18 23:53 00:41 03:37 Temperature 99.8 F H 99.1 F Pulse Rate 109 H 100 H 87 Pulse Rate [ Anterior Bilateral Throughout] Respiratory 38 H 30 H Rate Respiratory Rate [Anterior Bilateral Throughout] Blood Pressure 138/61 138/61 149/61 O2 Sat by Pulse 98 100 Oximetry 01/21/18 01/21/18 01/21/18 06:13 06:14 08:04 Temperature Pulse Rate 104 H 104 H Pulse Rate [ 89 Anterior Bilateral Throughout] Respiratory Rate Respiratory 20 Rate [Anterior Bilateral Throughout] Blood Pressure 149/61 149/61 O2 Sat by Pulse 100 Oximetry 01/21/18 01/21/18 08:15 08:55 Temperature Pulse Rate 89 Pulse Rate [ 94 H Anterior Bilateral Throughout] Respiratory Rate Respiratory 18 Rate [Anterior Bilateral Throughout] Blood Pressure O2 Sat by Pulse Oximetry - Laboratory Findings CBC and BMP: 01/20/18 05:01 01/21/18 05:32 Abnormal Lab Findings: Abnormal Labs 01/13/18 01/13/18 01/13/18 18:24 18:24 23:05 WBC 12.0 H RBC 3.06 L Hgb 7.7 L Hct 25.4 L MCH 25 L RDW 18.7 H Plt Count Lymph % (Auto) 4.9 L Lymph # 0.6 L Seg Neutrophils % 89.7 H Seg Neutrophils # 10.7 H Sodium 147 H Potassium Chloride 111.0 H Carbon Dioxide 19 L BUN 25 H Creatinine 1.4 H Glucose 166 H POC Glucose 165 H Calcium 7.9 L Phosphorus Iron TIBC Transferrin Total Bilirubin Alkaline Phosphatase 525 H Troponin T 0.122 H* Total Protein Albumin 2.5 L HDL Cholesterol 36 L TSH Free T4 Urine WBC (Auto) Crossmatch 01/14/18 01/14/18 01/14/18 01:05 01:05 03:25 WBC RBC Hgb Hct MCH RDW Plt Count Lymph % (Auto) Lymph # Seg Neutrophils % Seg Neutrophils # Sodium Potassium Chloride Carbon Dioxide BUN Creatinine Glucose POC Glucose Calcium Phosphorus Iron 22 L TIBC 156 L Transferrin 123 L Total Bilirubin Alkaline Phosphatase Troponin T Total Protein Albumin HDL Cholesterol TSH Free T4 Urine WBC (Auto) 147.0 H Crossmatch See Detail 01/14/18 01/14/18 01/14/18 07:31 11:07 14:41 WBC RBC Hgb Hct MCH RDW Plt Count Lymph % (Auto) Lymph # Seg Neutrophils % Seg Neutrophils # Sodium Potassium Chloride Carbon Dioxide BUN Creatinine Glucose POC Glucose 220 H 199 H Calcium Phosphorus Iron TIBC Transferrin Total Bilirubin Alkaline Phosphatase Troponin T 0.176 H* D Total Protein Albumin HDL Cholesterol TSH Free T4 Urine WBC (Auto) Crossmatch 01/14/18 01/14/18 01/14/18 14:41 16:00 19:38 WBC RBC Hgb Hct MCH RDW Plt Count Lymph % (Auto) Lymph # Seg Neutrophils % Seg Neutrophils # Sodium Potassium Chloride Carbon Dioxide BUN Creatinine Glucose POC Glucose 170 H Calcium Phosphorus Iron TIBC Transferrin Total Bilirubin Alkaline Phosphatase Troponin T 0.161 H* Total Protein Albumin HDL Cholesterol TSH 0.232 L Free T4 1.63 H Urine WBC (Auto) Crossmatch 01/14/18 01/15/18 01/15/18 21:07 04:20 04:20 WBC 12.0 H RBC 3.28 L Hgb 8.7 L Hct 27.3 L MCH 27 L RDW 17.8 H Plt Count Lymph % (Auto) 5.0 L Lymph # 0.6 L Seg Neutrophils % 88.7 H Seg Neutrophils # 10.7 H Sodium 159 H D Potassium Chloride 124.3 H Carbon Dioxide 19 L BUN 19 H Creatinine Glucose 178 H POC Glucose 148 H Calcium 7.6 L Phosphorus Iron TIBC Transferrin Total Bilirubin 1.40 H Alkaline Phosphatase 410 H Troponin T Total Protein 5.7 L Albumin 2.4 L HDL Cholesterol TSH Free T4 Urine WBC (Auto) Crossmatch 01/15/18 01/15/18 01/15/18 06:52 07:52 12:40 WBC RBC Hgb Hct MCH RDW Plt Count Lymph % (Auto) Lymph # Seg Neutrophils % Seg Neutrophils # Sodium Potassium Chloride Carbon Dioxide BUN Creatinine Glucose POC Glucose 205 H 189 H 211 H Calcium Phosphorus Iron TIBC Transferrin Total Bilirubin Alkaline Phosphatase Troponin T Total Protein Albumin HDL Cholesterol TSH Free T4 Urine WBC (Auto) Crossmatch 01/15/18 01/15/18 01/16/18 15:42 22:38 01:42 WBC RBC Hgb Hct MCH RDW Plt Count Lymph % (Auto) Lymph # Seg Neutrophils % Seg Neutrophils # Sodium Potassium Chloride Carbon Dioxide BUN Creatinine Glucose POC Glucose 193 H 186 H 204 H Calcium Phosphorus Iron TIBC Transferrin Total Bilirubin Alkaline Phosphatase Troponin T Total Protein Albumin HDL Cholesterol TSH Free T4 Urine WBC (Auto) Crossmatch 01/16/18 01/16/18 01/16/18 06:02 06:02 16:57 WBC RBC 3.16 L Hgb 8.4 L Hct 26.6 L MCH 27 L RDW 19.0 H Plt Count 104 L Lymph % (Auto) Lymph # Seg Neutrophils % Seg Neutrophils # Sodium 159 H Potassium Chloride 123.6 H Carbon Dioxide 19 L BUN 24 H Creatinine Glucose 207 H POC Glucose 197 H Calcium 7.6 L Phosphorus Iron TIBC Transferrin Total Bilirubin Alkaline Phosphatase Troponin T Total Protein Albumin HDL Cholesterol TSH Free T4 Urine WBC (Auto) Crossmatch 01/17/18 01/17/18 01/17/18 01:22 12:13 18:41 WBC RBC Hgb Hct MCH RDW Plt Count Lymph % (Auto) Lymph # Seg Neutrophils % Seg Neutrophils # Sodium Potassium Chloride Carbon Dioxide BUN Creatinine Glucose POC Glucose 203 H 200 H 224 H Calcium Phosphorus Iron TIBC Transferrin Total Bilirubin Alkaline Phosphatase Troponin T Total Protein Albumin HDL Cholesterol TSH Free T4 Urine WBC (Auto) Crossmatch 01/18/18 01/18/18 01/18/18 02:01 05:35 05:35 WBC RBC 3.22 L Hgb 8.4 L Hct 27.3 L MCH 26 L RDW 20.4 H Plt Count 85 L Lymph % (Auto) 7.9 L Lymph # 0.7 L Seg Neutrophils % 87.9 H Seg Neutrophils # 8.3 H Sodium 161 H* Potassium Chloride 128.0 H Carbon Dioxide 19 L BUN 23 H Creatinine Glucose 309 H POC Glucose 299 H Calcium 7.9 L Phosphorus Iron TIBC Transferrin Total Bilirubin Alkaline Phosphatase Troponin T Total Protein Albumin HDL Cholesterol TSH Free T4 Urine WBC (Auto) Crossmatch 01/18/18 01/18/18 01/18/18 12:02 14:57 18:10 WBC RBC Hgb Hct MCH RDW Plt Count Lymph % (Auto) Lymph # Seg Neutrophils % Seg Neutrophils # Sodium 157 H Potassium Chloride 125.3 H Carbon Dioxide 20 L BUN 20 H Creatinine 0.6 L Glucose 323 H POC Glucose 352 H 238 H Calcium 7.9 L Phosphorus Iron TIBC Transferrin Total Bilirubin Alkaline Phosphatase Troponin T Total Protein Albumin HDL Cholesterol TSH Free T4 Urine WBC (Auto) Crossmatch 01/19/18 01/19/18 01/19/18 05:06 11:58 18:11 WBC RBC Hgb Hct MCH RDW Plt Count Lymph % (Auto) Lymph # Seg Neutrophils % Seg Neutrophils # Sodium 155 H Potassium Chloride 119.9 H Carbon Dioxide 21 L BUN Creatinine 0.5 L Glucose 173 H POC Glucose 264 H 215 H Calcium 8.0 L Phosphorus 2.20 L Iron TIBC Transferrin Total Bilirubin Alkaline Phosphatase Troponin T Total Protein Albumin HDL Cholesterol TSH Free T4 Urine WBC (Auto) Crossmatch 01/20/18 01/20/18 01/20/18 00:15 04:57 05:01 WBC 11.3 H RBC 2.94 L Hgb 7.6 L Hct 24.0 L MCH 26 L RDW 19.3 H Plt Count 130 L Lymph % (Auto) 9.2 L Lymph # 1.0 L Seg Neutrophils % 84.3 H Seg Neutrophils # 9.5 H Sodium 149 H Potassium 3.5 L Chloride 112.9 H Carbon Dioxide BUN Creatinine 0.4 L Glucose 177 H POC Glucose 225 H Calcium 7.6 L Phosphorus 2.20 L Iron TIBC Transferrin Total Bilirubin Alkaline Phosphatase Troponin T Total Protein Albumin HDL Cholesterol TSH Free T4 Urine WBC (Auto) Crossmatch 01/20/18 01/20/18 01/21/18 08:05 12:01 00:38 WBC RBC Hgb Hct MCH RDW Plt Count Lymph % (Auto) Lymph # Seg Neutrophils % Seg Neutrophils # Sodium Potassium Chloride Carbon Dioxide BUN Creatinine Glucose POC Glucose 229 H 250 H 239 H Calcium Phosphorus Iron TIBC Transferrin Total Bilirubin Alkaline Phosphatase Troponin T Total Protein Albumin HDL Cholesterol TSH Free T4 Urine WBC (Auto) Crossmatch 01/21/18 01/21/18 05:32 05:46 WBC RBC Hgb Hct MCH RDW Plt Count Lymph % (Auto) Lymph # Seg Neutrophils % Seg Neutrophils # Sodium 150 H Potassium Chloride 112.9 H Carbon Dioxide BUN Creatinine 0.4 L Glucose 169 H POC Glucose 182 H Calcium 7.5 L Phosphorus Iron TIBC Transferrin Total Bilirubin Alkaline Phosphatase Troponin T Total Protein Albumin HDL Cholesterol TSH Free T4 Urine WBC (Auto) Crossmatch
[2018-01-21] MEDS ORDERED: SIMPLE SYRUP FEEDTUBE PRN ×2 (11:53→13:00)
[2018-01-21] MEDS ORDERED: SODIUM BICARBONATE FEEDTUBE PRN (11:53)
[2018-01-21] MEDS ORDERED: PANCREAZE DR 10,500 UNIT FEEDTUBE PRN (12:30)
--- NOTE | 2018-01-21 15:59 | Progress Note ---
Assessment and Plan Acute right MCA ischemic infarct / CVA Anemia -likely chronic Complicated UTI, cx negtive Hydronephrosis with left renal mass Acute kidney injury - likeld due to volume depletion hypovolemia, patient was on HCTZ at home Aphasia and dense left hemiplegia - due to acute CVA Dysphagia with risk for aspiration Elevated troponin - likely due to acute renal failure. EKG negative Ischemic cardiomyopathy with EF 30-35% hypernatremia, likely dehydration Leukocytosis , Afebrile since 01/17/18. Etiology most likely UTI +/- Kidney mass. Failure to Thrive, severe malnutrition - Continue supportive care - d/c hypotonic fluid to avoid anaserca, treat hypernatremia with free water flash with TF and given a dose of HCTZ - Continue ceftriaxone through 01/23/18. - Anticoagulation held due to large CVA concern for conversion to hemorrhagic - Hold NSAIDs and other nephrotoxins. Renally dose all medications - Strict I's and O's, monitor volume status and electrolytes - Monitor CBC and electrolytes - Obtained swallow evaluation would need a PEG for feeding - consulted GI for PEG placement, but family now do not want that considering her poor prognosis - Discussed with family patient remains DO NOT RESUSCITATE - Very poor prognosis, family decided for hospice Brief history: The patient is a 87 YO AAF with history significant for Hypertension, DM type 2 , CVA, Dementia and jail resident who was sent to the ER for evaluation of change in the mental status. She was noted to have aphasia and unable to use left side of the body. MRI of the brain showed right MCA territory infarct. Radiological data: CT abdomen/pelvis showed irregular large cystic mass on left kidney inflammatory vs malignancy?, bilateral hydro and dilated collecting system, markedly dilated bladder, dilated CBD and distended GB with stones. Biliary can no cholecystitis. MRI brain - acute right MCA CVA HIDA scan - no sign of cholecystitis Physical exam: General appearance: Pt in NAD, non verbal. Eyes: anicteric sclerae, moist conjunctivae; HENT: Atraumatic; oropharynx limited +NGT Neck: Trachea midline; supple, no thyromegaly or lymphadenopathy Lungs: left crackles CV: S1,S2. Abdomen: Soft, + mass sensation Extremities: No peripheral edema or extremity lymphadenopathy Skin: Normal temperature, turgor and texture; no rash, ulcers or subcutaneous nodules Psych: non verbal Neuro: non verbal. Left sided weakness Subjective Date of service: 01/21/18 Principal diagnosis: Acute rt. MCA infarct., ischemic cardiomyopathy, renal mass. Interval history: Patient is seen today for: CVA, Seen and examined at bedside; 24hour events reviewed; nursing staff ; no adverse overnight events reported Discussed with daughter about plan of care, they finally decided not to go for PEG tube, they are now decided for hospice waiting hospice placement, family also wants her sodium level to be improve before discharge. Objective - Constitutional Vitals: Vital Signs - 12hr 01/21/18 01/21/18 01/21/18 06:13 06:14 08:04 Pulse Rate 104 H 104 H Pulse Rate [ 89 Anterior Bilateral Throughout] Respiratory 20 Rate [Anterior Bilateral Throughout] Blood Pressure 149/61 149/61 O2 Sat by Pulse 100 Oximetry 01/21/18 01/21/18 01/21/18 08:15 08:55 13:19 Pulse Rate 89 Pulse Rate [ 94 H 101 H Anterior Bilateral Throughout] Respiratory 18 20 Rate [Anterior Bilateral Throughout] Blood Pressure O2 Sat by Pulse Oximetry - Labs CBC & Chem 7: 01/20/18 05:01 01/22/18 04:48 Labs: Abnormal lab results 01/21/18 01/21/18 01/21/18 Range/Units 00:38 05:32 05:46 Sodium 150 H (137-145) mmol/L Chloride 112.9 H (98-107) mmol/L Creatinine 0.4 L (0.7-1.2) mg/dL Glucose 169 H (65-100) mg/dL POC Glucose 239 H 182 H (70-105) Calcium 7.5 L (8.4-10.2) mg/dL 01/21/18 Range/Units 11:43 Sodium (137-145) mmol/L Chloride (98-107) mmol/L Creatinine (0.7-1.2) mg/dL Glucose (65-100) mg/dL POC Glucose 221 H (70-105) Calcium (8.4-10.2) mg/dL
[2018-01-21] MEDS: cefTRIAXone 1 GM in NACL 0.9% 20 ML IV SCH (16:33)
[2018-01-21] MEDS ORDERED: POTASSIUM CHLORIDE ONE (16:54)
[2018-01-21] MEDS: TYLENOL PO PRN (21:26)
[2018-01-22] MEDS: LOPRESSOR PO SCH ×2 (00:19→06:09)
[2018-01-22] MEDS: NOVOLOG SUB-Q SCH ×4 (00:21→17:37)
[2018-01-22 06:03] LABS: BUN/Creatinine Ratio 47; Blood Urea Nitrogen 14 mg/dL (7-17); Calcium 7.9 mg/dL (8.4-10.2); Hemolysis Index 11
[2018-01-22] MEDS: NITRO DUR TD SCH (06:10)
--- NOTE | 2018-01-22 07:31 | Progress Note ---
Assessment and Plan 1. Hypernatremia: Continue water flushes. Received a dose of HCTZ yesterday. Will give her another dose of HCTZ today. Monitor Sodium level. 2. Acute kidney injury: Renal function is better. 3. Electrolytes: Monitor and replete. 4. Metabolic acidosis: Improved. 5. Bilateral hydronephrosis: Evaluated by Urologist. 6. Acute MCA territory CVA: Followed by Neuro. 7. Left kidney mass. Subjective Date of service: 01/22/18 Principal diagnosis: Acute rt. MCA infarct., ischemic cardiomyopathy, renal mass. Interval history: Patient was seen and examined at the bedside. Objective - Vital Signs Vital signs: Vital Signs - 12hr 01/21/18 01/21/18 01/21/18 19:45 19:55 20:26 Temperature Pulse Rate Pulse Rate [ 104 H 105 H Throughout] Respiratory 30 H Rate Respiratory 18 18 Rate [ Throughout] Blood Pressure O2 Sat by Pulse 100 Oximetry 01/21/18 01/21/18 01/21/18 20:31 21:26 22:00 Temperature 100.8 F H Pulse Rate 110 H 106 H Pulse Rate [ Throughout] Respiratory 22 30 H Rate Respiratory Rate [ Throughout] Blood Pressure 131/67 O2 Sat by Pulse 96 Oximetry 01/21/18 01/22/18 01/22/18 23:35 00:19 05:36 Temperature 98.5 F Pulse Rate 114 H 114 H 93 H Pulse Rate [ Throughout] Respiratory 22 20 Rate Respiratory Rate [ Throughout] Blood Pressure 145/60 145/60 138/48 O2 Sat by Pulse 98 100 Oximetry 01/22/18 01/22/18 06:09 06:10 Temperature Pulse Rate 97 H 97 H Pulse Rate [ Throughout] Respiratory Rate Respiratory Rate [ Throughout] Blood Pressure 145/57 145/57 O2 Sat by Pulse Oximetry - General Appearance General appearance: well-developed, appears stated age, other (no distress) EENT: ATNC, PERRL Neck: supple Respiratory: Present: Clear to Ascultation Cardiology: regular, S1S2, no murmurs Gastrointestinal: normoactive bowel sounds, no tenderness Integumentary: no rash Neurologic: other (grimaces, non-verbal) Musculoskeletal: other (trace pedal edema) - Lab 01/20/18 05:01 01/22/18 04:48 Most recent lab results Calcium 7.9 mg/dL (8.4-10.2) L 01/22/18 04:48 Phosphorus 2.80 mg/dL (2.5-4.5) D 01/21/18 05:32 Magnesium 2.10 mg/dL (1.7-2.3) 01/22/18 04:48
[2018-01-22] MEDS ORDERED: POTASSIUM CHLORIDE FEEDTUBE ONE (07:40)
[2018-01-22] MEDS ORDERED: HCTZ FEEDTUBE SCH (08:00)
[2018-01-22] MEDS: DUONEB *Not for PRN Use IH SCH ×3 (08:18→20:11)
[2018-01-22] MEDS: ZESTRIL PO SCH (09:13)
[2018-01-22] MEDS: K-PHOS NEUTRAL FEEDTUBE SCH ×3 (09:17→17:37)
[2018-01-22] MEDS: BABY ASPIRIN PO SCH (09:18)
[2018-01-22] MEDS: PEPCID PO SCH (09:18)
--- NOTE | 2018-01-22 12:24 | Discharge Summary ---
Providers - Providers Date of Admission: 01/13/18 22:13 Date of discharge: 01/24/18 Attending physician: VIKASH REYNAGA 01/14/18 00:08 Consult to Physician [CONS] Routine Consulting Provider: HARLEY CAMPOS Reason For Exam: acute CVA Place consult to:: Neurology transportation escort Notified:: alison Phone number called:: [phone] Was contact made?: Yes If yes, spoke with:: alison Time called:: 08:16 Occupational Therapy Evaluate and Treat [CONS] Routine Comment: Reason For Exam: Neuro deficits Physical Therapy Evaluation and Treat [CONS] Routine Comment: Reason For Exam: Neuro deficits 01/14/18 07:58 Consult to Wound/ET Nurse [CONS] Routine Reason For Exam: wound eval 01/14/18 10:23 Speech Therapy Evaluation and Treat [CONS] Routine Reason For Exam: dysphagia 01/14/18 11:01 Consult to Physician [CONS] Routine Consulting Provider: ANIKA NAVARRO Reason For Exam: SEPSIS Place consult to:: dr Miguel Notified:: Dr Miguel Phone number called:: [phone] Was contact made?: Yes 01/15/18 16:49 Consult to Dietitian/Nutrition [CONS] Routine Physician Instructions: Assess nutrtn needs, initiate, modify, manage TF Reason For Exam: Reason for Consult: Write/Manage Tube Feeding Reason for Consult: Write/Manage Tube Feeding 01/16/18 02:58 Consult to Physician [CONS] Routine Consulting Provider: JOHANA PASCUAL Reason For Exam: right kindey mass Place consult to:: Dr Pascual Notified:: service Phone number called:: [phone] Was contact made?: No Time called:: 09:00 Comment:: Message left 01/18/18 07:18 Consult to Dietitian/Nutrition [CONS] Routine Physician Instructions: Assess nutrtn needs, initiate, modify, manage TF Reason For Exam: Reason for Consult: Write/Manage Tube Feeding Reason for Consult: Write/Manage Tube Feeding 01/18/18 07:20 Consult to Physician [CONS] Routine Consulting Provider: LARISSA LEE Reason For Exam: hypernatremia Place consult to:: Dr Lee Notified:: Minnie HUNG Was contact made?: Yes If yes, spoke with:: Dr. Lee Time called:: 08:32 01/19/18 12:55 Consult to Physician [CONS] Routine Consulting Provider: ANA MEJIA Reason For Exam: PEG placement Place consult to:: Dr. Mejia Notified:: Malini RN Phone number called:: Was contact made?: Yes If yes, spoke with:: Ora-office Time called:: 13:05 01/21/18 09:52 Consult to Case Management [CONS] Routine Services Needed at Discharge: Other Notified:: nikki Phone number called:: [phone] Was contact made?: Yes If yes, spoke with:: Nikki Time called:: 09:53 Comment:: Inpt Hospice Additional Physician Instructions: Inpatient Hospice eval & treat 01/21/18 11:54 Consult to Dietitian/Nutrition [CONS] Routine Physician Instructions: Assess nutrtn needs, initiate, modify, manage TF Reason For Exam: Reason for Consult: Write/Manage Tube Feeding Reason for Consult: Write/Manage Tube Feeding Primary care physician: [employer] Hospitalization Condition: Stable Hospital course: Brief history: The patient is a 87 YO AAF with history significant for Hypertension, DM type 2 , CVA, Dementia and halfway resident who was sent to the ER for evaluation of change in the mental status. She was noted to have aphasia and unable to use left side of the body. MRI of the brain showed right MCA territory infarct. Discharge diagnosis: Acute right MCA ischemic infarct / CVA - MRI brain - acute right MCA CVA - cont aspirin, statin - Anticoagulation held due to large CVA concern for conversion to hemorrhagic Anemia -likely chronic - monitored with frequent CBC - s/p 2units PRBC transfusion on 01/14/18 Complicated UTI, cx negtive - Continue ceftriaxone through 01/23/18. Hydronephrosis with left renal mass - CT abdomen/pelvis showed irregular large cystic mass on left kidney inflammatory vs malignancy?, bilateral hydro and dilated collecting system, markedly dilated bladder, dilated CBD and distended GB with stones. - Urology recommended left nephrectomy, family refused Acute kidney injury - likeld due to volume depletion hypovolemia, patient was on HCTZ at home - Hold NSAIDs and other nephrotoxins. Renally dose all medications - Strict I's and O's, monitor volume status and electrolytes Aphasia and dense left hemiplegia - due to acute CVA - provided supportive care and physical therapy, speech therapy Dysphagia with risk for aspiration - NPO recommend per speech, maintained with dobhoff TF - Obtained swallow evaluation would need a PEG for feeding - consulted GI for PEG placement, but family do not want that considering her overall poor prognosis and comorbid condition Elevated troponin - likely due to acute renal failure. EKG negative - cont aspirin, BB Ischemic cardiomyopathy with EF 30-35% - hold diuretics for dehydration and recent APRIL - cont aspirin, BB, low dose ACEI, statin, hypernatremia, likely dehydration, - improved with free water and hypotonic fluid - then d/zbigniew hypotonic fluid to avoid anaserca, treated hypernatremia solelu with free water flash with TF and given couple dose of HCTZ Sepsis, POA , Etiology most likely UTI +/- Kidney mass. - treated with iv abx Failure to Thrive, severe malnutrition - continued Tf per nutrition recommendation Radiological data: CT abdomen/pelvis showed irregular large cystic mass on left kidney inflammatory vs malignancy?, bilateral hydro and dilated collecting system, markedly dilated bladder, dilated CBD and distended GB with stones. MRI brain - acute right MCA CVA HIDA scan - no sign of cholecystitis Physical exam: General appearance: Pt in NAD, non verbal. Eyes: anicteric sclerae, moist conjunctivae; HENT: Atraumatic; oropharynx limited +NGT Neck: Trachea midline; supple, no thyromegaly or lymphadenopathy Lungs: left crackles CV: S1,S2. Abdomen: Soft, + mass sensation Extremities: No peripheral edema or extremity lymphadenopathy Skin: Normal temperature, turgor and texture; no rash, ulcers or subcutaneous nodules Psych: non verbal Neuro: non verbal. Left sided weakness Disposition: [id number] ([facility]) Time spent for discharge: 40 minutes Core Measure Documentation - Palliative Care Palliative Care/ Comfort Measures: Not Applicable - Core Measures Any of the following diagnoses?: heart failure, stroke - Heart Failure Discharge Requirements LONA/ARB for LVSD if EF <40%: Yes Beta alexei at discharge: Yes - Stroke Discharge Requirements Statin for LDL = or >70 mg/dl on DC: Yes Anticoag for atrial fib/atrial flutter: Not Applicable Antithrombotic for ischemic stroke: Yes Exam - Constitutional Vitals: Temp Pulse Resp BP Pulse Ox 99.2 F 80 18 122/48 100 01/22/18 09:06 01/22/18 09:13 01/22/18 09:06 01/22/18 09:13 01/22/18 09:06 Plan Activity: up only with assistance Diet: per dietitian instruction Durable Medical Equipment Needed Upon Discharge: Oxygen (2L ) Additional Instructions: Diabetisource at 45ml/hr (goal rate). Free water 300ml per Dobhoff tube q4h. CBC, BMP in next 24h Follow up with: PRIMARY CARE,MD [Primary Care Provider] - 3-5 Days Prescriptions: AtorvaSTATin [Lipitor] 40 mg PO QHS #30 tablet Acetaminophen 650 mg PO Q6H PRN #30 capsule PRN Reason: Pain Aspirin 81 mg PO QDAY #30 tab.chew Aspirin [Aspirin BABY CHEW TAB] 81 mg PO QDAY #30 tab.chew Cholecalciferol Vit D3 [Vitamin D3] 1,000 unit PO QDAY #30 tablet Ferrous Sulfate [Feosol 325 MG tab] 325 mg PO BID #60 tablet Insulin Lispro [Humalog] 5 unit SQ AC 30 Days vial Lisinopril [Zestril TAB] 2.5 mg PO QDAY #30 tablet Metoprolol [Lopressor TAB] 25 mg PO Q6H #60 tablet Multivitamin [Multiple Vitamins] 1 each PO QDAY #30 tablet Omeprazole 20 mg PO QDAY #30 capsule. Phosphorus #1 [K-Phos Neutral] 250 mg FEEDTUBE QID #60 tablet Simple Syrup 15 ml FEEDTUBE PRN PRN 30 Days oral.liqd PRN Reason: Hypoglycemia Sodium Bicarbonate 325 mg FEEDTUBE PRN PRN 30 Days tablet PRN Reason: For Clogged Feeding Tube Ipratropium/Albuterol Sulfate [DUONEB *Not for PRN Use*] 1 ampul IH TIDRT #30 ampul.neb
[2018-01-22] MEDS: cefTRIAXone 1 GM in NACL 0.9% 20 ML IV SCH (12:59)
[2018-01-23] MEDS: K-PHOS NEUTRAL FEEDTUBE SCH ×5 (00:01→23:45)
[2018-01-23] MEDS: LOPRESSOR PO SCH ×4 (00:04→12:45)
[2018-01-23] MEDS: NOVOLOG SUB-Q SCH ×5 (01:00→19:17)
[2018-01-23] MEDS: NITRO DUR TD SCH (05:34)
[2018-01-23 06:11] LABS: BUN/Creatinine Ratio 40; Blood Urea Nitrogen 16 mg/dL (7-17); Calcium 8.2 mg/dL (8.4-10.2); Hemolysis Index 22
--- NOTE | 2018-01-23 08:04 | Progress Note ---
Assessment and Plan 1. Hypernatremia: Continue water flushes. Received 2 doses of HCTZ. Sodium level is still high. Monitor Sodium level. 2. Acute kidney injury: Renal function is better. 3. Electrolytes: Monitor and replete. 4. Metabolic acidosis: Improved. 5. Bilateral hydronephrosis: Evaluated by Urologist. 6. Acute MCA territory CVA. 7. Left kidney mass. Subjective Date of service: 01/23/18 Principal diagnosis: Acute rt. MCA infarct., ischemic cardiomyopathy, renal mass. Interval history: Patient was seen and examined at the bedside. Objective - Vital Signs Vital signs: Vital Signs - 12hr 01/22/18 01/22/18 01/22/18 20:11 20:15 20:30 Temperature 99.7 F H Pulse Rate 120 H Pulse Rate [ 124 H 122 H Anterior Bilateral Throughout] Pulse Rate [ Right Radial] Respiratory 18 Rate Respiratory 40 H 36 H Rate [Anterior Bilateral Throughout] Blood Pressure Blood Pressure 139/69 [Left] O2 Sat by Pulse 100 Oximetry 01/23/18 01/23/18 01/23/18 00:04 00:33 00:42 Temperature 98 F Pulse Rate 120 H 132 H Pulse Rate [ Anterior Bilateral Throughout] Pulse Rate [ 120 H Right Radial] Respiratory 20 22 Rate Respiratory Rate [Anterior Bilateral Throughout] Blood Pressure 139/69 Blood Pressure 128/62 [Left] O2 Sat by Pulse 100 Oximetry 01/23/18 01/23/18 01/23/18 01:00 05:00 05:27 Temperature 99.5 F Pulse Rate 100 H 103 H 100 H Pulse Rate [ Anterior Bilateral Throughout] Pulse Rate [ Right Radial] Respiratory 18 Rate Respiratory Rate [Anterior Bilateral Throughout] Blood Pressure Blood Pressure 157/86 [Left] O2 Sat by Pulse 99 Oximetry 01/23/18 01/23/18 01/23/18 05:34 05:50 06:40 Temperature Pulse Rate 100 H 100 H 100 H Pulse Rate [ Anterior Bilateral Throughout] Pulse Rate [ Right Radial] Respiratory Rate Respiratory Rate [Anterior Bilateral Throughout] Blood Pressure 157/86 157/86 157/86 Blood Pressure [Left] O2 Sat by Pulse Oximetry - General Appearance General appearance: well-developed, appears stated age, other (stuporous) EENT: ATNC Neck: supple Respiratory: Present: Clear to Ascultation Cardiology: regular, S1S2 Gastrointestinal: normoactive bowel sounds, no tenderness, other (PEG tube noted ) Integumentary: no rash Neurologic: other (not following any command, non-verbal) Musculoskeletal: other (no edema) - Lab 01/20/18 05:01 01/23/18 04:57 Most recent lab results Calcium 8.2 mg/dL (8.4-10.2) L 01/23/18 04:57 Phosphorus 2.80 mg/dL (2.5-4.5) D 01/21/18 05:32 Magnesium 2.10 mg/dL (1.7-2.3) 01/22/18 04:48
[2018-01-23] MEDS: DUONEB *Not for PRN Use IH SCH ×3 (09:03→20:39)
[2018-01-23] MEDS: PEPCID PO SCH (11:05)
[2018-01-23] MEDS: BABY ASPIRIN PO SCH (11:05)
[2018-01-23] MEDS: ZESTRIL PO SCH (11:06)
--- NOTE | 2018-01-23 13:38 | Progress Note ---
Assessment and Plan // Acute right MCA ischemic infarct / CVA - MRI brain - acute right MCA CVA - cont aspirin, statin - Anticoagulation held due to large CVA concern for conversion to hemorrhagic // Anemia -likely chronic - monitored with frequent CBC - s/p 2units PRBC transfusion on 01/14/18 // Complicated UTI, cx negtive - Continue ceftriaxone through 01/23/18. // Hydronephrosis with left renal mass - CT abdomen/pelvis showed irregular large cystic mass on left kidney inflammatory vs malignancy?, bilateral hydro and dilated collecting system, markedly dilated bladder, dilated CBD and distended GB with stones. - Urology recommended left nephrectomy, family refused // Acute kidney injury - likeld due to volume depletion hypovolemia, patient was on HCTZ at home - Hold NSAIDs and other nephrotoxins. Renally dose all medications - Strict I's and O's, monitor volume status and electrolytes // Aphasia and dense left hemiplegia - due to acute CVA - provided supportive care and physical therapy, speech therapy // Dysphagia with risk for aspiration - NPO recommend per speech, maintained with dobhoff TF - Obtained swallow evaluation would need a PEG for feeding - consulted GI for PEG placement, but family do not want that considering her overall poor prognosis and comorbid condition // Elevated troponin - likely due to acute renal failure. EKG negative - cont aspirin, BB // Ischemic cardiomyopathy with EF 30-35% - hold diuretics for dehydration and recent APRIL - cont aspirin, BB, low dose ACEI, statin, // hypernatremia, likely dehydration, - improved with free water and hypotonic fluid - d/zbigniew hypotonic fluid to avoid anaserca, now treating hypernatremia solely with free water flash with TF and given couple dose of HCTZ // Sepsis, POA , Etiology most likely UTI +/- Kidney mass. -getting with iv abx // Failure to Thrive, severe malnutrition - continued Tf per nutrition recommendation brief History: The patient is a 87 YO AAF with history significant for Hypertension, DM type 2, CVA, Dementia and [facility] resident who was sent to the ER for evaluation of change in the mental status. She was noted to have aphasia and unable to use left side of the body. MRI of the brain showed right MCA territory infarct. Radiological data: CT abdomen/pelvis showed irregular large cystic mass on left kidney inflammatory vs malignancy?, bilateral hydro and dilated collecting system, markedly dilated bladder, dilated CBD and distended GB with stones. MRI brain - acute right MCA CVA HIDA scan - no sign of cholecystitis Physical exam: General appearance: Pt in NAD, non verbal. Eyes: anicteric sclerae, moist conjunctivae; HENT: Atraumatic; oropharynx limited +NGT Neck: Trachea midline; supple, no thyromegaly or lymphadenopathy Lungs: left crackles CV: S1,S2. Abdomen: Soft, + mass sensation Extremities: No peripheral edema or extremity lymphadenopathy Skin: Normal temperature, turgor and texture; no rash, ulcers or subcutaneous nodules Psych: non verbal Neuro: non verbal. Left sided weakness Subjective Date of service: 01/22/18 Principal diagnosis: Acute rt. MCA infarct., ischemic cardiomyopathy, renal mass. Interval history: Patient is seen today for: CVA, Seen and examined at bedside; 24hour events reviewed; nursing staff ; no adverse overnight events reported Discussed with daughters about plan of care at bedside today, they finally decided not to go for PEG tube, they are now decided for hospice waiting hospice placement, Objective - Constitutional Vitals: Vital Signs - 12hr 01/23/18 01/23/18 01/23/18 05:00 05:27 05:34 Temperature 99.5 F Pulse Rate 103 H 100 H 100 H Pulse Rate [ Throughout] Respiratory 18 Rate Respiratory Rate [ Throughout] Blood Pressure 157/86 Blood Pressure 157/86 [Left] O2 Sat by Pulse 99 Oximetry 01/23/18 01/23/18 01/23/18 05:50 06:40 07:48 Temperature 99.2 F Pulse Rate 100 H 100 H 85 Pulse Rate [ Throughout] Respiratory 18 Rate Respiratory Rate [ Throughout] Blood Pressure 157/86 157/86 122/57 Blood Pressure [Left] O2 Sat by Pulse 98 Oximetry 01/23/18 01/23/18 01/23/18 07:49 08:58 09:07 Temperature Pulse Rate 86 Pulse Rate [ 88 Throughout] Respiratory Rate Respiratory 24 Rate [ Throughout] Blood Pressure Blood Pressure [Left] O2 Sat by Pulse 98 100 Oximetry 01/23/18 01/23/18 01/23/18 09:15 11:06 12:45 Temperature Pulse Rate 101 H 101 H Pulse Rate [ 86 Throughout] Respiratory Rate Respiratory 22 Rate [ Throughout] Blood Pressure 122/57 118/55 Blood Pressure [Left] O2 Sat by Pulse Oximetry - Labs CBC & Chem 7: 01/20/18 05:01 01/23/18 04:57 Labs: Abnormal lab results 01/22/18 01/22/18 01/23/18 Range/Units 17:11 21:17 04:57 Sodium 150 H (137-145) mmol/L Chloride 109.4 H (98-107) mmol/L Creatinine 0.4 L (0.7-1.2) mg/dL Glucose 229 H (65-100) mg/dL POC Glucose 236 H 240 H (70-105) Calcium 8.2 L (8.4-10.2) mg/dL 01/23/18 Range/Units 11:12 Sodium (137-145) mmol/L Chloride (98-107) mmol/L Creatinine (0.7-1.2) mg/dL Glucose (65-100) mg/dL POC Glucose 296 H (70-105) Calcium (8.4-10.2) mg/dL
[2018-01-23] MEDS: cefTRIAXone 1 GM in NACL 0.9% 20 ML IV SCH (14:19)
[2018-01-24] MEDS: LOPRESSOR PO SCH ×2 (00:36→07:01)
[2018-01-24] MEDS: NOVOLOG SUB-Q SCH ×2 (00:45→07:13)
[2018-01-24 05:31] LABS: BUN/Creatinine Ratio 40; Blood Urea Nitrogen 16 mg/dL (7-17); Calcium 8.2 mg/dL (8.4-10.2); Hemolysis Index 1
[2018-01-24] MEDS: NITRO DUR TD SCH (07:01)
[2018-01-24] MEDS: DUONEB *Not for PRN Use IH SCH ×2 (07:27→13:28)
--- NOTE | 2018-01-24 08:02 | Progress Note ---
Assessment and Plan // Acute right MCA ischemic infarct / CVA - MRI brain - acute right MCA CVA - cont aspirin, statin - Anticoagulation held due to large CVA concern for conversion to hemorrhagic // Anemia -likely chronic - monitored with frequent CBC - s/p 2units PRBC transfusion on 01/14/18 // Complicated UTI, cx negtive - Continue ceftriaxone through 01/23/18. // Hydronephrosis with left renal mass - CT abdomen/pelvis showed irregular large cystic mass on left kidney inflammatory vs malignancy?, bilateral hydro and dilated collecting system, markedly dilated bladder, dilated CBD and distended GB with stones. - Urology recommended left nephrectomy, family refused // Acute kidney injury - likeld due to volume depletion hypovolemia, patient was on HCTZ at home - Hold NSAIDs and other nephrotoxins. Renally dose all medications - Strict I's and O's, monitor volume status and electrolytes // Aphasia and dense left hemiplegia - due to acute CVA - provided supportive care and physical therapy, speech therapy // Dysphagia with risk for aspiration - NPO recommend per speech, maintained with dobhoff TF - Obtained swallow evaluation would need a PEG for feeding - consulted GI for PEG placement, but family do not want that considering her overall poor prognosis and comorbid condition // Elevated troponin - likely due to acute renal failure. EKG negative - cont aspirin, BB // Ischemic cardiomyopathy with EF 30-35% - hold diuretics for dehydration and recent APRIL - cont aspirin, BB, low dose ACEI, statin, // hypernatremia, likely dehydration, - improved with free water and hypotonic fluid - d/zbigniew hypotonic fluid to avoid anaserca, now treating hypernatremia solely with free water flash with TF and given couple dose of HCTZ // Sepsis, POA , Etiology most likely UTI +/- Kidney mass. -getting with iv abx, last dose today // Failure to Thrive, severe malnutrition - continued Tf per nutrition recommendation brief History: The patient is a 87 YO AAF with history significant for Hypertension, DM type 2, CVA, Dementia and long term resident who was sent to the ER for evaluation of change in the mental status. She was noted to have aphasia and unable to use left side of the body. MRI of the brain showed right MCA territory infarct. Radiological data: CT abdomen/pelvis showed irregular large cystic mass on left kidney inflammatory vs malignancy?, bilateral hydro and dilated collecting system, markedly dilated bladder, dilated CBD and distended GB with stones. MRI brain - acute right MCA CVA HIDA scan - no sign of cholecystitis Physical exam: General appearance: Pt in NAD, non verbal. Eyes: anicteric sclerae, moist conjunctivae; HENT: Atraumatic; oropharynx limited +NGT Neck: Trachea midline; supple, no thyromegaly or lymphadenopathy Lungs: left crackles CV: S1,S2. Abdomen: Soft, + mass sensation Extremities: No peripheral edema Skin: Normal temperature, turgor and texture; no rash, ulcers or subcutaneous nodules Psych: non verbal Neuro: non verbal. Left sided weakness Subjective Date of service: 01/23/18 Principal diagnosis: Acute rt. MCA infarct., ischemic cardiomyopathy, renal mass. Interval history: Patient is seen today for: CVA, Seen and examined at bedside; 24hour events reviewed; nursing staff ; no adverse overnight events reported Discussed with daughters at bedside today about plan of care waiting hospice placement, Objective - Constitutional Vitals: Vital Signs - 12hr 01/23/18 01/23/18 01/23/18 20:01 20:39 20:47 Temperature Pulse Rate 104 H Pulse Rate [ Right Radial] Pulse Rate [ 109 H 106 H Throughout] Respiratory Rate Respiratory 16 16 Rate [ Throughout] Blood Pressure O2 Sat by Pulse 100 Oximetry 01/24/18 01/24/18 01/24/18 00:20 00:36 01:19 Temperature 99.5 F Pulse Rate 106 H 106 H Pulse Rate [ 105 H Right Radial] Pulse Rate [ Throughout] Respiratory 22 22 Rate Respiratory Rate [ Throughout] Blood Pressure 133/63 133/63 O2 Sat by Pulse 99 Oximetry 01/24/18 01/24/18 01/24/18 04:59 07:01 07:27 Temperature 99.0 F Pulse Rate 113 H 98 H Pulse Rate [ Right Radial] Pulse Rate [ Throughout] Respiratory 22 Rate Respiratory Rate [ Throughout] Blood Pressure 129/60 123/62 O2 Sat by Pulse 100 96 Oximetry - Labs CBC & Chem 7: 01/20/18 05:01 01/24/18 04:42 Labs: Abnormal lab results 01/23/18 01/23/18 01/24/18 Range/Units 11:12 16:45 00:32 Creatinine (0.7-1.2) mg/dL Glucose (65-100) mg/dL POC Glucose 296 H 251 H 289 H (70-105) Calcium (8.4-10.2) mg/dL 01/24/18 01/24/18 Range/Units 04:42 07:09 Creatinine 0.4 L (0.7-1.2) mg/dL Glucose 312 H (65-100) mg/dL POC Glucose 322 H (70-105) Calcium 8.2 L (8.4-10.2) mg/dL
--- NOTE | 2018-01-24 10:14 | Progress Note ---
Assessment and Plan 1. Hypernatremia: Continue water flushes. Sodium level is better today Monitor Sodium level. 2. Acute kidney injury: Renal function is better. 3. Electrolytes: Monitor and replete. 4. Metabolic acidosis: Improved. 5. Bilateral hydronephrosis: Evaluated by Urologist. 6. Acute MCA territory CVA. 7. Left kidney mass. Subjective Date of service: 01/24/18 Principal diagnosis: Acute rt. MCA infarct., ischemic cardiomyopathy, renal mass. Interval history: Patient was seen and examined at the bedside. Objective - Vital Signs Vital signs: Vital Signs - 12hr 01/24/18 01/24/18 01/24/18 00:20 00:36 01:19 Temperature 99.5 F Pulse Rate 106 H 106 H Pulse Rate [ 105 H Right Radial] Respiratory 22 22 Rate Blood Pressure 133/63 133/63 O2 Sat by Pulse 99 Oximetry 01/24/18 01/24/18 01/24/18 04:59 07:01 07:27 Temperature 99.0 F Pulse Rate 113 H 98 H Pulse Rate [ Right Radial] Respiratory 22 Rate Blood Pressure 129/60 123/62 O2 Sat by Pulse 100 96 Oximetry 01/24/18 08:00 Temperature 99.6 F Pulse Rate 107 H Pulse Rate [ Right Radial] Respiratory 20 Rate Blood Pressure 127/56 O2 Sat by Pulse 100 Oximetry - General Appearance General appearance: well-developed, appears stated age, other (no distress, NG feeding tube noted) EENT: ATNC Neck: supple Respiratory: Present: Clear to Ascultation Cardiology: regular, S1S2, no murmurs Gastrointestinal: normoactive bowel sounds, no tenderness Integumentary: no rash Neurologic: other (opens eyes, non-verbal, not following any command) Musculoskeletal: other (no edema) - Lab 01/20/18 05:01 01/24/18 04:42 Most recent lab results Calcium 8.2 mg/dL (8.4-10.2) L 01/24/18 04:42 Phosphorus 2.80 mg/dL (2.5-4.5) D 01/21/18 05:32 Magnesium 2.10 mg/dL (1.7-2.3) 01/22/18 04:48
[2018-01-24] MEDS ORDERED: POTASSIUM CHLORIDE FEEDTUBE NR (11:00)
[2018-01-24 17:14] VITALS: BP 123/53
== END 2018-01-24 18:12 | disposition hospice, inpatient (51) | DRG 871 ==
LOC: ED 16:07 → EDBD 16:07 → 4A 22:13
PROVIDERS: ADMIT Internal Medicine Geriatric Medicine; ATTEND Internal Medicine
PROC: 30233N1 Transfusion of Nonautologous Red Blood Cells into Peripheral Vein, Percutaneous Approach (ICD-10-PCS; principal; 2018-01-14)
DX: A41.9 Sepsis, unspecified organism (principal); I63.9 Cerebral infarction, unspecified; I21.A1 Myocardial infarction type 2; E43 Unspecified severe protein-calorie malnutrition; N17.9 Acute kidney failure, unspecified; R47.01 Aphasia; N39.0 Urinary tract infection, site not specified; N13.30 Unspecified hydronephrosis; G81.94 Hemiplegia, unspecified affecting left nondominant side; E87.0 Hyperosmolality and hypernatremia; E11.9 Type 2 diabetes mellitus without complications; F03.90 Unspecified dementia, unspecified severity, without behavioral disturbance, psychotic disturbance, mood disturbance, and anxiety; D63.8 Anemia in other chronic diseases classified elsewhere; N28.89 Other specified disorders of kidney and ureter; E86.1 Hypovolemia; I25.5 Ischemic cardiomyopathy; R13.10 Dysphagia, unspecified; E86.0 Dehydration; I11.0 Hypertensive heart disease with heart failure; I50.9 Heart failure, unspecified; Z66 Do not resuscitate; E87.6 Hypokalemia; D69.6 Thrombocytopenia, unspecified; Z68.23 Body mass index [BMI] 23.0-23.9, adult; Z79.82 Long term (current) use of aspirin; Z79.899 Other long term (current) drug therapy
CPT/HCPCS: 36415; 70450; 70544; 70551; 71045; 74018; 74178; 78227; 80048; 80053; 80061; 81001; 82306; 82550; 82553; 82607; 82728; 82747; 82962; 83036; 83550; 83735; 84100; 84439; 84443; 84484; 85025; 85027; 86850; 86900; 86901; 86920; 87040; 87086; 93005; 93010; 93306; 93880; 94640; 94760; A9270-GY; A9537; G8978-GP; G8979-GP; G8980-GP; G8987-GO; G8988-GO; G8996-GN; G8997-GN; G8998-GN; J0456; J0696; J1815; J2270; J2543; J2805; J3370; J7030; J7040; J7050; J7070; P9016; Q9967